=== PATIENT | female | born 1940 | race Caucasian/White ===

== ENCOUNTER 2019-08-08 20:40 | Inpatient (IN) | payer MEDICARE ==
[~2019-08-08] VITALS: Ht 170.2 cm; Wt 60.3 kg
[~2019-08-08 20:40] MED LIST: ASPI-482 PO; CALC400T5 PO; CHOL2000 PO; DOCU-109 PO; MTH/1CAP PO; POLY17PO29 PO; PRED5POW8 MC; SULF500T36 PO
[2019-08-08] MEDS ORDERED: IV NORMAL SALINE 1000ML BAG 1,000 ML IV ONE ×2 (20:45→23:00)
[2019-08-08 21:17] LABS: BASO % 0 % (0-3); EOS % 0 % (0-3); HEMATOCRIT 35.1 % (36.0-47.0); HEMOGLOBIN 11.9 g/dL (12.0-15.5); LYMPH % 8 % (24-48); MEAN CORPUSCULAR HEMOGLOBIN 31 pg (25-35); MEAN CORPUSCULAR HGB CONC 34 g/dL (31-37); MEAN CORPUSCULAR VOLUME 91 fL (79-100); MONO # 1.1 x10^3/uL (0.0-1.1); MONO % 9 % (0-9); NEUT # 9.9 x10^3/uL (1.8-7.7); NEUT % 82 % (31-73); PLATELET COUNT 283 x10^3/uL (140-400); RED BLOOD COUNT 3.85 x10^6/uL (3.50-5.40); RED CELL DISTRIBUTION WIDTH 13.6 % (11.5-14.5); WHITE BLOOD COUNT 12.1 x10^3/uL (4.0-11.0)
[2019-08-08 21:27] LABS: PROTHROMBIN TIME PATIENT 12.7 SEC (11.7-14.0)
[2019-08-08 21:36] LABS: CALCIUM 9.5 mg/dL (8.5-10.1); CREATININE 0.8 mg/dL (0.6-1.0); GFR 69.7; POTASSIUM 3.5 mmol/L (3.5-5.1)
--- NOTE | 2019-08-08 21:37 | RAD ---
CT scan of the head without contrast 08/08/2019 Clinical History: Confusion. Expressive aphasia. Technique: Unenhanced, contiguous, 5 mm axial sections were obtained through the head. One or more of the following individualized dose reduction techniques were utilized for this study: 1. Automated exposure control. 2. Adjustment of the mA and/or kV according to patient size. 3. Use of iterative reconstruction technique. Findings: Comparison study is dated 12/04/2014. There is generalized parenchymal atrophy. Areas of decreased attenuation are seen within the periventricular and subcortical white matter of both cerebral hemispheres consistent with areas of small vessel ischemic disease. No acute parenchymal abnormality is seen. No extra-axial fluid collection is noted. No skull fracture is seen. Impression: No acute intracranial abnormality is seen. This result was called to Dr. James at 2133 hours. Electronically signed by: Kwesi Sanz MD (08/08/2019 9:34 PM) [id number]
[2019-08-08 21:41] LABS: ALBUMIN 3.9 g/dL (3.4-5.0); ALBUMIN/GLOBULIN RATIO 1.1 (1.0-1.7); MAGNESIUM 2.1 mg/dL (1.8-2.4); TOTAL BILIRUBIN 0.3 mg/dL (0.2-1.0); TOTAL PROTEIN 7.3 g/dL (6.4-8.2)
--- NOTE | 2019-08-08 21:49 | RAD ---
CT scan of the cervical spine without contrast 08/08/2019 Clinical history: Neck injury. Technique: Unenhanced, contiguous, 0.625 mm axial sections were obtained through the cervical spine. 2.5 mm reconstructed axial and 2 mm coronal and sagittal reconstructed images were obtained. One or more of the following individualized dose reduction techniques were utilized for this study: 1. Automated exposure control. 2. Adjustment of the mA and/or kV according to patient size. 3. Use of iterative reconstruction technique. Findings: Sagittal and coronal reconstructed images demonstrate mild lateral curvature of the cervical spine, convex to the right. There is straightening of the normal cervical lordosis. Degenerative changes consisting of varying degrees of disc space narrowing, vertebral endplate sclerosis and mild anterior and posterior vertebral body osteophyte formation are seen throughout the cervical disc spaces. No fracture or subluxation of the cervical vertebrae is seen. Degenerative changes are seen involving the uncovertebral and facet joints throughout the cervical disc spaces. Impression: No fracture or subluxation of the cervical vertebra is identified. Electronically signed by: Kwesi Sanz MD (08/08/2019 9:46 PM) [id number]
--- NOTE | 2019-08-08 22:37 | PHYS DOC ---
Past Medical History Past Medical History: High Cholesterol, Other Additional Past Medical Histor: urinary hesitancy, rheum. arth., herpes Past Medical History Limited secondary to altered mental status Past Surgical History: Tonsillectomy, Other Additional Past Surgical Histo: uterine prolapse Past Surgical History Limited secondary to altered mental status Smoking Status: Never Smoker Alcohol Use: None Drug Use: None Social History Limited secondary to altered mental status Adult General Chief Complaint Chief Complaint: PAIN ON URINATION HPI HPI 78-year-old female presents via EMS with report of altered mental status with concern for possible urinary tract infection. Patient reportedly has had dysuria for the past week. reports patient has had similar episodes which he a ttributed to UTI and low potassium. Denies known fever. Denies trauma. Reports patient has been agitated and only wants to follow what her daughter recommends. Spouse reports he wanted to bring her earlier but patient had refused. History of present illness limited secondary to altered mental status. Review of Systems Review of Systems Constitutional: Denies fever or chills GI: Denies nausea or vomiting : Reports dysuria Neurologic: Reports altered mental status Review of systems limited secondary to altered mental status Current Medications Current Medications Current Medications Medications (Trade) Dose Ordered Sig/Marielena Start Time Stop Time Status Last Admin Dose Admin Aspirin (Aspirin Rectal Supp) 300 mg 1X ONCE 08/08/19 23:00 08/08/19 23:01 DC 08/08/19 23:00 300 MG Labetalol HCl (Normodyne Iv Push) 10 mg 1X ONCE 08/08/19 23:00 08/08/19 23:01 DC 08/08/19 23:24 10 MG Lorazepam (Ativan Inj) 0.5 mg 1X ONCE 08/09/19 00:30 08/09/19 00:31 DC 08/09/19 00:38 0.5 MG Ondansetron HCl (Zofran) 4 mg PRN Q8HRS PRN 08/09/19 00:00 08/09/19 23:59 08/09/19 00:38 4 MG Piperacillin Sod/ Tazobactam Sod 4.5 gm/Sodium Chloride 100 ml @ 200 mls/hr 1X ONCE 08/08/19 23:00 08/08/19 23:29 DC 08/08/19 23:24 200 MLS/HR Sodium Chloride 500 ml @ 500 mls/hr 1X ONCE 08/09/19 00:00 08/09/19 00:59 DC 08/08/19 23:24 500 MLS/HR Allergies Allergies Allergies Coded Allergies Type Severity Reaction Last Updated Verified atorvastatin Allergy Intermediate 12/04/14 No codeine Allergy Intermediate 12/04/14 No doxycycline Allergy Intermediate 12/04/14 No levofloxacin Allergy Intermediate 12/05/14 No meperidine Allergy Intermediate 12/04/14 No nitrofurantoin Allergy Intermediate 12/04/14 No solifenacin Allergy Intermediate 12/04/14 No tetracycline Allergy Intermediate 12/04/14 No tramadol Allergy Intermediate 12/05/14 No Physical Exam Physical Exam Constitutional: Well developed, well nourished, anxious, confused HENT: Normocephalic, atraumatic, oropharynx moist Eyes: PERRL, EOMI, conjunctiva normal, no discharge, no nystagmus Neck: Normal range of motion, no tenderness, supple Cardiovascular: Heart rate normal, regular rhythm Lungs & Thorax: Bilateral breath sounds clear to auscultation, no wheezing/rales/rhonchi Abdomen: Soft, no tenderness, no guarding/rebound tenderness/distention Skin: Warm, dry, no erythema, no rash Extremities: No tenderness, ROM intact, no edema Neurologic: Alert and oriented to name only, no focal deficit noted, patient with expressive aphasia with some dysarthria Psychologic: Affect anxious, judgment abnormal Current Patient Data Vital Signs Vital Signs Date Time Temp Pulse Resp B/P (MAP) Pulse Ox O2 Delivery O2 Flow Rate FiO2 08/09/19 02:07 84 18 94 08/08/19 23:24 164/74 08/08/19 20:54 97.6 Room Air 97.6 Lab Values Laboratory Tests Test 08/08/19 21:05 08/08/19 21:11 08/08/19 22:51 08/09/19 01:00 White Blood Count 12.1 x10^3/uL (4.0-11.0) H Red Blood Count 3.85 x10^6/uL (3.50-5.40) Hemoglobin 11.9 g/dL (12.0-15.5) L Hematocrit 35.1 % (36.0-47.0) L Mean Corpuscular Volume 91 fL (79-100) Mean Corpuscular Hemoglobin 31 pg (25-35) Mean Corpuscular Hemoglobin Concent 34 g/dL (31-37) Red Cell Distribution Width 13.6 % (11.5-14.5) Platelet Count 283 x10^3/uL (140-400) Neutrophils (%) (Auto) 82 % (31-73) H Lymphocytes (%) (Auto) 8 % (24-48) L Monocytes (%) (Auto) 9 % (0-9) Eosinophils (%) (Auto) 0 % (0-3) Basophils (%) (Auto) 0 % (0-3) Neutrophils # (Auto) 9.9 x10^3/uL (1.8-7.7) H Lymphocytes # (Auto) 1.0 x10^3/uL (1.0-4.8) Monocytes # (Auto) 1.1 x10^3/uL (0.0-1.1) Eosinophils # (Auto) 0.0 x10^3/uL (0.0-0.7) Basophils # (Auto) 0.0 x10^3/uL (0.0-0.2) Prothrombin Time 12.7 SEC (11.7-14.0) Prothrombin Time INR 1.0 (0.8-1.1) Activated Partial Thromboplast Time 26 SEC (24-38) Sodium Level 136 mmol/L (136-145) Potassium Level 3.5 mmol/L (3.5-5.1) Chloride Level 100 mmol/L (98-107) Carbon Dioxide Level 21 mmol/L (21-32) Anion Gap 15 (6-14) H Blood Urea Nitrogen 15 mg/dL (7-20) Creatinine 0.8 mg/dL (0.6-1.0) Estimated GFR (Cockcroft-Gault) 69.7 BUN/Creatinine Ratio 19 (6-20) Glucose Level 144 mg/dL (70-99) H Lactic Acid Level 3.2 mmol/L (0.4-2.0) H 2.0 mmol/L (0.4-2.0) Calcium Level 9.5 mg/dL (8.5-10.1) Magnesium Level 2.1 mg/dL (1.8-2.4) Total Bilirubin 0.3 mg/dL (0.2-1.0) Aspartate Amino Transferase (AST) 22 U/L (15-37) Alanine Aminotransferase (ALT) 23 U/L (14-59) Alkaline Phosphatase 68 U/L (46-116) Ammonia 11 mcmol/L (11-34) Creatine Kinase 104 U/L (26-192) Creatine Kinase MB (Mass) 1.3 ng/mL (0.0-3.6) Creatine Kinase MB Relative Index 1.3 % (0-4) Troponin I Quantitative < 0.017 ng/mL (0.000-0.055) Total Protein 7.3 g/dL (6.4-8.2) Albumin 3.9 g/dL (3.4-5.0) Albumin/Globulin Ratio 1.1 (1.0-1.7) Glucose (Fingerstick) 143 mg/dL (70-99) H Urine Collection Type U cath Urine Color Yellow Urine Clarity Clear Urine pH 7.5 (<5.0-8.0) Urine Specific [place] 1.010 (1.000-1.030) Urine Protein Negative mg/dL (NEG-TRACE) Urine Glucose (UA) Negative mg/dL (NEG) Urine Ketones (Stick) Negative mg/dL (NEG) Urine Blood Negative (NEG) Urine Nitrite Negative (NEG) Urine Bilirubin Negative (NEG) Urine Urobilinogen Dipstick 0.2 mg/dL (0.2 mg/dL) Urine Leukocyte Esterase Moderate (NEG) Urine RBC Occ /HPF (0-2) Urine WBC 20-40 /HPF (0-4) Urine Bacteria 0 /HPF (0-FEW) Test 08/09/19 02:38 Troponin I Quantitative 0.110 ng/mL (0.000-0.055) Laboratory Tests 08/08/19 21:05 Laboratory Tests 08/08/19 21:05 EKG EKG @2149 Sinus tachycardia at 102bpm, NO ST elevation, baseline artifact Radiology/Procedures Radiology/Procedures PROCEDURE: CT CODE STROKE HEAD WO CT scan of the head without contrast 08/08/2019 Clinical History: Confusion. Expressive aphasia. Technique: Unenhanced, contiguous, 5 mm axial sections were obtained through the head. One or more of the following individualized dose reduction techniques were utilized for this study: 1. Automated exposure control. 2. Adjustment of the mA and/or kV according to patient size. 3. Use of iterative reconstruction technique. Findings: Comparison study is dated 12/04/2014. There is generalized parenchymal atrophy. Areas of decreased attenuation are seen within the periventricular and subcortical white matter of both cerebral hemispheres consistent with areas of small vessel ischemic disease. No acute parenchymal abnormality is seen. No extra-axial fluid collection is noted. No skull fracture is seen. Impression: No acute intracranial abnormality is seen. This result was called to Dr. Mancini at 2133 hours. Electronically signed by: Kwesi Sanz MD (08/08/2019 9:34 PM) [id number] PROCEDURE: CT CERVICAL SPINE WO CONTRAST CT scan of the cervical spine without contrast 08/08/2019 Clinical history: Neck injury. Technique: Unenhanced, contiguous, 0.625 mm axial sections were obtained through the cervical spine. 2.5 mm reconstructed axial and 2 mm coronal and sagittal reconstructed images were obtained. One or more of the following individualized dose reduction techniques were utilized for this study: 1. Automated exposure control. 2. Adjustment of the mA and/or kV according to patient size. 3. Use of iterative reconstruction technique. Findings: Sagittal and coronal reconstructed images demonstrate mild lateral curvature of the cervical spine, convex to the right. There is straightening of the normal cervical lordosis. Degenerative changes consisting of varying degrees of disc space narrowing, vertebral endplate sclerosis and mild anterior and posterior vertebral body osteophyte formation are seen throughout the cervical disc spaces. No fracture or subluxation of the cervical vertebrae is seen. Degenerative changes are seen involving the uncovertebral and facet joints throughout the cervical disc spaces. Impression: No fracture or subluxation of the cervical vertebra is identified. Electronically signed by: Kwesi Sanz MD (08/08/2019 9:46 PM) [id number] CXR AP (Preliminary interpretation by ED physician): No acute process Course & Med Decision Making Course & Med Decision Making Pertinent Labs and Imaging studies reviewed. (See chart for details) Patient presents via EMS with report of altered mental status with history times one week of dysuria. Afebrile. Patient with expressive aphasia upon arrival. NIHSS 8. Code stroke initiated. Patient also complaining of neck pain. CT head/cervical spine without acute process. ASA given. Patient meets SIRS criteria with tachycardia and elevated WBC. Lactic acid within 3. UA with signs of infection. Severe sepsis criteria met. Sepsis IV bolusing provided. Empiric antibiotic initiated. Chest x-ray clear. EKG stable. Initial troponin within normal limits. Repeat troponin indeterminate. Repeat lactic acid improved. Hypertension addressed. Patient requiring admission for further evaluation and treatment. Discussed with Dr. Zimmerman (hospitalist) who is in agreement with admission. Discussed findings and plan with spouse, who acknowledges understanding and agreement. Dragon Disclaimer Dragon Disclaimer This electronic medical record was generated, in whole or in part, using a voice recognition dictation system. Departure Departure Impression: Primary Impression: Severe sepsis Additional Impressions: Altered mental status Expressive aphasia UTI (urinary tract infection) Elevated troponin Hypertension Disposition: ADMITTED INPATIENT Admitting Physician: MEDINA Barron) Condition: GUARDED Referrals: SHELDON VALENCIA MD (PCP) NIHSS Stroke Scale NIH Stroke Scale: NIH Stroke Scale Response (Comments) Value Level of Consciousness: 0 Alert/Responsive 0 LOC Questions: 1 Answers one correctly 1 LOC Commands: 0 Performs both tasks 0 Best Gaze: 0 Normal 0 Visual: 0 No visual loss 0 Facial Palsy: 0 Normal, symmetrical 0 Motor - Left Arm 0 No drift 0 Motor - Right Arm 0 No drift 0 Motor - Left Leg 2 Some effort 2 Motor: Right Leg 0 No drift 0 Limb Ataxia: 0 Absent 0 Sensory: 0 No loss 0 Best Language: 2 Severe aphasia 2 Dysathria: 2 Severe 2 Extinction and Inattention: 1 One sensory modality 1 Total 8 Date and Time of Reassessment Date: Aug 08, 2019 Time: 23:40 Fluid Challenge Is the fluid challenge complet: No IBW Target Volume Used: No BMI > 30: No Vital Signs Vital Signs: Vital Signs Date Time Temp Pulse Resp B/P (MAP) Pulse Ox O2 Delivery O2 Flow Rate FiO2 08/09/19 02:07 84 18 94 08/08/19 23:24 164/74 08/08/19 20:54 97.6 Room Air 97.6 Temperature Source: Oral Respirations Respiratory Effort: Normal, Non-Labored Respiratory Pattern: Normal Cardiovascular Pulse Rhythm: Regular Heart: Nml rate, reg. rhythm Lung Sounds Breath Sounds: Clear Capillary Refil Capillary Refill: Rt Hand < 3 seconds Peripheral Pulse Pulse Location: Radial Pulse Strength: Normal (2+) Pulse Assessment Method: Palpation Integumentary Skin: Warm, Dry, No Rashes Skin Moisture: Dry Skin Turgor: Normal Skin Color: warm, dry Fingernail Color: WNL Critical Care Time Critical care time was 30 minutes which includes time at bedside, spent in discussion of patient's care with specialists and/or family members, with interpretation of laboratory and/or radiological studies and is exclusive of procedures. Problem Qualifiers Additional Impressions: Altered mental status Altered mental status type: unspecified Qualified Codes: R41.82 - Altered mental status, unspecified UTI (urinary tract infection) Urinary tract infection type: acute cystitis Hematuria presence: without hematuria Qualified Codes: N30.00 - Acute cystitis without hematuria Hypertension Hypertension type: unspecified Qualified Codes: I10 - Essential (primary) hypertension ASHLEIGH MANCINI DO Aug 08, 2019 22:37
[2019-08-08] MEDS ORDERED: LABETALOL 20 MG/4 ML DISP.SYRIN. IVP ONE (23:00)
[2019-08-08] MEDS ORDERED: ASPIRIN RECTAL 300 MG SUPP. PR ONE (23:00)
[2019-08-08] MEDS ORDERED: PIPERACILLIN/TAZOBACTAM 4.5 GM in IV NORMAL SALINE 100ML 100 ML IV ONE (23:00)
[2019-08-08 23:01] LABS: BILIRUBIN,URINE NEGATIVE (NEG); CLARITY,URINE CLEAR; COLOR,URINE YELLOW; NITRITE,URINE NEGATIVE (NEG); PH,URINE 7.5 (<5.0-8.0); PROTEIN,URINE NEGATIVE (NEG-TRACE); UROBILINOGEN,URINE 0.2 mg/dL (0.2 mg/dL)
[2019-08-08 23:06] LABS: WBC,URINE 20-40 /HPF (0-4)
[2019-08-08 23:07] LABS: BACTERIA,URINE 0 /HPF (0-FEW); RBC,URINE OCC /HPF (0-2)
--- NOTE | 2019-08-08 23:36 | RAD ---
AP portable chest radiograph 08/08/2019 Clinical History: Weakness. An AP erect portable digital radiograph of the chest was obtained. Comparison study is dated 12/04/2014. The cardiac silhouette is normal in size. The thoracic aorta is tortuous. Atherosclerotic calcification of the thoracic aorta is seen. No acute pulmonary infiltrate is noted. No pneumothorax or pleural effusion is seen. There is diffuse osteopenia the visualized bony structures. Mild S-shaped curvature of the thoracolumbar spine is seen. Degenerative changes are seen involving the thoracic spine and both shoulders. Impression: No acute abnormality is seen. Electronically signed by: Kwesi Snaz MD (08/08/2019 11:33 PM) [id number]
[2019-08-09] MEDS ORDERED: IV NORMAL SALINE 500ML BAG 500 ML IV ONE
[2019-08-09 04:00] VITALS: BP 137/70
[2019-08-09 07:21] VITALS: BP 125/65
--- NOTE | 2019-08-09 07:44 | EKG ---
[facility] [address] [place] [address] Test Date: 2019-08-08 Test Time: 21:49:57 Pat Name: BRADEN YANG Department: Room: Gender: F [employer] In[employer]: : 1940 Requested By: ASHLEIGH MANCINI Order Number: [id number] Reading MD: Measurements Intervals Glennie Rate: 102 P: 164 OK: 198 QRS: 26 QRSD: 100 T: 74 QT: 364 QTc: 479 Interpretive Statements SINUS TACHYCARDIA T ABNORMALITY IN HIGH LATERAL LEADS ABNORMAL ECG RI6.01 No previous ECG available for comparison
[2019-08-09] MEDS ORDERED: ONDANSETRON PF 4 MG/2 ML VIAL. IV PRN ×2 (08:15)
[2019-08-09] MEDS ORDERED: POLYETHYLENE GLYCOL 3350 17 GM PACKET. PO PRN (08:15)
[2019-08-09] MEDS ORDERED: ACETAMINOPHEN 325 MG TABLET. PO PRN (08:15)
[2019-08-09] MEDS ORDERED: TOFA11TA PO (08:19)
--- NOTE | 2019-08-09 08:20 | PDOC1 ---
History and Physical Date of Admission Date of Admission DATE: 08/09/19 TIME: 08:10 History of Present Illness History of Present Illness Ms Geiger is a 78yo F w/ PMHx High Cholesterol, UTIs, Rheumatoid arthritis, Anxiety disorder, Panic attacks who presents via EMS with report of altered mental status with dysuria for the past week per . Afebrile. Patient with expressive aphasia upon arrival noted by ED physician with NIHSS 8, underwent CT head and CT head/cervical spine without acute process. ASA given. Patient tachycardic and elevated WBC 12.1. Lactic acid within 3. UA with positive leukocyte esterase. Sepsis IV bolus and empiric antibiotic initiated. Chest x- ray clear. EKG stable. Initial troponin within normal limits. Repeat troponin 0.110. Repeat lactic acid improved. Admitted for further treatment. Past Medical History Cardiovascular: Hyperlipidemia Pulmonary: No pertinent hx GI: No pertinent hx Heme/Onc: No pertinent hx Hepatobiliary: No pertinent hx Psych: Anxiety, Panic Rheumatologic: Rheumatoid arthritis Infectious disease: No pertinent hx ENT: No pertinent hx Renal/: No pertinent hx Endocrine: No pertinent hx Dermatology: No pertinent hx Family History Family History Reviewed. She cannot recall Family History: No Significant, Family History Unknown Social History Smoke: No ALCOHOL: none Drugs: None Current Problem List Problem List Problems Medical Problems: (1) Altered mental status Status: Acute (2) Altered mental status Status: Acute (3) Elevated troponin Status: Acute (4) Elevated troponin Status: Acute (5) Expressive aphasia Status: Acute (6) Expressive aphasia Status: Acute (7) Hypertension Status: Acute (8) Severe sepsis Status: Acute (9) Severe sepsis Status: Acute (10) UTI (urinary tract infection) Status: Acute (11) UTI (urinary tract infection) Status: Acute Current Medications Current Medications Current Medications Sodium Chloride 1,000 ml @ 1,000 mls/hr 1X ONCE IV Last administered on 08/08/19at 21:24; Start 08/08/19 at 20:45; Stop 08/08/19 at 21:44; Status DC Labetalol HCl (Normodyne Iv Push) 10 mg 1X ONCE IVP Last administered on 08/08/19at 23:24; Start 08/08/19 at 23:00; Stop 08/08/19 at 23:01; Status DC Piperacillin Sod/ Tazobactam Sod 4.5 gm/Sodium Chloride 100 ml @ 200 mls/hr 1X ONCE IV Last administered on 08/08/19at 23:24; Start 08/08/19 at 23:00; Stop 08/08/19 at 23:29; Status DC Sodium Chloride 1,000 ml @ 1,000 mls/hr 1X ONCE IV Last administered on 08/08/19at 23:00; Start 08/08/19 at 23:00; Stop 08/08/19 at 23:59; Status DC Sodium Chloride 500 ml @ 500 mls/hr 1X ONCE IV Last administered on 08/08/19at 23:24; Start 08/09/19 at 00:00; Stop 08/09/19 at 00:59; Status DC Aspirin (Aspirin Rectal Supp) 300 mg 1X ONCE AL Last administered on 08/08/19at 23:00; Start 08/08/19 at 23:00; Stop 08/08/19 at 23:01; Status DC Lorazepam (Ativan Inj) 0.5 mg 1X ONCE IVP Last administered on 08/09/19at 00:38; Start 08/09/19 at 00:30; Stop 08/09/19 at 00:31; Status DC Ondansetron HCl (Zofran) 4 mg PRN Q8HRS PRN IV NAUSEA/VOMITING 1ST CHOICE Last administered on 08/09/19at 00:38; Start 08/09/19 at 00:00; Stop 08/09/19 at 23:59 Active Scripts Active Reported Miralax (Polyethylene Glycol 3350) 17 Gm Powd.pack 1 Packet PO DAILY PRN Vitamin D (Cholecalciferol (Vitamin D3)) 2,000 Unit Capsule 1 Cap PO DAILY Prednisolone (Prednisolone, Micronized) 5 Gm Powder 12.5 Mg MC DAILY Colace (Docusate Sodium) 100 Mg Capsule 200 Cap PO BID Tums Ultra (Calcium Carbonate) 400 Mg Tab.chew 750 Mg PO DAILY Aspir 81 (Aspirin) 81 Mg Tablet.dr 81 Tab PO DAILY Sulfasalazine Dr (Sulfasalazine) 500 Mg Tablet.dr 1,000 Mg PO BID Uribel Capsule (Mth/Me Blue/Sod Phos/Phen/Hyos) 1 Each Capsule 1 Cap PO BID Allergies Allergies: Coded Allergies: atorvastatin (Unverified Allergy, Intermediate, 12/04/14) codeine (Unverified Allergy, Intermediate, 12/04/14) doxycycline (Unverified Allergy, Intermediate, 12/04/14) levofloxacin (Unverified Allergy, Intermediate, 12/05/14) meperidine (Unverified Allergy, Intermediate, 12/04/14) nitrofurantoin (Unverified Allergy, Intermediate, 12/04/14) solifenacin (Unverified Allergy, Intermediate, 12/04/14) tetracycline (Unverified Allergy, Intermediate, 12/04/14) tramadol (Unverified Allergy, Intermediate, 12/05/14) ROS Review of System Overall negative, however due to confusion is not reliable. General: No: Chills, Night Sweats, Fatigue, Malaise, Appetite, Other PSYCHOLOGICAL ROS: No: Anxiety, Behavioral Disorder, Concentration difficultie, Decreased libido, Depression, Disorientation, Hallucinations, Hostility, Irritablity, Memory difficulties, Mood Swings, Obsessive thoughts, Physical abuse, Sexual abuse, Sleep disturbances, Suicidal ideation, Other Eyes: No Blurry vision, No Decreased vision, No Double vision, No Dry eyes, No Excessive tearing, No Eye Pain, No Itchy Eyes, No Loss of vision, No Harshal tophobia, No Scotomata, No Uses contacts, No Uses glasses, No Other HEENT: No: Heacaches, Visual Changes, Hearing change, Nasal congestion, Nasal discharge, Oral lesions, Sinus pain, Sore Throat, Epistaxis, Sneezing, Snoring, Tinnitus, Vertigo, Vocal changes, Other ALLERGY AND IMMUNOLOGY: No: Hives, Insect Bite Sensitivity, Itchy/Watery Eyes, Nasal Congestion, Post Nasal Drip, Seasonal Allergies, Other Hematological and Lymphatic: No: Bleeding Problems, Blood Clots, Blood Transfusions, Brusing, Night Sweats, Pallor, Swollen Lymph Nodes, Other ENDOCRINE: No: Breast Changes, Galactorrhea, Hair Pattern Changes, Hot Flashes, Malaise/lethargy, Mood Swings, Palpitations, Polydipsia/polyuria, Skin Changes, Temperature Intolerance, Unexpected Weight Changes, Other Breast: No New/Changing Breast Lumps, No Nipple changes, No Nipple discharge, No Other Respiratory: No: Cough, Hemoptysis, Orthopnea, Pleuritic Pain, Shortness of breath, SOB with excertion, Sputum Changes, Stridor, Tachypnea, Wheezing, Other Cardiovascular: No Chest Pain, No Palpitations, No Orthopnea, No Paroxysmal Noc. Dyspnea, No Edema, No Lt Headedness, No Other Gastrointestinal: No Nausea, No Vomiting, No Abdominal Pain, No Diarrhea, No Constipation, No Melena, No Hematochezia, No Other Genitourinary: No Dysuria, No Frequency, No Incontinence, No Hematuria, No Retention, No Discharge, No Urgency, No Pain, No Flank Pain, No Other, No , No , No , No , No , No , No Musculoskeletal: No Gait Disturbance, No Joint Pain, No Joint Stiffness, No Joint Swelling, No Muscle Pain, No Muscular Weakness, No Pain In:, No Swelling In:, No Other Neurological: No Behavorial Changes, No Bowel/Bladder ControlChng, No Confusion, No Dizziness, No Gait Disturbance, No Headaches, No Impaired Coord/balance, No Memory Loss, No Numbness/Tingling, No Seizures, No Speech Problems, No Tremors, No Visual Changes, No Weakness, No Other Skin: No Dry Skin, No Eczema, No Hair Changes, No Lumps, No Mole Changes, No Mottling, No Nail Changes, No Pruritus, No Rash, No Skin Lesion Changes, No Other, No Acne Physical Exam General: Alert, Cooperative, No acute distress HEENT: Atraumatic, PERRLA, EOMI, Mucous membr. moist/pink Lungs: Clear to auscultation, Normal air movement Heart: S1S2, RRR, no thrills, no rubs Abdomen: Normal bowel sounds, Soft, No tenderness, No hepatosplenomegaly, No masses Rectal Exam: not examined Extremities: No clubbing, No cyanosis, No edema, Normal pulses, No tenderness/swelling Skin: No rashes, No breakdown, No significant lesion Neuro: Cranial nerves 3-12 NL, Reflexes 2+ Psych/Mental Status: Other (Confused) Vitals Vitals Vital Signs Date Time Temp Pulse Resp B/P (MAP) Pulse Ox O2 Delivery O2 Flow Rate FiO2 08/09/19 07:21 97.9 85 18 125/65 (85) 98 Room Air 97.9 Labs Labs Laboratory Tests Test 08/08/19 21:05 08/08/19 21:11 08/08/19 22:51 08/09/19 01:00 White Blood Count 12.1 x10^3/uL (4.0-11.0) Red Blood Count 3.85 x10^6/uL (3.50-5.40) Hemoglobin 11.9 g/dL (12.0-15.5) Hematocrit 35.1 % (36.0-47.0) Mean Corpuscular Volume 91 fL (79-100) Mean Corpuscular Hemoglobin 31 pg (25-35) Mean Corpuscular Hemoglobin Concent 34 g/dL (31-37) Red Cell Distribution Width 13.6 % (11.5-14.5) Platelet Count 283 x10^3/uL (140-400) Neutrophils (%) (Auto) 82 % (31-73) Lymphocytes (%) (Auto) 8 % (24-48) Monocytes (%) (Auto) 9 % (0-9) Eosinophils (%) (Auto) 0 % (0-3) Basophils (%) (Auto) 0 % (0-3) Neutrophils # (Auto) 9.9 x10^3/uL (1.8-7.7) Lymphocytes # (Auto) 1.0 x10^3/uL (1.0-4.8) Monocytes # (Auto) 1.1 x10^3/uL (0.0-1.1) Eosinophils # (Auto) 0.0 x10^3/uL (0.0-0.7) Basophils # (Auto) 0.0 x10^3/uL (0.0-0.2) Prothrombin Time 12.7 SEC (11.7-14.0) Prothromb Time International Ratio 1.0 (0.8-1.1) Activated Partial Thromboplast Time 26 SEC (24-38) Sodium Level 136 mmol/L (136-145) Potassium Level 3.5 mmol/L (3.5-5.1) Chloride Level 100 mmol/L (98-107) Carbon Dioxide Level 21 mmol/L (21-32) Anion Gap 15 (6-14) Blood Urea Nitrogen 15 mg/dL (7-20) Creatinine 0.8 mg/dL (0.6-1.0) Estimated GFR (Cockcroft-Gault) 69.7 BUN/Creatinine Ratio 19 (6-20) Glucose Level 144 mg/dL (70-99) Lactic Acid Level 3.2 mmol/L (0.4-2.0) 2.0 mmol/L (0.4-2.0) Calcium Level 9.5 mg/dL (8.5-10.1) Magnesium Level 2.1 mg/dL (1.8-2.4) Total Bilirubin 0.3 mg/dL (0.2-1.0) Aspartate Amino Transf (AST/SGOT) 22 U/L (15-37) Alanine Aminotransferase (ALT/SGPT) 23 U/L (14-59) Alkaline Phosphatase 68 U/L (46-116) Ammonia 11 mcmol/L (11-34) Creatine Kinase 104 U/L (26-192) Creatine Kinase MB (Mass) 1.3 ng/mL (0.0-3.6) Creatine Kinase MB Relative Index 1.3 % (0-4) Troponin I Quantitative < 0.017 ng/mL (0.000-0.055) Total Protein 7.3 g/dL (6.4-8.2) Albumin 3.9 g/dL (3.4-5.0) Albumin/Globulin Ratio 1.1 (1.0-1.7) Glucose (Fingerstick) 143 mg/dL (70-99) Urine Collection Type U cath Urine Color Yellow Urine Clarity Clear Urine pH 7.5 (<5.0-8.0) Urine Specific [place] 1.010 (1.000-1.030) Urine Protein Negative mg/dL (NEG-TRACE) Urine Glucose (UA) Negative mg/dL (NEG) Urine Ketones (Stick) Negative mg/dL (NEG) Urine Blood Negative (NEG) Urine Nitrite Negative (NEG) Urine Bilirubin Negative (NEG) Urine Urobilinogen Dipstick 0.2 mg/dL (0.2 mg/dL) Urine Leukocyte Esterase Moderate (NEG) Urine RBC Occ /HPF (0-2) Urine WBC 20-40 /HPF (0-4) Urine Bacteria 0 /HPF (0-FEW) Test 08/09/19 02:38 Troponin I Quantitative 0.110 ng/mL (0.000-0.055) Laboratory Tests Test 08/08/19 21:05 08/08/19 21:11 08/08/19 22:51 08/09/19 01:00 White Blood Count 12.1 x10^3/uL (4.0-11.0) Red Blood Count 3.85 x10^6/uL (3.50-5.40) Hemoglobin 11.9 g/dL (12.0-15.5) Hematocrit 35.1 % (36.0-47.0) Mean Corpuscular Volume 91 fL (79-100) Mean Corpuscular Hemoglobin 31 pg (25-35) Mean Corpuscular Hemoglobin Concent 34 g/dL (31-37) Red Cell Distribution Width 13.6 % (11.5-14.5) Platelet Count 283 x10^3/uL (140-400) Neutrophils (%) (Auto) 82 % (31-73) Lymphocytes (%) (Auto) 8 % (24-48) Monocytes (%) (Auto) 9 % (0-9) Eosinophils (%) (Auto) 0 % (0-3) Basophils (%) (Auto) 0 % (0-3) Neutrophils # (Auto) 9.9 x10^3/uL (1.8-7.7) Lymphocytes # (Auto) 1.0 x10^3/uL (1.0-4.8) Monocytes # (Auto) 1.1 x10^3/uL (0.0-1.1) Eosinophils # (Auto) 0.0 x10^3/uL (0.0-0.7) Basophils # (Auto) 0.0 x10^3/uL (0.0-0.2) Prothrombin Time 12.7 SEC (11.7-14.0) Prothromb Time International Ratio 1.0 (0.8-1.1) Activated Partial Thromboplast Time 26 SEC (24-38) Sodium Level 136 mmol/L (136-145) Potassium Level 3.5 mmol/L (3.5-5.1) Chloride Level 100 mmol/L (98-107) Carbon Dioxide Level 21 mmol/L (21-32) Anion Gap 15 (6-14) Blood Urea Nitrogen 15 mg/dL (7-20) Creatinine 0.8 mg/dL (0.6-1.0) Estimated GFR (Cockcroft-Gault) 69.7 BUN/Creatinine Ratio 19 (6-20) Glucose Level 144 mg/dL (70-99) Lactic Acid Level 3.2 mmol/L (0.4-2.0) 2.0 mmol/L (0.4-2.0) Calcium Level 9.5 mg/dL (8.5-10.1) Magnesium Level 2.1 mg/dL (1.8-2.4) Total Bilirubin 0.3 mg/dL (0.2-1.0) Aspartate Amino Transf (AST/SGOT) 22 U/L (15-37) Alanine Aminotransferase (ALT/SGPT) 23 U/L (14-59) Alkaline Phosphatase 68 U/L (46-116) Ammonia 11 mcmol/L (11-34) Creatine Kinase 104 U/L (26-192) Creatine Kinase MB (Mass) 1.3 ng/mL (0.0-3.6) Creatine Kinase MB Relative Index 1.3 % (0-4) Troponin I Quantitative < 0.017 ng/mL (0.000-0.055) Total Protein 7.3 g/dL (6.4-8.2) Albumin 3.9 g/dL (3.4-5.0) Albumin/Globulin Ratio 1.1 (1.0-1.7) Glucose (Fingerstick) 143 mg/dL (70-99) Urine Collection Type U cath Urine Color Yellow Urine Clarity Clear Urine pH 7.5 (<5.0-8.0) Urine Specific [place] 1.010 (1.000-1.030) Urine Protein Negative mg/dL (NEG-TRACE) Urine Glucose (UA) Negative mg/dL (NEG) Urine Ketones (Stick) Negative mg/dL (NEG) Urine Blood Negative (NEG) Urine Nitrite Negative (NEG) Urine Bilirubin Negative (NEG) Urine Urobilinogen Dipstick 0.2 mg/dL (0.2 mg/dL) Urine Leukocyte Esterase Moderate (NEG) Urine RBC Occ /HPF (0-2) Urine WBC 20-40 /HPF (0-4) Urine Bacteria 0 /HPF (0-FEW) Test 08/09/19 02:38 Troponin I Quantitative 0.110 ng/mL (0.000-0.055) Images Images CT Head: There is generalized parenchymal atrophy. Areas of decreased attenuation are seen within the periventricular and subcortical white matter of both cerebral hemispheres consistent with areas of small vessel ischemic disease. No acute parenchymal abnormality is seen. No extra-axial fluid collection is noted. No skull fracture is seen. Impression: No acute intracranial abnormality is seen. CT scan of the cervical spine w/o contrast: Sagittal and coronal reconstructed images demonstrate mild lateral curvature of the cervical spine, convex to the right. There is straightening of the normal cervical lordosis. Degenerative changes consisting of varying degrees of disc space narrowing, vertebral endplate sclerosis and mild anterior and posterior vertebral body osteophyte formation are seen throughout the cervical disc spaces. No fracture or subluxation of the cervical vertebrae is seen. Degenerative changes are seen involving the uncovertebral and facet joints throughout the cervical disc spaces. Impression: No fracture or subluxation of the cervical vertebra is identified. VTE Prophylaxis Ordered VTE Prophylaxis Devices: Yes VTE Pharmacological Prophylaxi: Yes Assessment/Plan Assessment/Plan A/P: Acute encephalopathy - likely toxic from UTI, will cont to treat Sepsis - meets SIRS criteria with abnormal UA, end-organ dysfunction with confusion Expressive aphasia - no CVA noted on CT Urinary tract infection Elevated troponin - will trend Hypertension High Cholesterol Frequent UTIs - Rheumatoid arthritis - on xeljanz Anxiety disorder with Panic attacks - not on meds currently FEN - ADAT PPX - Lovenox FULL CODE Dispo - inpatient TERA GIVENS MD Aug 09, 2019 08:20
[2019-08-09] MEDS ORDERED: DOCUSATE SODIUM 100 MG CAPSULE. PO SCH (09:00)
[2019-08-09] MEDS: CHOLECALCIFEROL (VITAMIN D3) 1,000 UNIT TABLET PO SCH (09:00)
[2019-08-09] MEDS: ENOXAPARIN 40 MG/0.4 ML SYRINGE. SQ SCH (09:03)
[2019-08-09] MEDS: cefTRIAXone IV Push 1 GM VIAL. IVP SCH (09:04)
[2019-08-09 11:02] LABS: BASO % 0 % (0-3); EOS % 0 % (0-3); HEMATOCRIT 33.2 % (36.0-47.0); HEMOGLOBIN 11.3 g/dL (12.0-15.5); LYMPH # 0.9 x10^3/uL (1.0-4.8); LYMPH % 10 % (24-48); MEAN CORPUSCULAR HEMOGLOBIN 31 pg (25-35); MEAN CORPUSCULAR HGB CONC 34 g/dL (31-37); MEAN CORPUSCULAR VOLUME 92 fL (79-100); MONO # 1.1 x10^3/uL (0.0-1.1); MONO % 12 % (0-9); NEUT # 7.3 x10^3/uL (1.8-7.7); NEUT % 78 % (31-73); PLATELET COUNT 256 x10^3/uL (140-400); RED BLOOD COUNT 3.61 x10^6/uL (3.50-5.40); RED CELL DISTRIBUTION WIDTH 13.5 % (11.5-14.5); WHITE BLOOD COUNT 9.3 x10^3/uL (4.0-11.0)
[2019-08-09 11:04] VITALS: BP 133/59
[2019-08-09 11:23] LABS: CREATININE 0.7 mg/dL (0.6-1.0); GFR 81.4
--- NOTE | 2019-08-09 11:24 | PDOC2 ---
ANNELIESE IMNAYA MASTIC MAN 08/09/19 1124: CARDIAC CONSULT DATE OF CONSULT Date of Consult DATE: 08/09/19 TIME: 11:18 REASON FOR CONSULT Reason for Consult: Elevated troponin REFERRING PHYSICIAN Referring Physician: Dr. James. SOURCE Source: Chart review, Patient HISTORY OF PRESENT ILLNESS HISTORY OF PRESENT ILLNESS This is a 78 yo female who presented secondary to altered mental status and expressive aphasia. Troponin was noted to be mildly elevated, which prompted this consult. She denies any chest pain, palpitations, dizziness, diaphoresis, SOA, or nausea/vomiting. Reports having a heart cath at [facility] about 3 years ago without intervention. PAST MEDICAL HISTORY Cardiovascular: Hyperlipidemia Psych: Anxiety Musculoskeletal: Osteoarthritis PAST SURGICAL HISTORY Past Surgical History: No pertinent history FAMILY HISTORY Family History: Hypertension SOCIAL HISTORY Smoke: No ALCOHOL: none Drugs: None Lives: with Family CURRENT MEDICATIONS CURRENT MEDICATIONS Current Medications Medications (Trade) Dose Ordered Sig/Marielena Route PRN Reason Start Time Stop Time Status Last Admin Dose Admin Sodium Chloride 1,000 ml @ 1,000 mls/hr 1X ONCE IV 08/08/19 20:45 08/08/19 21:44 DC 08/08/19 21:24 Labetalol HCl (Normodyne Iv Push) 10 mg 1X ONCE IVP 08/08/19 23:00 08/08/19 23:01 DC 08/08/19 23:24 Piperacillin Sod/ Tazobactam Sod 4.5 gm/Sodium Chloride 100 ml @ 200 mls/hr 1X ONCE IV 08/08/19 23:00 08/08/19 23:29 DC 08/08/19 23:24 Sodium Chloride 1,000 ml @ 1,000 mls/hr 1X ONCE IV 08/08/19 23:00 08/08/19 23:59 DC 08/08/19 23:00 Sodium Chloride 500 ml @ 500 mls/hr 1X ONCE IV 08/09/19 00:00 08/09/19 00:59 DC 08/08/19 23:24 Aspirin (Aspirin Rectal Supp) 300 mg 1X ONCE FL 08/08/19 23:00 08/08/19 23:01 DC 08/08/19 23:00 Lorazepam (Ativan Inj) 0.5 mg 1X ONCE IVP 08/09/19 00:30 08/09/19 00:31 DC 08/09/19 00:38 Ondansetron HCl (Zofran) 4 mg PRN Q8HRS PRN IV NAUSEA/VOMITING 1ST CHOICE 08/09/19 00:00 08/09/19 08:18 DC 08/09/19 00:38 Enoxaparin Sodium (Lovenox 40mg Syringe) 40 mg Q24H SQ 08/09/19 09:00 08/09/19 09:03 Ceftriaxone Sodium (Rocephin) 1 gm Q24H IVP 08/09/19 09:00 08/09/19 09:04 ALLERGIES ALLERGIES: Coded Allergies: atorvastatin (Unverified Allergy, Intermediate, 12/04/14) codeine (Unverified Allergy, Intermediate, 12/04/14) doxycycline (Unverified Allergy, Intermediate, 12/04/14) levofloxacin (Unverified Allergy, Intermediate, 12/05/14) meperidine (Unverified Allergy, Intermediate, 12/04/14) nitrofurantoin (Unverified Allergy, Intermediate, 12/04/14) solifenacin (Unverified Allergy, Intermediate, 12/04/14) tetracycline (Unverified Allergy, Intermediate, 12/04/14) tramadol (Unverified Allergy, Intermediate, 12/05/14) ROS Review of System 14 point ROS conducted with pertinent positives noted above in HPI PHYSICAL EXAM General: Alert, Cooperative, Other (expressive aphasia ) HEENT: Atraumatic, Mucous membr. moist/pink Lungs: Clear to auscultation Heart: Regular rate, Normal S1, Normal S2 Abdomen: Soft Extremities: No edema, Normal pulses Skin: No significant lesion Neuro: Normal speech, Sensation intact Psych/Mental Status: Mental status NL MUSCULOSKELETAL: Osteoarthritic changes both hands VITALS/I&O VITALS/I&O: Vital Signs Date Time Temp Pulse Resp B/P (MAP) Pulse Ox O2 Delivery O2 Flow Rate FiO2 08/09/19 11:04 98.3 77 18 133/59 (83) 95 Room Air 98.3 I & O 08/08/19 08/08/19 08/09/19 15:00 23:00 07:00 Intake Total 1000 ml 2600 ml Balance 1000 ml 2600 ml LABS Lab: Laboratory Tests Test 08/08/19 21:05 08/08/19 21:11 08/08/19 22:51 08/09/19 01:00 White Blood Count 12.1 x10^3/uL (4.0-11.0) H Red Blood Count 3.85 x10^6/uL (3.50-5.40) Hemoglobin 11.9 g/dL (12.0-15.5) L Hematocrit 35.1 % (36.0-47.0) L Mean Corpuscular Volume 91 fL (79-100) Mean Corpuscular Hemoglobin 31 pg (25-35) Mean Corpuscular Hemoglobin Concent 34 g/dL (31-37) Red Cell Distribution Width 13.6 % (11.5-14.5) Platelet Count 283 x10^3/uL (140-400) Neutrophils (%) (Auto) 82 % (31-73) H Lymphocytes (%) (Auto) 8 % (24-48) L Monocytes (%) (Auto) 9 % (0-9) Eosinophils (%) (Auto) 0 % (0-3) Basophils (%) (Auto) 0 % (0-3) Neutrophils # (Auto) 9.9 x10^3/uL (1.8-7.7) H Lymphocytes # (Auto) 1.0 x10^3/uL (1.0-4.8) Monocytes # (Auto) 1.1 x10^3/uL (0.0-1.1) Eosinophils # (Auto) 0.0 x10^3/uL (0.0-0.7) Basophils # (Auto) 0.0 x10^3/uL (0.0-0.2) Prothrombin Time 12.7 SEC (11.7-14.0) Prothrombin Time INR 1.0 (0.8-1.1) Activated Partial Thromboplast Time 26 SEC (24-38) Sodium Level 136 mmol/L (136-145) Potassium Level 3.5 mmol/L (3.5-5.1) Chloride Level 100 mmol/L (98-107) Carbon Dioxide Level 21 mmol/L (21-32) Anion Gap 15 (6-14) H Blood Urea Nitrogen 15 mg/dL (7-20) Creatinine 0.8 mg/dL (0.6-1.0) Estimated GFR (Cockcroft-Gault) 69.7 BUN/Creatinine Ratio 19 (6-20) Glucose Level 144 mg/dL (70-99) H Lactic Acid Level 3.2 mmol/L (0.4-2.0) H 2.0 mmol/L (0.4-2.0) Calcium Level 9.5 mg/dL (8.5-10.1) Magnesium Level 2.1 mg/dL (1.8-2.4) Total Bilirubin 0.3 mg/dL (0.2-1.0) Aspartate Amino Transferase (AST) 22 U/L (15-37) Alanine Aminotransferase (ALT) 23 U/L (14-59) Alkaline Phosphatase 68 U/L (46-116) Ammonia 11 mcmol/L (11-34) Creatine Kinase 104 U/L (26-192) Creatine Kinase MB (Mass) 1.3 ng/mL (0.0-3.6) Creatine Kinase MB Relative Index 1.3 % (0-4) Troponin I Quantitative < 0.017 ng/mL (0.000-0.055) Total Protein 7.3 g/dL (6.4-8.2) Albumin 3.9 g/dL (3.4-5.0) Albumin/Globulin Ratio 1.1 (1.0-1.7) Glucose (Fingerstick) 143 mg/dL (70-99) H Urine Collection Type U cath Urine Color Yellow Urine Clarity Clear Urine pH 7.5 (<5.0-8.0) Urine Specific [place] 1.010 (1.000-1.030) Urine Protein Negative mg/dL (NEG-TRACE) Urine Glucose (UA) Negative mg/dL (NEG) Urine Ketones (Stick) Negative mg/dL (NEG) Urine Blood Negative (NEG) Urine Nitrite Negative (NEG) Urine Bilirubin Negative (NEG) Urine Urobilinogen Dipstick 0.2 mg/dL (0.2 mg/dL) Urine Leukocyte Esterase Moderate (NEG) Urine RBC Occ /HPF (0-2) Urine WBC 20-40 /HPF (0-4) Urine Bacteria 0 /HPF (0-FEW) Test 08/09/19 02:38 08/09/19 10:30 Troponin I Quantitative 0.110 ng/mL (0.000-0.055) 0.729 ng/mL (0.000-0.055) White Blood Count 9.3 x10^3/uL (4.0-11.0) Red Blood Count 3.61 x10^6/uL (3.50-5.40) Hemoglobin 11.3 g/dL (12.0-15.5) L Hematocrit 33.2 % (36.0-47.0) L Mean Corpuscular Volume 92 fL (79-100) Mean Corpuscular Hemoglobin 31 pg (25-35) Mean Corpuscular Hemoglobin Concent 34 g/dL (31-37) Red Cell Distribution Width 13.5 % (11.5-14.5) Platelet Count 256 x10^3/uL (140-400) Neutrophils (%) (Auto) 78 % (31-73) H Lymphocytes (%) (Auto) 10 % (24-48) L Monocytes (%) (Auto) 12 % (0-9) H Eosinophils (%) (Auto) 0 % (0-3) Basophils (%) (Auto) 0 % (0-3) Neutrophils # (Auto) 7.3 x10^3/uL (1.8-7.7) Lymphocytes # (Auto) 0.9 x10^3/uL (1.0-4.8) L Monocytes # (Auto) 1.1 x10^3/uL (0.0-1.1) Eosinophils # (Auto) 0.0 x10^3/uL (0.0-0.7) Basophils # (Auto) 0.0 x10^3/uL (0.0-0.2) Laboratory Tests 08/08/19 21:05 08/09/19 10:30 Laboratory Tests 08/08/19 21:05 ASSESSMENT/PLAN ASSESSMENT/PLAN 1. Encephalopathy, expressive aphasia; CT head without acute findings 2. UTI 3. Leukocytosis, lactic acidosis 4. Mild troponin elevation; peak 0.11. Reported cath 3 years ago without intervention at [facility]. CP free. 5. Hyperlipidemia; allergy to statin 6. Hypertension; controlled 7. Hypokalemia, hypomagnesemia Recommendations Baseline echo to assess LV systolic function Lipids ASA therapy Allergy to statin Obtain cardiac records from [facility] Antibiotic therapy for UTI Could consider outpatient ischemic evaluation ABIGAIL DUDLEY MD 08/10/19 1023: CARDIAC CONSULT ASSESSMENT/PLAN ASSESSMENT/PLAN Patient seen and examined 08/09/19. Agree with CAB STARTER's assessment and plan. Slight troponin elevation probably demand ischemia. 2-D echo showed normal LV function without any wall motion abnormalities. We will consider ischemic evaluation outpatient. Continue management for encephalopathy/UTI per primary team. Thank you for your consultation. ANNELIESE MINAYA APRN Aug 09, 2019 11:24 ABIGAIL DUDLEY MD Aug 10, 2019 10:23
[2019-08-09 11:26] LABS: POTASSIUM 2.6 mmol/L (3.5-5.1)
[2019-08-09 11:56] LABS: CHOLESTEROL/HDL RATIO 2.7
[2019-08-09] MEDS: DOCUSATE SODIUM 100 MG CAPSULE. PO SCH ×2 (12:01→21:01)
[2019-08-09] MEDS: CALCIUM CARBONATE 500 MG TAB.CHEW PO SCH (12:02)
[2019-08-09] MEDS: ASPIRIN ENTERIC COATED 81 MG TABLET.DR. PO SCH (12:02)
[2019-08-09] MEDS: TOFACITINIB CITRATE 11 MG PO SCH (12:29)
[2019-08-09] MEDS ORDERED: POTASSIUM CHLORIDE 20 MEQ TABLET.ER. PO ONE (13:15)
[2019-08-09] MEDS: POTASSIUM CHLORIDE 10MEQ 100 ML IV SCH ×4 (13:58→17:45)
[2019-08-09 15:09] VITALS: BP 136/68
--- NOTE | 2019-08-09 15:12 | NUR ---
SS following for discharge planning. SS reviewed pt chart and discussed with pt RN. Pt is from home with spouse and is currently on room air. PT/OT ordered. SS will continue to follow for discharge planning.
--- NOTE | 2019-08-09 15:27 | CARD ---
MR#: [id number] Date of Study: 08/09/2019 Ordering Physician: ANNELIESE MINAYA, Referring Physician: ANNELIESE MINAYA, Tech: Quin Aaron RYNE APPROVED REPORT EXAM: Two-dimensional and M-mode echocardiogram with Doppler and color Doppler. Other Information Quality : Fair INDICATION Elevated Troponin RISK FACTORS Hyperlipidemia 2D DIMENSIONS Left Atrium(2D)3.0 (1.6-4.0cm)IVSd0.7 (0.7-1.1cm) Aortic Root(2D)2.7 (2.0-3.7cm)LVDd4.4 (3.9-5.9cm) LVOT Diameter2.1 (1.8-2.4cm)PWd0.7 (0.7-1.1cm) LVDs3.3 (2.5-4.0cm)FS (%) 26.7 % SV46.8 mlLVEF(%)55.0 (>50%) Aortic Valve AoV Peak Dima.128.2cm/sAoV VTI26.4cm AO Peak GR.6.6mmHgLVOT Peak Dima.114.7cm/s AO Mean GR.4mmHgAVA (VMAX)2.96cm2 RD (VTI)2.80cm2 Mitral Valve MV E Cwaqxxqo02.0cm/sMV DECEL [id number] MV A Byiyfqsy68.0cm/sE/A Ratio0.9 Tricuspid Valve TR P. Kkpboduy200uq/sRAP DHONXUCS2whPn TR Peak Gr.59vpEbJGMQ59ujHv Pulmonary Vein S1 Hufzhcft64.5cm/sD2 Larmrywg28.0cm/s LEFT VENTRICLE The left ventricle is normal size. There is normal left ventricular wall thickness. The left ventricu lar systolic function is normal. The Ejection Fraction is 55-60%. There is normal LV segmental wall m otion. Transmitral Doppler flow pattern is Grade I-abnormal relaxation pattern. RIGHT VENTRICLE The right ventricle is normal size. The right ventricular systolic function is normal. ATRIA The left atrium size is normal. The right atrium size is normal. The interatrial septum is intact wit h no evidence for an atrial septal defect or patent foramen ovale as noted on 2-D or Doppler imaging. AORTIC VALVE The aortic valve is calcified but opens well. Doppler and Color Flow revealed trace aortic regurgitat ion. There is no significant aortic valvular stenosis. MITRAL VALVE The mitral valve is calcified but opens well. There is no evidence of mitral valve prolapse. There is no mitral valve stenosis. Doppler and Color Flow revealed no mitral valve regurgitation noted. TRICUSPID VALVE The tricuspid valve is normal in structure and function. Doppler and Color Flow revealed trace tricus pid regurgitation. The PA pressure was estimated at 27 mmHg. There is no tricuspid valve stenosis. PULMONIC VALVE The pulmonic valve is not well visualized. Doppler and Color Flow revealed no pulmonic valvular regur gitation. There is no pulmonic valvular stenosis. GREAT VESSELS The aortic root is normal in size. The ascending aorta is not well seen. The IVC is normal in size an d collapses >50% with inspiration. PERICARDIAL EFFUSION There is no evidence of significant pericardial effusion. Critical Notification Critical Value: No <Conclusion> The left ventricular systolic function is normal. The Ejection Fraction is 55-60%. There is normal LV segmental wall motion. Transmitral Doppler flow pattern is Grade I-abnormal relaxation pattern. Doppler and Color Flow revealed trace tricuspid regurgitation. The PA pressure was estimated at 27 mmHg. There is no evidence of significant pericardial effusion. Signed by : Binh Collado, Electronically Approved : 08/09/2019 15:26:39
--- NOTE | 2019-08-09 17:10 | PDOC2 ---
NEUROLOGY CONSULT Date of Admission Date of Admission DATE: 08/09/19 TIME: 16:58 Reason for Consult Reason for Consult: IMPRESSION: Aphasia. TIA likely. UTI. Hypokalemia, K+ 2.6. Sepsis? Elevated Troponin. HTN. HLD. RECOMMENDATIONS/PLAN: ASA daily. She was allergic to Statin. Treat UTI. Treat medical diseases. Carotid A US + Doppler. Echo. Please consult Cardiology. History of Present Illness This is a 78-year-old female patient with PMHx of High Cholesterol, UTIs, Rheumatoid arthritis, Anxiety disorder, Panic attacks who presents via EMS with report of altered mental status with dysuria for the past week per her . Patient with expressive aphasia upon arrival noted by ED physician with NIHSS 8, underwent CT head and CT head/cervical spine without acute process. ASA was administrated. Sepsis IV bolus and empiric antibiotic initiated. Neurology consultation requested for aphasia, but no symptoms of aphasia at the time of neuro exam. Past Medical History Cardiovascular: Hyperlipidemia Pulmonary: No pertinent hx GI: No pertinent hx Heme/Onc: No pertinent hx Hepatobiliary: No pertinent hx Psych: Anxiety, Panic Rheumatologic: Rheumatoid arthritis Infectious disease: No pertinent hx ENT: No pertinent hx Renal/: No pertinent hx Endocrine: No pertinent hx Dermatology: No pertinent hx Family History Reviewed. She cannot recall Social History Smoke: No ALCOHOL: none Drugs: None Allergies Coded Allergies: atorvastatin (Unverified Allergy, Intermediate, 12/04/14) codeine (Unverified Allergy, Intermediate, 12/04/14) doxycycline (Unverified Allergy, Intermediate, 12/04/14) levofloxacin (Unverified Allergy, Intermediate, 12/05/14) meperidine (Unverified Allergy, Intermediate, 12/04/14) nitrofurantoin (Unverified Allergy, Intermediate, 12/04/14) solifenacin (Unverified Allergy, Intermediate, 12/04/14) tetracycline (Unverified Allergy, Intermediate, 12/04/14) tramadol (Unverified Allergy, Intermediate, 12/05/14) MEDICATIONS: Refer to MAR REVIEW OF SYSTEMS: Constitutional: No malnutrition, weight loss, cachexia. Head: No traumatic brain or head injury. Skin: No edema, or rash. Ear: No infection. Eyes: No vision loss or color blindness. Nose: No bleeding or purulent discharges. Hearing: No hearing decrease. Neck: No injury. Breast: No history of cancer, masses,or discharges. Cardiac: HTN, HLD. Pulmonary: No COPD. GI: No GI ulcer, GI bleeding. Urinary/genital: UTI. Endocrinologic: No cousin face, craniofacial dysmorphism, polydactyly. Skeletomuscular: No muscular atrophy, deformity. Neurological: see HP. Psychiatric: Denies drug use/abuse. Otherwise, not [id number] review of systems. PHYSICAL EXAMINATION: General appearance is in subacute distress. HEENT: Normocephalic and nontraumatic. Eyes, nose, ears, and throat are unremarkable. Neck is supple. No lymphadenopathy. No crepitus. Cardiovascular: S1, S2, regular rate and rhythm. Pulmonary: Clear to auscultation bilaterally. Abdomen: Bowel sounds are positive. Extremities: No rash, lesions, or edema. No restriction of range of motion NEUROLOGICAL EXAMINATION: Alert Partially oriented to time, place and person. PERRL. EOMI. CN: no focal findings. Muscle tone: within normal. Muscle strength: 5 DTR: 2 Plantar reflex: Flexor response bilaterally Gait: not examined in bed. Sensory exam: no abnormal findings. No cerebellar signs elicited. F-T-N test fine. Current Medications Current Medications Current Medications Sodium Chloride 1,000 ml @ 1,000 mls/hr 1X ONCE IV Last administered on 08/08/19at 21:24; Start 08/08/19 at 20:45; Stop 08/08/19 at 21:44; Status DC Labetalol HCl (Normodyne Iv Push) 10 mg 1X ONCE IVP Last administered on 08/08/19at 23:24; Start 08/08/19 at 23:00; Stop 08/08/19 at 23:01; Status DC Piperacillin Sod/ Tazobactam Sod 4.5 gm/Sodium Chloride 100 ml @ 200 mls/hr 1X ONCE IV Last administered on 08/08/19at 23:24; Start 08/08/19 at 23:00; Stop 08/08/19 at 23:29; Status DC Sodium Chloride 1,000 ml @ 1,000 mls/hr 1X ONCE IV Last administered on 08/08/19at 23:00; Start 08/08/19 at 23:00; Stop 08/08/19 at 23:59; Status DC Sodium Chloride 500 ml @ 500 mls/hr 1X ONCE IV Last administered on 08/08/19 23:24; Start 08/09/19 at 00:00; Stop 08/09/19 at 00:59; Status DC Aspirin (Aspirin Rectal Supp) 300 mg 1X ONCE DC Last administered on 08/08/19at 23:00; Start 08/08/19 at 23:00; Stop 08/08/19 at 23:01; Status DC Lorazepam (Ativan Inj) 0.5 mg 1X ONCE IVP Last administered on 08/09/19at 00:38; Start 08/09/19 at 00:30; Stop 08/09/19 at 00:31; Status DC Ondansetron HCl (Zofran) 4 mg PRN Q8HRS PRN IV NAUSEA/VOMITING 1ST CHOICE Last administered on 08/09/19at 00:38; Start 08/09/19 at 00:00; Stop 08/09/19 at 08:18; Status DC Ondansetron HCl (Zofran) 4 mg PRN Q4HRS PRN IV NAUSEA/VOMITING 1ST CHOICE; Start 08/09/19 at 08:15 Enoxaparin Sodium (Lovenox 40mg Syringe) 40 mg Q24H SQ Last administered on 08/09/19at 09:03; Start 08/09/19 at 09:00 Ceftriaxone Sodium (Rocephin) 1 gm Q24H IVP Last administered on 08/09/19at 09:04; Start 08/09/19 at 09:00 Acetaminophen (Tylenol) 650 mg PRN Q6HRS PRN PO pain/fever; Start 08/09/19 at 08:15 Aspirin (Ecotrin) 81 mg DAILY PO Last administered on 08/09/19at 12:02; Start 08/09/19 at 09:00 Docusate Sodium (Colace) 20,000 mg BID PO ; Start 08/09/19 at 09:00; Stop 07/12 at 08:19; Status DC Polyethylene Glycol (miraLAX PACKET) 17 gm DAILY PRN PO CONSTIPATION; Start 08/09/19 at 08:15 Calcium Carbonate/ Glycine (Tums) 750 mg DAILY PO Last administered on 08/09/19at 12:02; Start 08/09/19 at 09:00 Vitamin D (Vitamin D3) 2,000 unit DAILY PO Last administered on 08/09/19at 09:00; Start 08/09/19 at 09:00 Non-Formulary Medication (Tofacitinib Citrate (Xeljanz Xr)) 11 mg DAILY PO Last administered on 08/09/19at 12:29; Start 08/09/19 at 13:00 Docusate Sodium (Colace) 200 mg BID PO Last administered on 08/09/19at 12:01; Start 08/09/19 at 09:00 Potassium Chloride/Water 100 ml @ 100 mls/hr Q1H IV Last administered on 08/09/19 16:42; Start 08/09/19 at 14:00; Stop 08/09/19 at 17:59 Potassium Chloride (Klor-Con) 40 meq 1X ONCE PO Last administered on 08/09/19at 13:57; Start 08/09/19 at 13:15; Stop 08/09/19 at 13:19; Status DC Active Scripts Active Reported Xeljanz Xr (Tofacitinib Citrate) 11 Mg Tab.er.24h 11 Mg PO DAILY 30 Days Miralax (Polyethylene Glycol 3350) 17 Gm Powd.pack 1 Packet PO DAILY PRN Vitamin D (Cholecalciferol (Vitamin D3)) 2,000 Unit Capsule 1 Cap PO DAILY Prednisolone (Prednisolone, Micronized) 5 Gm Powder 12.5 Mg MC DAILY Colace (Docusate Sodium) 100 Mg Capsule 200 Cap PO BID Tums Ultra (Calcium Carbonate) 400 Mg Tab.chew 750 Mg PO DAILY Aspir 81 (Aspirin) 81 Mg Tablet.dr 81 Tab PO DAILY Sulfasalazine Dr (Sulfasalazine) 500 Mg Tablet. 1,000 Mg PO BID Uribel Capsule (Mth/Me Blue/Sod Phos/Phen/Hyos) 1 Each Capsule 1 Cap PO BID Allergies Allergies: Allergies Coded Allergies Type Severity Reaction Last Updated Verified atorvastatin Allergy Intermediate 12/04/14 No codeine Allergy Intermediate 12/04/14 No doxycycline Allergy Intermediate 12/04/14 No levofloxacin Allergy Intermediate 12/05/14 No meperidine Allergy Intermediate 12/04/14 No nitrofurantoin Allergy Intermediate 12/04/14 No solifenacin Allergy Intermediate 12/04/14 No tetracycline Allergy Intermediate 12/04/14 No tramadol Allergy Intermediate 12/05/14 No ROS Review of System The patient denies any associated fevers, chills, headache, ear pain, rhinorrhea, sore throat, stiff neck, productive cough, chest pain, shortness of breath, back or flank pain, abdominal pain, nausea, vomiting, diarrhea, constipation, dysuria, rash, numbness, weakness, tingling, incontinence, difficulty ambulating, or diaphoresis. Physical Exam Physical Exam General: Well developed, well nourished, no acute distress, well appearing HEENT: Pupils equally round and reactive to light, EOMI, no discharge, normal conjunctiva Neck: Supple, no nuchal rigidity, no JVD, trachea midline, no tenderness Cardiac: RRR, no murmurs, no gallops, no rubs Chest/Lungs: CTAB, no wheeze, no rhonchi, no crackles Abdomen: soft, non-distended, no guarding, no peritoneal signs, non-tender Back: No tenderness Extremities: no edema, pulses intact, non-tender,capillary refill <3 sec bilateral upper and lower extremities, Neuro: Alert and oriented x 4, no focal deficits, normal speech Vitals Vitals: Vital Signs Date Time Temp Pulse Resp B/P (MAP) Pulse Ox O2 Delivery O2 Flow Rate FiO2 08/09/19 15:09 97.6 80 18 136/68 (90) 96 Room Air 97.6 Labs Labs Laboratory Tests Test 08/08/19 21:05 08/08/19 21:11 08/08/19 22:51 08/09/19 01:00 White Blood Count 12.1 x10^3/uL (4.0-11.0) Red Blood Count 3.85 x10^6/uL (3.50-5.40) Hemoglobin 11.9 g/dL (12.0-15.5) Hematocrit 35.1 % (36.0-47.0) Mean Corpuscular Volume 91 fL (79-100) Mean Corpuscular Hemoglobin 31 pg (25-35) Mean Corpuscular Hemoglobin Concent 34 g/dL (31-37) Red Cell Distribution Width 13.6 % (11.5-14.5) Platelet Count 283 x10^3/uL (140-400) Neutrophils (%) (Auto) 82 % (31-73) Lymphocytes (%) (Auto) 8 % (24-48) Monocytes (%) (Auto) 9 % (0-9) Eosinophils (%) (Auto) 0 % (0-3) Basophils (%) (Auto) 0 % (0-3) Neutrophils # (Auto) 9.9 x10^3/uL (1.8-7.7) Lymphocytes # (Auto) 1.0 x10^3/uL (1.0-4.8) Monocytes # (Auto) 1.1 x10^3/uL (0.0-1.1) Eosinophils # (Auto) 0.0 x10^3/uL (0.0-0.7) Basophils # (Auto) 0.0 x10^3/uL (0.0-0.2) Prothrombin Time 12.7 SEC (11.7-14.0) Prothromb Time International Ratio 1.0 (0.8-1.1) Activated Partial Thromboplast Time 26 SEC (24-38) Sodium Level 136 mmol/L (136-145) Potassium Level 3.5 mmol/L (3.5-5.1) Chloride Level 100 mmol/L (98-107) Carbon Dioxide Level 21 mmol/L (21-32) Anion Gap 15 (6-14) Blood Urea Nitrogen 15 mg/dL (7-20) Creatinine 0.8 mg/dL (0.6-1.0) Estimated GFR (Cockcroft-Gault) 69.7 BUN/Creatinine Ratio 19 (6-20) Glucose Level 144 mg/dL (70-99) Lactic Acid Level 3.2 mmol/L (0.4-2.0) 2.0 mmol/L (0.4-2.0) Calcium Level 9.5 mg/dL (8.5-10.1) Magnesium Level 2.1 mg/dL (1.8-2.4) Total Bilirubin 0.3 mg/dL (0.2-1.0) Aspartate Amino Transf (AST/SGOT) 22 U/L (15-37) Alanine Aminotransferase (ALT/SGPT) 23 U/L (14-59) Alkaline Phosphatase 68 U/L (46-116) Ammonia 11 mcmol/L (11-34) Creatine Kinase 104 U/L (26-192) Creatine Kinase MB (Mass) 1.3 ng/mL (0.0-3.6) Creatine Kinase MB Relative Index 1.3 % (0-4) Troponin I Quantitative < 0.017 ng/mL (0.000-0.055) Total Protein 7.3 g/dL (6.4-8.2) Albumin 3.9 g/dL (3.4-5.0) Albumin/Globulin Ratio 1.1 (1.0-1.7) Glucose (Fingerstick) 143 mg/dL (70-99) Urine Collection Type U cath Urine Color Yellow Urine Clarity Clear Urine pH 7.5 (<5.0-8.0) Urine Specific [place] 1.010 (1.000-1.030) Urine Protein Negative mg/dL (NEG-TRACE) Urine Glucose (UA) Negative mg/dL (NEG) Urine Ketones (Stick) Negative mg/dL (NEG) Urine Blood Negative (NEG) Urine Nitrite Negative (NEG) Urine Bilirubin Negative (NEG) Urine Urobilinogen Dipstick 0.2 mg/dL (0.2 mg/dL) Urine Leukocyte Esterase Moderate (NEG) Urine RBC Occ /HPF (0-2) Urine WBC 20-40 /HPF (0-4) Urine Bacteria 0 /HPF (0-FEW) Test 08/09/19 02:38 08/09/19 10:30 08/09/19 15:38 Troponin I Quantitative 0.110 ng/mL (0.000-0.055) 0.729 ng/mL (0.000-0.055) 0.658 ng/mL (0.000-0.055) White Blood Count 9.3 x10^3/uL (4.0-11.0) Red Blood Count 3.61 x10^6/uL (3.50-5.40) Hemoglobin 11.3 g/dL (12.0-15.5) Hematocrit 33.2 % (36.0-47.0) Mean Corpuscular Volume 92 fL (79-100) Mean Corpuscular Hemoglobin 31 pg (25-35) Mean Corpuscular Hemoglobin Concent 34 g/dL (31-37) Red Cell Distribution Width 13.5 % (11.5-14.5) Platelet Count 256 x10^3/uL (140-400) Neutrophils (%) (Auto) 78 % (31-73) Lymphocytes (%) (Auto) 10 % (24-48) Monocytes (%) (Auto) 12 % (0-9) Eosinophils (%) (Auto) 0 % (0-3) Basophils (%) (Auto) 0 % (0-3) Neutrophils # (Auto) 7.3 x10^3/uL (1.8-7.7) Lymphocytes # (Auto) 0.9 x10^3/uL (1.0-4.8) Monocytes # (Auto) 1.1 x10^3/uL (0.0-1.1) Eosinophils # (Auto) 0.0 x10^3/uL (0.0-0.7) Basophils # (Auto) 0.0 x10^3/uL (0.0-0.2) Sodium Level 137 mmol/L (136-145) Potassium Level 2.6 mmol/L (3.5-5.1) Chloride Level 103 mmol/L (98-107) Carbon Dioxide Level 25 mmol/L (21-32) Anion Gap 9 (6-14) Blood Urea Nitrogen 12 mg/dL (7-20) Creatinine 0.7 mg/dL (0.6-1.0) Estimated GFR (Cockcroft-Gault) 81.4 Glucose Level 109 mg/dL (70-99) Calcium Level 8.0 mg/dL (8.5-10.1) Triglycerides Level 23 mg/dL (0-150) Cholesterol Level 189 mg/dL (0-200) LDL Cholesterol, Calculated 113 mg/dL (0-100) VLDL Cholesterol, Calculated 5 mg/dL (0-40) Non-HDL Cholesterol Calculated 118 mg/dL (0-129) HDL Cholesterol 71 mg/dL (40-60) Cholesterol/HDL Ratio 2.7 Thyroid Stimulating Hormone (TSH) 1.924 uIU/mL (0.358-3.74) Laboratory Tests Test 08/08/19 21:05 08/08/19 21:11 08/08/19 22:51 08/09/19 01:00 White Blood Count 12.1 x10^3/uL (4.0-11.0) Red Blood Count 3.85 x10^6/uL (3.50-5.40) Hemoglobin 11.9 g/dL (12.0-15.5) Hematocrit 35.1 % (36.0-47.0) Mean Corpuscular Volume 91 fL (79-100) Mean Corpuscular Hemoglobin 31 pg (25-35) Mean Corpuscular Hemoglobin Concent 34 g/dL (31-37) Red Cell Distribution Width 13.6 % (11.5-14.5) Platelet Count 283 x10^3/uL (140-400) Neutrophils (%) (Auto) 82 % (31-73) Lymphocytes (%) (Auto) 8 % (24-48) Monocytes (%) (Auto) 9 % (0-9) Eosinophils (%) (Auto) 0 % (0-3) Basophils (%) (Auto) 0 % (0-3) Neutrophils # (Auto) 9.9 x10^3/uL (1.8-7.7) Lymphocytes # (Auto) 1.0 x10^3/uL (1.0-4.8) Monocytes # (Auto) 1.1 x10^3/uL (0.0-1.1) Eosinophils # (Auto) 0.0 x10^3/uL (0.0-0.7) Basophils # (Auto) 0.0 x10^3/uL (0.0-0.2) Prothrombin Time 12.7 SEC (11.7-14.0) Prothromb Time International Ratio 1.0 (0.8-1.1) Activated Partial Thromboplast Time 26 SEC (24-38) Sodium Level 136 mmol/L (136-145) Potassium Level 3.5 mmol/L (3.5-5.1) Chloride Level 100 mmol/L (98-107) Carbon Dioxide Level 21 mmol/L (21-32) Anion Gap 15 (6-14) Blood Urea Nitrogen 15 mg/dL (7-20) Creatinine 0.8 mg/dL (0.6-1.0) Estimated GFR (Cockcroft-Gault) 69.7 BUN/Creatinine Ratio 19 (6-20) Glucose Level 144 mg/dL (70-99) Lactic Acid Level 3.2 mmol/L (0.4-2.0) 2.0 mmol/L (0.4-2.0) Calcium Level 9.5 mg/dL (8.5-10.1) Magnesium Level 2.1 mg/dL (1.8-2.4) Total Bilirubin 0.3 mg/dL (0.2-1.0) Aspartate Amino Transf (AST/SGOT) 22 U/L (15-37) Alanine Aminotransferase (ALT/SGPT) 23 U/L (14-59) Alkaline Phosphatase 68 U/L (46-116) Ammonia 11 mcmol/L (11-34) Creatine Kinase 104 U/L (26-192) Creatine Kinase MB (Mass) 1.3 ng/mL (0.0-3.6) Creatine Kinase MB Relative Index 1.3 % (0-4) Troponin I Quantitative < 0.017 ng/mL (0.000-0.055) Total Protein 7.3 g/dL (6.4-8.2) Albumin 3.9 g/dL (3.4-5.0) Albumin/Globulin Ratio 1.1 (1.0-1.7) Glucose (Fingerstick) 143 mg/dL (70-99) Urine Collection Type U cath Urine Color Yellow Urine Clarity Clear Urine pH 7.5 (<5.0-8.0) Urine Specific [place] 1.010 (1.000-1.030) Urine Protein Negative mg/dL (NEG-TRACE) Urine Glucose (UA) Negative mg/dL (NEG) Urine Ketones (Stick) Negative mg/dL (NEG) Urine Blood Negative (NEG) Urine Nitrite Negative (NEG) Urine Bilirubin Negative (NEG) Urine Urobilinogen Dipstick 0.2 mg/dL (0.2 mg/dL) Urine Leukocyte Esterase Moderate (NEG) Urine RBC Occ /HPF (0-2) Urine WBC 20-40 /HPF (0-4) Urine Bacteria 0 /HPF (0-FEW) Test 08/09/19 02:38 08/09/19 10:30 08/09/19 15:38 Troponin I Quantitative 0.110 ng/mL (0.000-0.055) 0.729 ng/mL (0.000-0.055) 0.658 ng/mL (0.000-0.055) White Blood Count 9.3 x10^3/uL (4.0-11.0) Red Blood Count 3.61 x10^6/uL (3.50-5.40) Hemoglobin 11.3 g/dL (12.0-15.5) Hematocrit 33.2 % (36.0-47.0) Mean Corpuscular Volume 92 fL (79-100) Mean Corpuscular Hemoglobin 31 pg (25-35) Mean Corpuscular Hemoglobin Concent 34 g/dL (31-37) Red Cell Distribution Width 13.5 % (11.5-14.5) Platelet Count 256 x10^3/uL (140-400) Neutrophils (%) (Auto) 78 % (31-73) Lymphocytes (%) (Auto) 10 % (24-48) Monocytes (%) (Auto) 12 % (0-9) Eosinophils (%) (Auto) 0 % (0-3) Basophils (%) (Auto) 0 % (0-3) Neutrophils # (Auto) 7.3 x10^3/uL (1.8-7.7) Lymphocytes # (Auto) 0.9 x10^3/uL (1.0-4.8) Monocytes # (Auto) 1.1 x10^3/uL (0.0-1.1) Eosinophils # (Auto) 0.0 x10^3/uL (0.0-0.7) Basophils # (Auto) 0.0 x10^3/uL (0.0-0.2) Sodium Level 137 mmol/L (136-145) Potassium Level 2.6 mmol/L (3.5-5.1) Chloride Level 103 mmol/L (98-107) Carbon Dioxide Level 25 mmol/L (21-32) Anion Gap 9 (6-14) Blood Urea Nitrogen 12 mg/dL (7-20) Creatinine 0.7 mg/dL (0.6-1.0) Estimated GFR (Cockcroft-Gault) 81.4 Glucose Level 109 mg/dL (70-99) Calcium Level 8.0 mg/dL (8.5-10.1) Triglycerides Level 23 mg/dL (0-150) Cholesterol Level 189 mg/dL (0-200) LDL Cholesterol, Calculated 113 mg/dL (0-100) VLDL Cholesterol, Calculated 5 mg/dL (0-40) Non-HDL Cholesterol Calculated 118 mg/dL (0-129) HDL Cholesterol 71 mg/dL (40-60) Cholesterol/HDL Ratio 2.7 Thyroid Stimulating Hormone (TSH) 1.924 uIU/mL (0.358-3.74) STEFAN NUÑEZ MD Aug 09, 2019 17:10
[2019-08-09 19:51] VITALS: BP 133/50
--- NOTE | 2019-08-09 20:30 | RAD ---
Carotid Doppler dated 08/09/2019. Comparison none. Clinical Indication: Dizziness and lightheadedness. Weakness and numbness.. Findings: Grayscale, color flow and spectral waveform analysis was performed. Minimal luminal irregularity suggesting mild plaquing. No focal stenosis. The waveforms are within normal limits. Flow within the bilateral vertebral arteries is antegrade. Velocity measurements are as follows (centimeters per second ) Peak systolic velocity right left ICA 109 85 CCA 112 93 ECA 167 102 ICA/CCA ratio 1.0 0.9 Impression: No evidence of hemodynamically significant carotid stenosis. Stenosis calculations for carotid ultrasound studies are derived from validated velocity criteria which are known to correlate with the NASCET methodology. Electronically signed by: Shiv Tucker MD (08/09/2019 8:27 PM) [id number]
[2019-08-09 23:59] VITALS: BP_SYST 118
[2019-08-10] VITALS (7 sets, daily range): BP systolic 119–170; BP diastolic 54–79
[2019-08-10 05:59] LABS: CALCIUM 8.1 mg/dL (8.5-10.1); CREATININE 0.7 mg/dL (0.6-1.0); GFR 81.4; MAGNESIUM 1.8 mg/dL (1.8-2.4); POTASSIUM 3.9 mmol/L (3.5-5.1)
[2019-08-10] MEDS: TOFACITINIB CITRATE 11 MG PO SCH (08:28)
[2019-08-10] MEDS: CHOLECALCIFEROL (VITAMIN D3) 1,000 UNIT TABLET PO SCH (08:28)
[2019-08-10] MEDS: ASPIRIN ENTERIC COATED 81 MG TABLET.DR. PO SCH (08:28)
[2019-08-10] MEDS: DOCUSATE SODIUM 100 MG CAPSULE. PO SCH ×2 (08:29→20:09)
[2019-08-10] MEDS: ENOXAPARIN 40 MG/0.4 ML SYRINGE. SQ SCH (08:29)
[2019-08-10] MEDS: CALCIUM CARBONATE 500 MG TAB.CHEW PO SCH (08:29)
[2019-08-10] MEDS: cefTRIAXone IV Push 1 GM VIAL. IVP SCH (08:29)
--- NOTE | 2019-08-10 08:34 | PDOC ---
PROGRESS NOTES Chief Complaint Chief Complaint A/P: Acute encephalopathy - likely toxic from UTI, will cont to treat Sepsis - meets SIRS criteria with abnormal UA, end-organ dysfunction with confusion Expressive aphasia - no CVA noted on CT. Resolved Hypokalemia - replaced Hypomagnesemia - replaced Urinary tract infection Elevated troponin - trended negative Hypertension High Cholesterol Frequent UTIs - may need outpatient suppressive treatment Rheumatoid arthritis - on xeljanz Anxiety disorder with Panic attacks - not on meds currently FEN - ADAT PPX - Lovenox FULL CODE Dispo - inpatient History of Present Illness History of Present Illness Ms Geiger is a 78yo F w/ PMHx High Cholesterol, UTIs, Rheumatoid arthritis, Anxiety disorder, Panic attacks who presents via EMS with report of altered mental status with dysuria for the past week per . Afebrile. Patient with expressive aphasia upon arrival noted by ED physician with NIHSS 8, underwent CT head and CT head/cervical spine without acute process. ASA given. Patient tachycardic and elevated WBC 12.1. Lactic acid within 3. UA with positive leukocyte esterase. Sepsis IV bolus and empiric antibiotic initiated. Chest x- ray clear. EKG stable. Initial troponin within normal limits. Repeat troponin 0.110. Repeat lactic acid improved. Admitted for further treatment. 08/08: Seen by cardiology and neurology in consultation. Echo revealed normal LV systolic function and RVSP 27mmHg Feeling improved. Troponin peaked overnight. Seen by CURRENCY EXAMINER, ok for diet. BP elevated. No CP or SOB. Getting around ok with PT. She wishes to have her Uribel supplement. Vitals Vitals Vital Signs Date Time Temp Pulse Resp B/P (MAP) Pulse Ox O2 Delivery O2 Flow Rate FiO2 08/10/19 07:23 98.9 75 18 139/79 (99) 96 Room Air 98.9 Physical Exam General: Alert, Cooperative, Other (expressive aphasia ) Heart: Regular rate, Normal S1, Normal S2 Abdomen: Soft Extremities: No edema, Normal pulses Skin: No significant lesion Labs LABS Laboratory Tests Test 08/09/19 10:30 08/09/19 15:38 08/10/19 04:28 White Blood Count 9.3 x10^3/uL (4.0-11.0) Red Blood Count 3.61 x10^6/uL (3.50-5.40) Hemoglobin 11.3 g/dL (12.0-15.5) Hematocrit 33.2 % (36.0-47.0) Mean Corpuscular Volume 92 fL (79-100) Mean Corpuscular Hemoglobin 31 pg (25-35) Mean Corpuscular Hemoglobin Concent 34 g/dL (31-37) Red Cell Distribution Width 13.5 % (11.5-14.5) Platelet Count 256 x10^3/uL (140-400) Neutrophils (%) (Auto) 78 % (31-73) Lymphocytes (%) (Auto) 10 % (24-48) Monocytes (%) (Auto) 12 % (0-9) Eosinophils (%) (Auto) 0 % (0-3) Basophils (%) (Auto) 0 % (0-3) Neutrophils # (Auto) 7.3 x10^3/uL (1.8-7.7) Lymphocytes # (Auto) 0.9 x10^3/uL (1.0-4.8) Monocytes # (Auto) 1.1 x10^3/uL (0.0-1.1) Eosinophils # (Auto) 0.0 x10^3/uL (0.0-0.7) Basophils # (Auto) 0.0 x10^3/uL (0.0-0.2) Sodium Level 137 mmol/L (136-145) 142 mmol/L (136-145) Potassium Level 2.6 mmol/L (3.5-5.1) 3.9 mmol/L (3.5-5.1) Chloride Level 103 mmol/L (98-107) 108 mmol/L (98-107) Carbon Dioxide Level 25 mmol/L (21-32) 24 mmol/L (21-32) Anion Gap 9 (6-14) 10 (6-14) Blood Urea Nitrogen 12 mg/dL (7-20) 15 mg/dL (7-20) Creatinine 0.7 mg/dL (0.6-1.0) 0.7 mg/dL (0.6-1.0) Estimated GFR (Cockcroft-Gault) 81.4 81.4 Glucose Level 109 mg/dL (70-99) 94 mg/dL (70-99) Calcium Level 8.0 mg/dL (8.5-10.1) 8.1 mg/dL (8.5-10.1) Troponin I Quantitative 0.729 ng/mL (0.000-0.055) 0.658 ng/mL (0.000-0.055) Triglycerides Level 23 mg/dL (0-150) Cholesterol Level 189 mg/dL (0-200) LDL Cholesterol, Calculated 113 mg/dL (0-100) VLDL Cholesterol, Calculated 5 mg/dL (0-40) Non-HDL Cholesterol Calculated 118 mg/dL (0-129) HDL Cholesterol 71 mg/dL (40-60) Cholesterol/HDL Ratio 2.7 Thyroid Stimulating Hormone (TSH) 1.924 uIU/mL (0.358-3.74) Magnesium Level 1.7 mg/dL (1.8-2.4) 1.8 mg/dL (1.8-2.4) Assessment and Plan Assessmemt and Plan Problems Medical Problems: (1) Altered mental status Status: Acute (2) Altered mental status Status: Acute (3) Elevated troponin Status: Acute (4) Elevated troponin Status: Acute (5) Expressive aphasia Status: Acute (6) Expressive aphasia Status: Acute (7) Hypertension Status: Acute (8) Severe sepsis Status: Acute (9) Severe sepsis Status: Acute (10) UTI (urinary tract infection) Status: Acute (11) UTI (urinary tract infection) Status: Acute Comment Review of Relevant I have reviewed the following items ebony (where applicable) has been applied. Labs Laboratory Tests Test 08/08/19 21:05 08/08/19 21:11 08/08/19 22:51 08/09/19 01:00 White Blood Count 12.1 x10^3/uL (4.0-11.0) Red Blood Count 3.85 x10^6/uL (3.50-5.40) Hemoglobin 11.9 g/dL (12.0-15.5) Hematocrit 35.1 % (36.0-47.0) Mean Corpuscular Volume 91 fL (79-100) Mean Corpuscular Hemoglobin 31 pg (25-35) Mean Corpuscular Hemoglobin Concent 34 g/dL (31-37) Red Cell Distribution Width 13.6 % (11.5-14.5) Platelet Count 283 x10^3/uL (140-400) Neutrophils (%) (Auto) 82 % (31-73) Lymphocytes (%) (Auto) 8 % (24-48) Monocytes (%) (Auto) 9 % (0-9) Eosinophils (%) (Auto) 0 % (0-3) Basophils (%) (Auto) 0 % (0-3) Neutrophils # (Auto) 9.9 x10^3/uL (1.8-7.7) Lymphocytes # (Auto) 1.0 x10^3/uL (1.0-4.8) Monocytes # (Auto) 1.1 x10^3/uL (0.0-1.1) Eosinophils # (Auto) 0.0 x10^3/uL (0.0-0.7) Basophils # (Auto) 0.0 x10^3/uL (0.0-0.2) Prothrombin Time 12.7 SEC (11.7-14.0) Prothromb Time International Ratio 1.0 (0.8-1.1) Activated Partial Thromboplast Time 26 SEC (24-38) Sodium Level 136 mmol/L (136-145) Potassium Level 3.5 mmol/L (3.5-5.1) Chloride Level 100 mmol/L (98-107) Carbon Dioxide Level 21 mmol/L (21-32) Anion Gap 15 (6-14) Blood Urea Nitrogen 15 mg/dL (7-20) Creatinine 0.8 mg/dL (0.6-1.0) Estimated GFR (Cockcroft-Gault) 69.7 BUN/Creatinine Ratio 19 (6-20) Glucose Level 144 mg/dL (70-99) Lactic Acid Level 3.2 mmol/L (0.4-2.0) 2.0 mmol/L (0.4-2.0) Calcium Level 9.5 mg/dL (8.5-10.1) Magnesium Level 2.1 mg/dL (1.8-2.4) Total Bilirubin 0.3 mg/dL (0.2-1.0) Aspartate Amino Transf (AST/SGOT) 22 U/L (15-37) Alanine Aminotransferase (ALT/SGPT) 23 U/L (14-59) Alkaline Phosphatase 68 U/L (46-116) Ammonia 11 mcmol/L (11-34) Creatine Kinase 104 U/L (26-192) Creatine Kinase MB (Mass) 1.3 ng/mL (0.0-3.6) Creatine Kinase MB Relative Index 1.3 % (0-4) Troponin I Quantitative < 0.017 ng/mL (0.000-0.055) Total Protein 7.3 g/dL (6.4-8.2) Albumin 3.9 g/dL (3.4-5.0) Albumin/Globulin Ratio 1.1 (1.0-1.7) Glucose (Fingerstick) 143 mg/dL (70-99) Urine Collection Type U cath Urine Color Yellow Urine Clarity Clear Urine pH 7.5 (<5.0-8.0) Urine Specific [place] 1.010 (1.000-1.030) Urine Protein Negative mg/dL (NEG-TRACE) Urine Glucose (UA) Negative mg/dL (NEG) Urine Ketones (Stick) Negative mg/dL (NEG) Urine Blood Negative (NEG) Urine Nitrite Negative (NEG) Urine Bilirubin Negative (NEG) Urine Urobilinogen Dipstick 0.2 mg/dL (0.2 mg/dL) Urine Leukocyte Esterase Moderate (NEG) Urine RBC Occ /HPF (0-2) Urine WBC 20-40 /HPF (0-4) Urine Bacteria 0 /HPF (0-FEW) Test 08/09/19 02:38 08/09/19 10:30 08/09/19 15:38 08/10/19 04:28 Troponin I Quantitative 0.110 ng/mL (0.000-0.055) 0.729 ng/mL (0.000-0.055) 0.658 ng/mL (0.000-0.055) White Blood Count 9.3 x10^3/uL (4.0-11.0) Red Blood Count 3.61 x10^6/uL (3.50-5.40) Hemoglobin 11.3 g/dL (12.0-15.5) Hematocrit 33.2 % (36.0-47.0) Mean Corpuscular Volume 92 fL (79-100) Mean Corpuscular Hemoglobin 31 pg (25-35) Mean Corpuscular Hemoglobin Concent 34 g/dL (31-37) Red Cell Distribution Width 13.5 % (11.5-14.5) Platelet Count 256 x10^3/uL (140-400) Neutrophils (%) (Auto) 78 % (31-73) Lymphocytes (%) (Auto) 10 % (24-48) Monocytes (%) (Auto) 12 % (0-9) Eosinophils (%) (Auto) 0 % (0-3) Basophils (%) (Auto) 0 % (0-3) Neutrophils # (Auto) 7.3 x10^3/uL (1.8-7.7) Lymphocytes # (Auto) 0.9 x10^3/uL (1.0-4.8) Monocytes # (Auto) 1.1 x10^3/uL (0.0-1.1) Eosinophils # (Auto) 0.0 x10^3/uL (0.0-0.7) Basophils # (Auto) 0.0 x10^3/uL (0.0-0.2) Sodium Level 137 mmol/L (136-145) 142 mmol/L (136-145) Potassium Level 2.6 mmol/L (3.5-5.1) 3.9 mmol/L (3.5-5.1) Chloride Level 103 mmol/L (98-107) 108 mmol/L (98-107) Carbon Dioxide Level 25 mmol/L (21-32) 24 mmol/L (21-32) Anion Gap 9 (6-14) 10 (6-14) Blood Urea Nitrogen 12 mg/dL (7-20) 15 mg/dL (7-20) Creatinine 0.7 mg/dL (0.6-1.0) 0.7 mg/dL (0.6-1.0) Estimated GFR (Cockcroft-Gault) 81.4 81.4 Glucose Level 109 mg/dL (70-99) 94 mg/dL (70-99) Calcium Level 8.0 mg/dL (8.5-10.1) 8.1 mg/dL (8.5-10.1) Triglycerides Level 23 mg/dL (0-150) Cholesterol Level 189 mg/dL (0-200) LDL Cholesterol, Calculated 113 mg/dL (0-100) VLDL Cholesterol, Calculated 5 mg/dL (0-40) Non-HDL Cholesterol Calculated 118 mg/dL (0-129) HDL Cholesterol 71 mg/dL (40-60) Cholesterol/HDL Ratio 2.7 Thyroid Stimulating Hormone (TSH) 1.924 uIU/mL (0.358-3.74) Magnesium Level 1.7 mg/dL (1.8-2.4) 1.8 mg/dL (1.8-2.4) Laboratory Tests Test 08/09/19 10:30 08/09/19 15:38 08/10/19 04:28 White Blood Count 9.3 x10^3/uL (4.0-11.0) Red Blood Count 3.61 x10^6/uL (3.50-5.40) Hemoglobin 11.3 g/dL (12.0-15.5) Hematocrit 33.2 % (36.0-47.0) Mean Corpuscular Volume 92 fL (79-100) Mean Corpuscular Hemoglobin 31 pg (25-35) Mean Corpuscular Hemoglobin Concent 34 g/dL (31-37) Red Cell Distribution Width 13.5 % (11.5-14.5) Platelet Count 256 x10^3/uL (140-400) Neutrophils (%) (Auto) 78 % (31-73) Lymphocytes (%) (Auto) 10 % (24-48) Monocytes (%) (Auto) 12 % (0-9) Eosinophils (%) (Auto) 0 % (0-3) Basophils (%) (Auto) 0 % (0-3) Neutrophils # (Auto) 7.3 x10^3/uL (1.8-7.7) Lymphocytes # (Auto) 0.9 x10^3/uL (1.0-4.8) Monocytes # (Auto) 1.1 x10^3/uL (0.0-1.1) Eosinophils # (Auto) 0.0 x10^3/uL (0.0-0.7) Basophils # (Auto) 0.0 x10^3/uL (0.0-0.2) Sodium Level 137 mmol/L (136-145) 142 mmol/L (136-145) Potassium Level 2.6 mmol/L (3.5-5.1) 3.9 mmol/L (3.5-5.1) Chloride Level 103 mmol/L (98-107) 108 mmol/L (98-107) Carbon Dioxide Level 25 mmol/L (21-32) 24 mmol/L (21-32) Anion Gap 9 (6-14) 10 (6-14) Blood Urea Nitrogen 12 mg/dL (7-20) 15 mg/dL (7-20) Creatinine 0.7 mg/dL (0.6-1.0) 0.7 mg/dL (0.6-1.0) Estimated GFR (Cockcroft-Gault) 81.4 81.4 Glucose Level 109 mg/dL (70-99) 94 mg/dL (70-99) Calcium Level 8.0 mg/dL (8.5-10.1) 8.1 mg/dL (8.5-10.1) Troponin I Quantitative 0.729 ng/mL (0.000-0.055) 0.658 ng/mL (0.000-0.055) Triglycerides Level 23 mg/dL (0-150) Cholesterol Level 189 mg/dL (0-200) LDL Cholesterol, Calculated 113 mg/dL (0-100) VLDL Cholesterol, Calculated 5 mg/dL (0-40) Non-HDL Cholesterol Calculated 118 mg/dL (0-129) HDL Cholesterol 71 mg/dL (40-60) Cholesterol/HDL Ratio 2.7 Thyroid Stimulating Hormone (TSH) 1.924 uIU/mL (0.358-3.74) Magnesium Level 1.7 mg/dL (1.8-2.4) 1.8 mg/dL (1.8-2.4) Microbiology 08/09/19 Blood Culture - Preliminary, Resulted NO GROWTH AFTER 1 DAY Medications Current Medications Sodium Chloride 1,000 ml @ 1,000 mls/hr 1X ONCE IV Last administered on 08/08/19at 21:24; Start 08/08/19 at 20:45; Stop 08/08/19 at 21:44; Status DC Labetalol HCl (Normodyne Iv Push) 10 mg 1X ONCE IVP Last administered on 08/08/19at 23:24; Start 08/08/19 at 23:00; Stop 08/08/19 at 23:01; Status DC Piperacillin Sod/ Tazobactam Sod 4.5 gm/Sodium Chloride 100 ml @ 200 mls/hr 1X ONCE IV Last administered on 08/08/19at 23:24; Start 08/08/19 at 23:00; Stop 08/08/19 at 23:29; Status DC Sodium Chloride 1,000 ml @ 1,000 mls/hr 1X ONCE IV Last administered on 08/08/19at 23:00; Start 08/08/19 at 23:00; Stop 08/08/19 at 23:59; Status DC Sodium Chloride 500 ml @ 500 mls/hr 1X ONCE IV Last administered on 08/08/19at 23:24; Start 08/09/19 at 00:00; Stop 08/09/19 at 00:59; Status DC Aspirin (Aspirin Rectal Supp) 300 mg 1X ONCE ND Last administered on 08/08/19at 23:00; Start 08/08/19 at 23:00; Stop 08/08/19 at 23:01; Status DC Lorazepam (Ativan Inj) 0.5 mg 1X ONCE IVP Last administered on 08/09/19at 00:38; Start 08/09/19 at 00:30; Stop 08/09/19 at 00:31; Status DC Ondansetron HCl (Zofran) 4 mg PRN Q8HRS PRN IV NAUSEA/VOMITING 1ST CHOICE Last administered on 08/09/19at 00:38; Start 08/09/19 at 00:00; Stop 08/09/19 at 08:18; Status DC Ondansetron HCl (Zofran) 4 mg PRN Q4HRS PRN IV NAUSEA/VOMITING 1ST CHOICE; Start 08/09/19 at 08:15 Enoxaparin Sodium (Lovenox 40mg Syringe) 40 mg Q24H SQ Last administered on 08/10/19at 08:29; Start 08/09/19 at 09:00 Ceftriaxone Sodium (Rocephin) 1 gm Q24H IVP Last administered on 08/10/19at 0 8:29; Start 08/09/19 at 09:00 Acetaminophen (Tylenol) 650 mg PRN Q6HRS PRN PO pain/fever; Start 08/09/19 at 08:15 Aspirin (Ecotrin) 81 mg DAILY PO Last administered on 08/10/19at 08:28; Start 08/09/19 at 09:00 Docusate Sodium (Colace) 20,000 mg BID PO ; Start 08/09/19 at 09:00; Stop 08/09/19 at 08:19; Status DC Polyethylene Glycol (miraLAX PACKET) 17 gm DAILY PRN PO CONSTIPATION; Start 08/09/19 at 08:15 Calcium Carbonate/ Glycine (Tums) 750 mg DAILY PO Last administered on 08/09/19at 12:02; Start 08/09/19 at 09:00 Vitamin D (Vitamin D3) 2,000 unit DAILY PO Last administered on 08/10/19at 08:28; Start 08/09/19 at 09:00 Non-Formulary Medication (Tofacitinib Citrate (Xeljanz Xr)) 11 mg DAILY PO Last administered on 08/10/19at 08:28; Start 08/09/19 at 13:00 Docusate Sodium (Colace) 200 mg BID PO Last administered on 08/10/19at 08:29; Start 08/09/19 at 09:00 Potassium Chloride/Water 100 ml @ 100 mls/hr Q1H IV Last administered on 08/09/19at 17:45; Start 08/09/19 at 14:00; Stop 08/09/19 at 17:59; Status DC Potassium Chloride (Klor-Con) 40 meq 1X ONCE PO Last administered on 08/09/19at 13:57; Start 08/09/19 at 13:15; Stop 08/09/19 at 13:19; Status DC Active Scripts Active Reported Xeljanz Xr (Tofacitinib Citrate) 11 Mg Tab.er.24h 11 Mg PO DAILY 30 Days Miralax (Polyethylene Glycol 3350) 17 Gm Powd.pack 1 Packet PO DAILY PRN Vitamin D (Cholecalciferol (Vitamin D3)) 2,000 Unit Capsule 1 Cap PO DAILY Prednisolone (Prednisolone, Micronized) 5 Gm Powder 12.5 Mg MC DAILY Colace (Docusate Sodium) 100 Mg Capsule 200 Cap PO BID Tums Ultra (Calcium Carbonate) 400 Mg Tab.chew 750 Mg PO DAILY Aspir 81 (Aspirin) 81 Mg Tablet.dr 81 Tab PO DAILY Sulfasalazine Dr (Sulfasalazine) 500 Mg Tablet. 1,000 Mg PO BID Uribel Capsule (Mth/Me Blue/Sod Phos/Phen/Hyos) 1 Each Capsule 1 Cap PO BID Vitals/I & O Vital Sign - Last 24 Hours 08/09/19 08/09/19 08/09/19 08/09/19 11:04 15:09 19:51 21:01 Temp 98.3 97.6 98.4 98.3 97.6 98.4 Pulse 77 80 78 Resp 18 18 20 B/P (MAP) 133/59 (83) 136/68 (90) 133/50 (77) Pulse Ox 95 96 98 O2 Delivery Room Air Room Air Room Air Room Air 08/09/19 08/10/19 08/10/19 23:59 03:19 07:23 Temp 99.1 97.9 98.9 99.1 97.9 98.9 Pulse 77 75 75 Resp 18 16 18 B/P (MAP) 118/ 119/54 (75) 139/79 (99) Pulse Ox 96 93 96 O2 Delivery Room Air Room Air Room Air Intake and Output 08/09/19 08/09/19 08/10/19 15:00 23:00 07:00 Intake Total 120 ml 120 ml 120 ml Balance 120 ml 120 ml 120 ml Images Echo: The left ventricular systolic function is normal. The Ejection Fraction is 55-60%. There is normal LV segmental wall motion. Transmitral Doppler flow pattern is Grade I-abnormal relaxation pattern. Doppler and Color Flow revealed trace tricuspid regurgitation. The PA pressure was estimated at 27 mmHg. There is no evidence of significant pericardial effusion. Nutrition Consultation Dietary Evaluation: Recommendations by RD: Dietary education by RD Comments: offer ensure enlive supplements from unit prn Expected Outcomes/Goals: to meet >75% est nutr needs Malnutrition Findings: Food and Nutrition Intake (Sev: <50% est energy req 5days Weight Status: Underweight TERA GIVENS MD Aug 10, 2019 08:34
[2019-08-10] MEDS ORDERED: MAGNESIUM SULFATE 2GM 50 ML IV ONE (09:00)
--- NOTE | 2019-08-10 13:27 | NUR ---
SW following. Discussed with RN, pt from home with spouse. RN advised no SW needs at this time. PT/OT recommending home independent. Dr. Cruz wanting to take urine cultures. SW will continue to follow.
--- NOTE | 2019-08-10 14:11 | PDOC ---
PROGRESS NOTES Assessment Assessment Aphasia, not evident. TIA likely. UTI. Hypokalemia, K+ 2.6. Sepsis? Elevated Troponin. HTN. HLD. RECOMMENDATIONS/PLAN: Continue ASA 162 mg daily. She was allergic to Statin. Treat UTI. Treat medical diseases. Treat HLD per floor team and PCP. Please consult Cardiology. Carotid A US + Doppler: No hemodynamically stenosis. Echo: Unremarkable. History of Present Illness This is a 78-year-old female patient with PMHx of High Cholesterol, UTIs, Rheumatoid arthritis, Anxiety disorder, Panic attacks who presents via EMS with report of altered mental status with dysuria for the past week per her . Patient with expressive aphasia upon arrival noted by ED physician with NIHSS 8, underwent CT head and CT head/cervical spine without acute process. ASA was administrated. Sepsis IV bolus and empiric antibiotic initiated. Neurology consultation requested for aphasia, but no symptoms of aphasia at the time of neurological exam. 08/10/19: Stating doing fine. No aphasia. Past Medical History Cardiovascular: Hyperlipidemia Pulmonary: No pertinent hx GI: No pertinent hx Heme/Onc: No pertinent hx Hepatobiliary: No pertinent hx Psych: Anxiety, Panic Rheumatologic: Rheumatoid arthritis Infectious disease: No pertinent hx ENT: No pertinent hx Renal/: No pertinent hx Endocrine: No pertinent hx Dermatology: No pertinent hx Family History Reviewed. She cannot recall Social History Smoke: No ALCOHOL: none Drugs: None Allergies Coded Allergies: atorvastatin (Unverified Allergy, Intermediate, 12/04/14) codeine (Unverified Allergy, Intermediate, 12/04/14) doxycycline (Unverified Allergy, Intermediate, 12/04/14) levofloxacin (Unverified Allergy, Intermediate, 12/05/14) meperidine (Unverified Allergy, Intermediate, 12/04/14) nitrofurantoin (Unverified Allergy, Intermediate, 12/04/14) solifenacin (Unverified Allergy, Intermediate, 12/04/14) tetracycline (Unverified Allergy, Intermediate, 12/04/14) tramadol (Unverified Allergy, Intermediate, 12/05/14) MEDICATIONS: Refer to MAR REVIEW OF SYSTEMS: Constitutional: No malnutrition, weight loss, cachexia. Head: No traumatic brain or head injury. Skin: No edema, or rash. Ear: No infection. Eyes: No vision loss or color blindness. Nose: No bleeding or purulent discharges. Hearing: No hearing decrease. Neck: No injury. Breast: No history of cancer, masses,or discharges. Cardiac: HTN, HLD. Pulmonary: No COPD. GI: No GI ulcer, GI bleeding. Urinary/genital: UTI. Endocrinologic: No cousin face, craniofacial dysmorphism, polydactyly. Skeletomuscular: No muscular atrophy, deformity. Neurological: see HP. Psychiatric: Denies drug use/abuse. Otherwise, not [id number] review of systems. PHYSICAL EXAMINATION: General appearance is in subacute distress. HEENT: Normocephalic and nontraumatic. Eyes, nose, ears, and throat are un remarkable. Neck is supple. No lymphadenopathy. No crepitus. Cardiovascular: S1, S2, regular rate and rhythm. Pulmonary: Clear to auscultation bilaterally. Abdomen: Bowel sounds are positive. Extremities: No rash, lesions, or edema. No restriction of range of motion NEUROLOGICAL EXAMINATION: Alert Partially oriented to time, but knew place and person. PERRL. EOMI. No aphasia. Speech normal. CN: no focal findings. Muscle tone: within normal. Muscle strength: 5 DTR: 2 Plantar reflex: Flexor response bilaterally Gait: not examined in bed. Sensory exam: no abnormal findings. No cerebellar signs elicited. F-T-N test fine. Objective Objective Vital Signs Date Time Temp Pulse Resp B/P (MAP) Pulse Ox O2 Delivery O2 Flow Rate FiO2 08/10/19 11:05 98.2 82 18 139/66 (90) 97 Room Air 98.2 Intake and Output 08/10/19 06:59 Intake Total 360 ml Balance 360 ml Intake Oral 360 ml # Voids 1 Vitals Signs Vitals VS - Last 72 Hours, by Label Date Time Temp Pulse Resp B/P (MAP) Pulse Ox O2 Delivery O2 Flow Rate FiO2 08/10/19 11:05 98.2 82 18 139/66 (90) 97 Room Air 98.2 08/10/19 08:10 Room Air 08/10/19 07:23 98.9 75 18 139/79 (99) 96 Room Air 98.9 08/10/19 03:19 97.9 75 16 119/54 (75) 93 Room Air 97.9 08/09/19 23:59 99.1 77 18 118/ 96 Room Air 99.1 08/09/19 21:01 Room Air 08/09/19 19:51 98.4 78 20 133/50 (77) 98 Room Air 98.4 08/09/19 15:09 97.6 80 18 136/68 (90) 96 Room Air 97.6 08/09/19 11:04 98.3 77 18 133/59 (83) 95 Room Air 98.3 08/09/19 08:30 Room Air 08/09/19 07:21 97.9 85 18 125/65 (85) 98 Room Air 97.9 Laboratory Laboratory Laboratory Tests Test 08/09/19 15:38 08/10/19 04:28 Magnesium Level 1.7 mg/dL (1.8-2.4) 1.8 mg/dL (1.8-2.4) Troponin I Quantitative 0.658 ng/mL (0.000-0.055) Sodium Level 142 mmol/L (136-145) Potassium Level 3.9 mmol/L (3.5-5.1) Chloride Level 108 mmol/L (98-107) Carbon Dioxide Level 24 mmol/L (21-32) Anion Gap 10 (6-14) Blood Urea Nitrogen 15 mg/dL (7-20) Creatinine 0.7 mg/dL (0.6-1.0) Estimated GFR (Cockcroft-Gault) 81.4 Glucose Level 94 mg/dL (70-99) Calcium Level 8.1 mg/dL (8.5-10.1) Microbiology 08/09/19 Blood Culture - Preliminary, Resulted NO GROWTH AFTER 1 DAY Medication Medications Current Medications Magnesium Sulfate 50 ml @ 25 mls/hr 1X ONCE IV Last administered on 08/10/19at 08:46; Start 08/10/19 at 09:00; Stop 08/10/19 at 10:59; Status DC Comment Review of Relevant I have reviewed the following items ebony (where applicable) has been applied. STEFAN NUÑEZ MD Aug 10, 2019 14:10
[2019-08-10] MEDS: PHEN PO SCH (20:51)
[2019-08-10] MEDS: SOD PHOS PO SCH (20:51)
[2019-08-10] MEDS: BLUE PO SCH (20:51)
[2019-08-10] MEDS: MTH PO SCH (20:51)
[2019-08-10] MEDS: HYOS PO SCH (20:51)
[2019-08-11 07:00] VITALS: BP 162/69
--- NOTE | 2019-08-11 08:30 | PDOC ---
PROGRESS NOTES Chief Complaint Chief Complaint A/P: Acute encephalopathy - possibly metabolic from hypokalemia vs CVA, will order MRI given her persisent aphasia Sepsis - meets SIRS criteria with abnormal UA, end-organ dysfunction with confusion Expressive aphasia - no CVA noted on CT. MRI ordered today Hypokalemia - replaced Hypomagnesemia - replaced Urinary tract infection Elevated troponin - trended negative. Seen by cardiology. Echo WNL, likely Hypertension High Cholesterol Frequent UTIs - may need outpatient suppressive treatment Rheumatoid arthritis - on xeljanz Anxiety disorder with Panic attacks - not on meds currently FEN - ADAT PPX - Lovenox FULL CODE Dispo - inpatient History of Present Illness History of Present Illness Ms Geiger is a 78yo F w/ PMHx High Cholesterol, UTIs, Rheumatoid arthritis, Anxiety disorder, Panic attacks who presents via EMS with report of altered mental status with dysuria for the past week per . Afebrile. Patient with expressive aphasia upon arrival noted by ED physician with NIHSS 8, underwent CT head and CT head/cervical spine without acute process. ASA given. Patient tachycardic and elevated WBC 12.1. Lactic acid within 3. UA with positive leukocyte esterase. Sepsis IV bolus and empiric antibiotic initiated. Chest x- ray clear. EKG stable. Initial troponin within normal limits. Repeat troponin 0.110. Repeat lactic acid improved. Admitted for further treatment. 08/08: Seen by cardiology and neurology in consultation. Echo revealed normal LV systolic function and RVSP 27mmHg 08/09: Feeling improved. Troponin peaked overnight. Seen by CLINICAL APPEALS AUDITOR, ok for diet. BP elevated. No CP or SOB. Getting around ok with PT. She wishes to have her Uribel supplement. Carotid dopplers with no evidence of hemodynamically significant carotid stenosis Overnight still with aphasia, right lip downturned droop. No focal deficits. D/w and patient her word finding difficulty is only within the past week w ith her associated confusion. Urine negative for infection. No CP or SOB. Working with CLINICAL APPEALS AUDITOR, recommended outpatient speech therapy Vitals Vitals Vital Signs Date Time Temp Pulse Resp B/P (MAP) Pulse Ox O2 Delivery O2 Flow Rate FiO2 08/11/19 07:00 98.2 79 17 162/69 (100) 95 Room Air 98.2 Physical Exam General: Alert, Cooperative, Other (expressive aphasia ) Heart: Regular rate, Normal S1, Normal S2 Abdomen: Soft Extremities: No edema, Normal pulses Skin: No significant lesion Assessment and Plan Assessmemt and Plan Problems Medical Problems: (1) Altered mental status Status: Acute (2) Altered mental status Status: Acute (3) Elevated troponin Status: Acute (4) Elevated troponin Status: Acute (5) Expressive aphasia Status: Acute (6) Expressive aphasia Status: Acute (7) Hypertension Status: Acute (8) Severe sepsis Status: Acute (9) Severe sepsis Status: Acute (10) UTI (urinary tract infection) Status: Acute (11) UTI (urinary tract infection) Status: Acute Comment Review of Relevant I have reviewed the following items ebony (where applicable) has been applied. Labs Laboratory Tests Test 08/09/19 10:30 08/09/19 15:38 08/10/19 04:28 White Blood Count 9.3 x10^3/uL (4.0-11.0) Red Blood Count 3.61 x10^6/uL (3.50-5.40) Hemoglobin 11.3 g/dL (12.0-15.5) Hematocrit 33.2 % (36.0-47.0) Mean Corpuscular Volume 92 fL (79-100) Mean Corpuscular Hemoglobin 31 pg (25-35) Mean Corpuscular Hemoglobin Concent 34 g/dL (31-37) Red Cell Distribution Width 13.5 % (11.5-14.5) Platelet Count 256 x10^3/uL (140-400) Neutrophils (%) (Auto) 78 % (31-73) Lymphocytes (%) (Auto) 10 % (24-48) Monocytes (%) (Auto) 12 % (0-9) Eosinophils (%) (Auto) 0 % (0-3) Basophils (%) (Auto) 0 % (0-3) Neutrophils # (Auto) 7.3 x10^3/uL (1.8-7.7) Lymphocytes # (Auto) 0.9 x10^3/uL (1.0-4.8) Monocytes # (Auto) 1.1 x10^3/uL (0.0-1.1) Eosinophils # (Auto) 0.0 x10^3/uL (0.0-0.7) Basophils # (Auto) 0.0 x10^3/uL (0.0-0.2) Sodium Level 137 mmol/L (136-145) 142 mmol/L (136-145) Potassium Level 2.6 mmol/L (3.5-5.1) 3.9 mmol/L (3.5-5.1) Chloride Level 103 mmol/L (98-107) 108 mmol/L (98-107) Carbon Dioxide Level 25 mmol/L (21-32) 24 mmol/L (21-32) Anion Gap 9 (6-14) 10 (6-14) Blood Urea Nitrogen 12 mg/dL (7-20) 15 mg/dL (7-20) Creatinine 0.7 mg/dL (0.6-1.0) 0.7 mg/dL (0.6-1.0) Estimated GFR (Cockcroft-Gault) 81.4 81.4 Glucose Level 109 mg/dL (70-99) 94 mg/dL (70-99) Calcium Level 8.0 mg/dL (8.5-10.1) 8.1 mg/dL (8.5-10.1) Troponin I Quantitative 0.729 ng/mL (0.000-0.055) 0.658 ng/mL (0.000-0.055) Triglycerides Level 23 mg/dL (0-150) Cholesterol Level 189 mg/dL (0-200) LDL Cholesterol, Calculated 113 mg/dL (0-100) VLDL Cholesterol, Calculated 5 mg/dL (0-40) Non-HDL Cholesterol Calculated 118 mg/dL (0-129) HDL Cholesterol 71 mg/dL (40-60) Cholesterol/HDL Ratio 2.7 Thyroid Stimulating Hormone (TSH) 1.924 uIU/mL (0.358-3.74) Magnesium Level 1.7 mg/dL (1.8-2.4) 1.8 mg/dL (1.8-2.4) Microbiology 08/09/19 Blood Culture - Preliminary, Resulted NO GROWTH AFTER 2 DAYS 08/08/19 Urine Culture - Final, Complete 08/08/19 Urine Culture Result 1 (TREVIN) - Final, Complete Medications Current Medications Sodium Chloride 1,000 ml @ 1,000 mls/hr 1X ONCE IV Last administered on 08/08/19at 21:24; Start 08/08/19 at 20:45; Stop 08/08/19 at 21:44; Status DC Labetalol HCl (Normodyne Iv Push) 10 mg 1X ONCE IVP Last administered on 08/08/19at 23:24; Start 08/08/19 at 23:00; Stop 08/08/19 at 23:01; Status DC Piperacillin Sod/ Tazobactam Sod 4.5 gm/Sodium Chloride 100 ml @ 200 mls/hr 1X ONCE IV Last administered on 08/08/19at 23:24; Start 08/08/19 at 23:00; Stop 08/08/19 at 23:29; Status DC Sodium Chloride 1,000 ml @ 1,000 mls/hr 1X ONCE IV Last administered on at 23:00; Start 08/08/19 at 23:00; Stop 08/08/19 at 23:59; Status DC Sodium Chloride 500 ml @ 500 mls/hr 1X ONCE IV Last administered on 08/08/19at 23:24; Start 08/09/19 at 00:00; Stop 08/09/19 at 00:59; Status DC Aspirin (Aspirin Rectal Supp) 300 mg 1X ONCE WA Last administered on 08/08/19at 23:00; Start 08/08/19 at 23:00; Stop 08/08/19 at 23:01; Status DC Lorazepam (Ativan Inj) 0.5 mg 1X ONCE IVP Last administered on 08/09/19at 00:38; Start 08/09/19 at 00:30; Stop 08/09/19 at 00:31; Status DC Ondansetron HCl (Zofran) 4 mg PRN Q8HRS PRN IV NAUSEA/VOMITING 1ST CHOICE Last administered on 08/09/19at 00:38; Start 08/09/19 at 00:00; Stop 08/09/19 at 08:18; Status DC Ondansetron HCl (Zofran) 4 mg PRN Q4HRS PRN IV NAUSEA/VOMITING 1ST CHOICE; Start 08/09/19 at 08:15 Enoxaparin Sodium (Lovenox 40mg Syringe) 40 mg Q24H SQ Last administered on 08/10/19at 08:29; Start 08/09/19 at 09:00 Ceftriaxone Sodium (Rocephin) 1 gm Q24H IVP Last administered on 08/10/19at 08:29; Start 08/09/19 at 09:00 Acetaminophen (Tylenol) 650 mg PRN Q6HRS PRN PO pain/fever; Start 08/09/19 at 08:15 Aspirin (Ecotrin) 81 mg DAILY PO Last administered on 08/10/19at 08:28; Start 08/09/19 at 09:00; Stop 08/10/19 at 14:11; Status DC Docusate Sodium (Colace) 20,000 mg BID PO ; Start 08/09/19 at 09:00; Stop 08/09/19 at 08:19; Status DC Polyethylene Glycol (miraLAX PACKET) 17 gm DAILY PRN PO CONSTIPATION; Start 08/09/19 at 08:15 Calcium Carbonate/ Glycine (Tums) 750 mg DAILY PO Last administered on 08/09/19at 12:02; Start 08/09/19 at 09:00 Vitamin D (Vitamin D3) 2,000 unit DAILY PO Last administered on 08/10/19at 08:28; Start 08/09/19 at 09:00 Non-Formulary Medication (Tofacitinib Citrate (Xeljanz Xr)) 11 mg DAILY PO Last administered on 08/10/19at 08:28; Start 08/09/19 at 13:00 Docusate Sodium (Colace) 200 mg BID PO Last administered on 08/10/19at 20:09; Start 08/09/19 at 09:00 Potassium Chloride/Water 100 ml @ 100 mls/hr Q1H IV Last administered on 08/09/19at 17:45; Start 08/09/19 at 14:00; Stop 08/09/19 at 17:59; Status DC Potassium Chloride (Klor-Con) 40 meq 1X ONCE PO Last administered on 08/09/19at 13:57; Start 08/09/19 at 13:15; Stop 08/09/19 at 13:19; Status DC Magnesium Sulfate 50 ml @ 25 mls/hr 1X ONCE IV Last administered on 08/10/19at 08:46; Start 08/10/19 at 09:00; Stop 08/10/19 at 10:59; Status DC Aspirin (Ecotrin) 162 mg DAILY PO ; Start 08/11/19 at 09:00 Non-Formulary Medication (Mth/Me Blue/Sod Phos/Phen/Hyos (Uribel Capsule)) 1 cap BID PO ; Start 08/10/19 at 21:00; Status UNV Active Scripts Active Reported Xeljanz Xr (Tofacitinib Citrate) 11 Mg Tab.er.24h 11 Mg PO DAILY 30 Days Miralax (Polyethylene Glycol 3350) 17 Gm Powd.pack 1 Packet PO DAILY PRN Vitamin D (Cholecalciferol (Vitamin D3)) 2,000 Unit Capsule 1 Cap PO DAILY Prednisolone (Prednisolone, Micronized) 5 Gm Powder 12.5 Mg MC DAILY Colace (Docusate Sodium) 100 Mg Capsule 200 Cap PO BID Tums Ultra (Calcium Carbonate) 400 Mg Tab.chew 750 Mg PO DAILY Aspir 81 (Aspirin) 81 Mg Tablet.dr 81 Tab PO DAILY Sulfasalazine Dr (Sulfasalazine) 500 Mg Tablet. 1,000 Mg PO BID Uribel Capsule (Mth/Me Blue/Sod Phos/Phen/Hyos) 1 Each Capsule 1 Cap PO BID Vitals/I & O Vital Sign - Last 24 Hours 08/10/19 08/10/19 08/10/19 08/10/19 11:05 15:38 19:15 20:00 Temp 98.2 97.6 98.3 98.2 97.6 98.3 Pulse 82 80 80 Resp 18 18 18 B/P (MAP) 139/66 (90) 148/67 (94) 170/75 (106) Pulse Ox 97 98 97 O2 Delivery Room Air Room Air Room Air Room Air 08/10/19 08/11/19 23:30 07:00 Temp 97.9 98.2 97.9 98.2 Pulse 76 79 Resp 18 17 B/P (MAP) 136/59 (84) 162/69 (100) Pulse Ox 96 95 O2 Delivery Room Air Room Air Intake and Output 08/10/19 08/10/19 08/11/19 15:00 23:00 07:00 Intake Total 400 ml 200 ml 250 ml Balance 400 ml 200 ml 250 ml Nutrition Consultation Dietary Evaluation: Recommendations by RD: Dietary education by RD Comments: offer ensure enlive supplements from unit prn Expected Outcomes/Goals: to meet >75% est nutr needs Malnutrition Findings: Food and Nutrition Intake (Sev: <50% est energy req 5days Weight Status: Underweight TEAR GIVENS MD Aug 11, 2019 08:30
[2019-08-11] MEDS: MTH PO SCH (09:00)
[2019-08-11] MEDS: PHEN PO SCH (09:00)
[2019-08-11] MEDS: SOD PHOS PO SCH (09:00)
[2019-08-11] MEDS ORDERED: ASPIRIN ENTERIC COATED 81 MG TABLET.DR. PO SCH (09:00)
[2019-08-11] MEDS: BLUE PO SCH (09:00)
[2019-08-11] MEDS: HYOS PO SCH (09:00)
[2019-08-11] MEDS: ENOXAPARIN 40 MG/0.4 ML SYRINGE. SQ SCH (09:16)
[2019-08-11] MEDS: DOCUSATE SODIUM 100 MG CAPSULE. PO SCH (09:17)
[2019-08-11] MEDS: CALCIUM CARBONATE 500 MG TAB.CHEW PO SCH (09:17)
[2019-08-11] MEDS: TOFACITINIB CITRATE 11 MG PO SCH (09:18)
[2019-08-11] MEDS: cefTRIAXone IV Push 1 GM VIAL. IVP SCH (09:18)
[2019-08-11] MEDS: CHOLECALCIFEROL (VITAMIN D3) 1,000 UNIT TABLET PO SCH (09:23)
[2019-08-11 10:49] VITALS: BP 166/70
--- NOTE | 2019-08-11 12:39 | NUR ---
[facility] following for discharge planning. Reviewed pt's chart and spoke with Dr. Cruz who will check with pt and family about the possibility of HH. Pt currently on IV antibiotics, urine cultures negative.
[2019-08-11] MEDS ORDERED: amLODIPine BESYLATE 5 MG TABLET PO SCH (13:00)
[2019-08-11] MEDS ORDERED: ASPI-612 PO (14:34)
[2019-08-11] MEDS ORDERED: AMLO5TAB10 PO (14:34)
--- NOTE | 2019-08-11 14:34 | PDOC ---
PROGRESS NOTES Assessment Assessment Aphasia, not evident but recurred on 08/11/19. TIA likely. UTI. Hypokalemia, K+ 2.6. Sepsis? Elevated Troponin. HTN. HLD. Constipation. RECOMMENDATIONS/PLAN: Continue ASA 162 mg daily. Increase to 325 mg daily if has stroke. She was allergic to Statin. Brain MRI w/o contrast. Treat UTI. Treat medical diseases. Treat HLD per floor team and PCP. Please consult Cardiology. Carotid A US + Doppler: No hemodynamically stenosis. Echo: Unremarkable. History of Present Illness This is a 78-year-old female patient with PMHx of High Cholesterol, UTIs, Rheumatoid arthritis, Anxiety disorder, Panic attacks who presents via EMS with report of altered mental status with dysuria for the past week per her . Patient with expressive aphasia upon arrival noted by ED physician with NIHSS 8, underwent CT head and CT head/cervical spine without acute process. ASA was administrated. Sepsis IV bolus and empiric antibiotic initiated. Neurology consultation requested for aphasia, but no symptoms of aphasia at the time of neurological exam. 08/11/19: Stating doing fine. Aphasia recurred per floor team. No motor or sensory complaints. Past Medical History Cardiovascular: Hyperlipidemia Pulmonary: No pertinent hx GI: No pertinent hx Heme/Onc: No pertinent hx Hepatobiliary: No pertinent hx Psych: Anxiety, Panic Rheumatologic: Rheumatoid arthritis Infectious disease: No pertinent hx ENT: No pertinent hx Renal/: No pertinent hx Endocrine: No pertinent hx Dermatology: No pertinent hx Family History Reviewed. She cannot recall Social History Smoke: No ALCOHOL: none Drugs: None Allergies Coded Allergies: atorvastatin (Unverified Allergy, Intermediate, 12/04/14) codeine (Unverified Allergy, Intermediate, 12/04/14) doxycycline (Unverified Allergy, Intermediate, 12/04/14) levofloxacin (Unverified Allergy, Intermediate, 12/05/14) meperidine (Unverified Allergy, Intermediate, 12/04/14) nitrofurantoin (Unverified Allergy, Intermediate, 12/04/14) solifenacin (Unverified Allergy, Intermediate, 12/04/14) tetracycline (Unverified Allergy, Intermediate, 12/04/14) tramadol (Unverified Allergy, Intermediate, 12/05/14) MEDICATIONS: Refer to MAR REVIEW OF SYSTEMS: Constitutional: No malnutrition, weight loss, cachexia. Head: No traumatic brain or head injury. Skin: No edema, or rash. Ear: No infection. Eyes: No vision loss or color blindness. Nose: No bleeding or purulent discharges. Hearing: No hearing decrease. Neck: No injury. Breast: No history of cancer, masses,or discharges. Cardiac: HTN, HLD. Pulmonary: No COPD. GI: No GI ulcer, GI bleeding. Urinary/genital: UTI. Endocrinologic: No cousin face, craniofacial dysmorphism, polydactyly. Skeletomuscular: No muscular atrophy, deformity. Neurological: see HP. Psychiatric: Denies drug use/abuse. Otherwise, not [id number] review of systems. PHYSICAL EXAMINATION: General appearance is in subacute distress. HEENT: Normocephalic and nontraumatic. Eyes, nose, ears, and throat are unremarkable. Neck is supple. No lymphadenopathy. No crepitus. Cardiovascular: S1, S2, regular rate and rhythm. Pulmonary: Clear to auscultation bilaterally. Abdomen: Bowel sounds are positive. Extremities: No rash, lesions, or edema. No restriction of range of motion NEUROLOGICAL EXAMINATION: Alert Partially oriented to time, but knew place and person. PERRL. EOMI. No aphasia. Speech normal. CN: no focal findings. Muscle tone: within normal. Muscle strength: 5 DTR: 2 Plantar reflex: Flexor response bilaterally Gait: Able to walk. Sensory exam: no abnormal findings. No cerebellar signs elicited. F-T-N test fine. Objective Objective Vital Signs Date Time Temp Pulse Resp B/P (MAP) Pulse Ox O2 Delivery O2 Flow Rate FiO2 08/11/19 10:49 98.0 80 17 166/70 (102) 95 Room Air 98.0 Intake and Output 08/11/19 07:00 Intake Total 850 ml Balance 850 ml Intake Oral 850 ml # Voids 6 Vitals Signs Vitals VS - Last 72 Hours, by Label Date Time Temp Pulse Resp B/P (MAP) Pulse Ox O2 Delivery O2 Flow Rate FiO2 08/11/19 10:49 98.0 80 17 166/70 (102) 95 Room Air 98.0 08/11/19 08:00 Room Air 08/11/19 07:00 98.2 79 17 162/69 (100) 95 Room Air 98.2 08/10/19 23:30 97.9 76 18 136/59 (84) 96 Room Air 97.9 08/10/19 20:00 Room Air 08/10/19 19:15 98.3 80 18 170/75 (106) 97 Room Air 98.3 08/10/19 15:38 97.6 80 18 148/67 (94) 98 Room Air 97.6 08/10/19 11:05 98.2 82 18 139/66 (90) 97 Room Air 98.2 08/10/19 08:10 Room Air 08/10/19 07:23 98.9 75 18 139/79 (99) 96 Room Air 98.9 Laboratory Laboratory Microbiology 08/09/19 Blood Culture - Preliminary, Resulted NO GROWTH AFTER 2 DAYS 08/08/19 Urine Culture - Final, Complete 08/08/19 Urine Culture Result 1 (TREVIN) - Final, Complete Medication Medications Current Medications Amlodipine Besylate (Norvasc) 2.5 mg DAILY PO ; Start 08/11/19 at 13:00 Aspirin (Ecotrin) 162 mg DAILY PO Last administered on 08/11/19at 09:17; Start 08/11/19 at 09:00 Non-Formulary Medication (Mth/Me Blue/Sod Phos/Phen/Hyos (Uribel Capsule)) 1 cap BID PO ; Start 08/10/19 at 21:00; Status UNV Comment Review of Relevant I have reviewed the following items ebony (where applicable) has been applied. STEFAN NUÑEZ MD Aug 11, 2019 14:34
--- NOTE | 2019-08-11 14:36 | SNU/HH DC ---
DISCHARGE WITH HOME HEALTH DISCHARGE INFORMATION: Discharge Date: Aug 11, 2019 Final Diagnosis: Problems Medical Problems: (1) Altered mental status Status: Acute (2) Altered mental status Status: Acute (3) Elevated troponin Status: Acute (4) Elevated troponin Status: Acute (5) Expressive aphasia Status: Acute (6) Expressive aphasia Status: Acute (7) Hypertension Status: Acute (8) Severe sepsis Status: Acute (9) Severe sepsis Status: Acute (10) UTI (urinary tract infection) Status: Acute (11) UTI (urinary tract infection) Status: Acute Condition on Discharge: Stable CODE STATUS: Code Status: Full HOME HEALTH: Face to Face: I certify this patient is under my care and that I, or a nurse practitioner or physician's health assistant working with me, had a face to face encounter that meets the physician face to face encounter requirements with this patient on 08/11/2019. Medical Complications: DJD, Other (Dyphasia) Penitentiary For: Assess Cardiopulm Status, Medication Management, Pain Management RN For Eval/Treatment: Yes Physical Therapy For: Evalulation/Treatment Occupational Therapy For: Evaluation/Treatment Pt Meets Homebound Status: Limited distance walking, Poor cognition POST DISCHARGE ORDERS: Activity Instructions for Disc: Resume previous activity Weight Bearing Status after Di: Full weight bearing DIET AFTER DISCHARGE: Regular CHECKS AFTER DISCHARGE: Checks after discharge: Check blood press - daily, Check your Temp as needed, Weigh Yourself Daily CERTIFICATION STATEMENT: Certification Statement: Certification Statement: Based on the above finding, I certify that this patient is confined to the home and needs intermittent usp care, physical therapy and/or speech therapy, or continues to need occupational therapy.~ This patient is under my care, and I have initiated the establishment of the plan of care.~ This patient will be followed by myself or a community physician who will periodically review the plan of care. Home Meds Active Scripts Amlodipine Besylate (AMLODIPINE BESYLATE) 5 Mg Tablet, 2.5 MG PO DAILY for HTN for 90 Days, #45 TAB 3 Refills Prov:TERA GIVENS MD 08/11/19 Aspirin (ASPIRIN EC) 81 Mg Tablet.dr, 162 MG PO DAILY for CVA for 90 Days, #180 TAB.SR 3 Refills Prov:TERA GIVESN MD 08/11/19 Reported Medications Tofacitinib Citrate (Xeljanz Xr) 11 Mg Tab.er.24h, 11 MG PO DAILY for rheumatoid arthritis for 30 Days, #30 08/09/19 Polyethylene Glycol 3350 (MIRALAX) 17 Gm Powd.pack, 1 PACKET PO DAILY PRN for CONSTIPATION, #30 PACKET 3 Refills 12/04/14 Cholecalciferol (Vitamin D3) (VITAMIN D) 2,000 Unit Capsule, 1 CAP PO DAILY, #30 CAP 3 Refills 12/04/14 Prednisolone, Micronized (PREDNISOLONE) 5 Gm Powder, 12.5 MG MC DAILY 12/04/14 Docusate Sodium (COLACE) 100 Mg Capsule, 200 CAP PO BID, #30 CAP 12/04/14 Calcium Carbonate (TUMS ULTRA) 400 Mg Tab.chew, 750 MG PO DAILY, TAB.CHEW 12/04/14 Aspirin (ASPIR 81) 81 Mg Tablet.dr, 81 TAB PO DAILY, #30 TAB 5 Refills 12/04/14 Sulfasalazine (SULFASALAZINE DR) 500 Mg Tablet.dr, 1000 MG PO BID 12/04/14 Mth/Me Blue/Sod Phos/Phen/Hyos (URIBEL CAPSULE) 1 Each Capsule, 1 CAP PO BID, #20 CAP 1 Refill 12/04/14 TERA GIVENS MD Aug 11, 2019 14:36
[2019-08-11 15:00] VITALS: BP 160/74
--- NOTE | 2019-08-11 15:40 | RAD ---
BRAIN W/O CONTRAST Date: 08/11/2019 12:46 PM Indication: Word finding difficulty, aphasia Comparison: CT head 08/08/2019. Technique: Multiplanar multisequence MRI of the brain was performed without intravenous contrast using the standard protocol. Findings: Several foci of restricted diffusion in the left MCA distribution. No acute hemorrhage. Punctate focus of gradient susceptibility in the central malika consistent with chronic microhemorrhage. The ventricles are normal in size and configuration without hydrocephalus. Extensive FLAIR hyperintense signal in the subcortical and periventricular deep white matter, a nonspecific finding, most commonly seen with chronic small vessel ischemic disease. Mild generalized cerebral volume loss. The scalp and calvarium are normal. The pituitary and sella are normal. No Chiari malformation. Incompletely characterized degenerative spondylosis of the visualized upper cervical spine. The visualized orbits and globes are normal. The visualized paranasal sinuses are clear. The mastoid air cells are clear. Normal flow voids within the vertebral, basilar, and internal carotid arteries indicating patency. IMPRESSION: 1. Several foci of acute infarct in the left MCA territory. No acute hemorrhage. 2. Extensive chronic small vessel ischemic disease and mild generalized cerebral volume loss.. Findings were called to the patient's nurse, Leslie, at 3:31 PM on 08/11/2019. FOR INTERNAL CODING PURPOSES RESULT CODE: (C) Electronically signed by: Martin Guzman MD (08/11/2019 3:36 PM) [id number]
--- NOTE | 2019-08-11 15:56 | PDOC3 ---
Discharge Summary Visit Information Date of Admission: Aug 09, 2019 Date of Discharge: Aug 11, 2019 Admitting Diagnosis: Acute CVA Final Diagnosis Problems Medical Problems: (1) Altered mental status Status: Acute (2) Altered mental status Status: Acute (3) Elevated troponin Status: Acute (4) Elevated troponin Status: Acute (5) Expressive aphasia Status: Acute (6) Expressive aphasia Status: Acute (7) Hypertension Status: Acute (8) Severe sepsis Status: Acute (9) Severe sepsis Status: Acute (10) UTI (urinary tract infection) Status: Acute (11) UTI (urinary tract infection) Status: Acute Brief Hospital Course Allergies Allergies Coded Allergies Type Severity Reaction Last Updated Verified atorvastatin Allergy Intermediate 12/04/14 No codeine Allergy Intermediate 12/04/14 No doxycycline Allergy Intermediate 12/04/14 No levofloxacin Allergy Intermediate 12/05/14 No meperidine Allergy Intermediate 12/04/14 No nitrofurantoin Allergy Intermediate 12/04/14 No solifenacin Allergy Intermediate 12/04/14 No tetracycline Allergy Intermediate 12/04/14 No tramadol Allergy Intermediate 12/05/14 No Vital Signs Vital Signs Date Time Temp Pulse Resp B/P (MAP) Pulse Ox O2 Delivery O2 Flow Rate FiO2 08/11/19 10:49 98.0 80 17 166/70 (102) 95 Room Air 98.0 Lab Results Laboratory Tests Test 08/10/19 04:28 Sodium Level 142 mmol/L (136-145) Potassium Level 3.9 mmol/L (3.5-5.1) Chloride Level 108 mmol/L (98-107) Carbon Dioxide Level 24 mmol/L (21-32) Anion Gap 10 (6-14) Blood Urea Nitrogen 15 mg/dL (7-20) Creatinine 0.7 mg/dL (0.6-1.0) Estimated GFR (Cockcroft-Gault) 81.4 Glucose Level 94 mg/dL (70-99) Calcium Level 8.1 mg/dL (8.5-10.1) Magnesium Level 1.8 mg/dL (1.8-2.4) Brief Hospital Course Ms Geiger is a 78yo F w/ PMHx High Cholesterol, UTIs, Rheumatoid arthritis, Anxiety disorder, Panic attacks who presents via EMS with report of altered mental status with dysuria for the past week per . Afebrile. Patient with expressive aphasia upon arrival noted by ED physician with NIHSS 8, underwent CT head and CT head/cervical spine without acute process. ASA given. Patient tachycardic and elevated WBC 12.1. Lactic acid within 3. UA with positive leukocyte esterase. Sepsis IV bolus and empiric antibiotic initiated. Chest x- ray clear. EKG stable. Initial troponin within normal limits. Repeat troponin 0.110. Repeat lactic acid improved. Admitted for further treatment. 08/08: Seen by cardiology and neurology in consultation. Echo revealed normal LV systolic function and RVSP 27mmHg 08/09: Feeling improved. Troponin peaked overnight. Seen by [facility], ok for diet. BP elevated. No CP or SOB. Getting around ok with PT. She wishes to have her Uribel supplement. Carotid dopplers with no evidence of hemodynamically significant carotid stenosis Overnight still with aphasia, right lip downturned droop. No focal deficits. D/w and patient her word finding difficulty is only within the past week with her associated confusion. Urine negative for infection. No CP or SOB. Working with [facility], recommended outpatient speech therapy Found to have acute left MCA infarct, given stroke rehab information Problem list: Acute encephalopathy - possibly metabolic from hypokalemia vs her acute CVA, will order MRI given her persisent aphasia Sepsis - meets SIRS criteria with abnormal UA, end-organ dysfunction with confusion Expressive aphasia - no CVA noted on CT. MRI confirmed with acute left MCA infarct. Hypokalemia - replaced Hypomagnesemia - replaced Urinary tract infection Elevated troponin - trended negative. Seen by cardiology. Echo WNL, likely related to CVA, hypertensive urgency Hypertension - with urgency on admit. Will d/c on 2.5mg amlodipine daily. High Cholesterol Frequent UTIs - may need outpatient suppressive treatment Rheumatoid arthritis - on xeljanz Anxiety disorder with Panic attacks - not on meds currently BRAIN MRI: Several foci of restricted diffusion in the left MCA distribution. No acute hemorrhage. Punctate focus of gradient susceptibility in the central malika consistent with chronic microhemorrhage. The ventricles are normal in size and configuration without hydrocephalus. Extensive FLAIR hyperintense signal in the subcortical and periventricular deep white matter, a nonspecific finding, most commonly seen with chronic small vessel ischemic disease. Mild generalized cerebral volume loss. The scalp and calvarium are normal. The pituitary and sella are normal. No Chiari malformation. Incompletely characterized degenerative spondylosis of the visualized upper cervical spine. The visualized orbits and globes are normal. The visualized paranasal sinuses are clear. The mastoid air cells are clear. Normal flow voids within the vertebral, basilar, and internal carotid arteries indicating patency. IMPRESSION: 1. Several foci of acute infarct in the left MCA territory. No acute hemorrhage. 2. Extensive chronic small vessel ischemic disease and mild generalized cerebral volume loss. Greater than 30 minutes spent on d/c Discharge Information Condition at Discharge: Improved Follow Up: Weeks Disposition/Orders: D/C to Home w/ HH Scheduled Amlodipine Besylate (Amlodipine Besylate) 5 Mg Tablet, 2.5 MG PO DAILY for HTN for 90 Days, #45 Ref 3 Prescribed by: TERA GIVENS MD on 08/11/19 1434 Aspirin (Aspir 81) 81 Mg Tablet.dr, 81 TAB PO DAILY, #30 Ref 5 (Reported) Entered as Reported by: MASSIEL THOMPSON on 12/04/142336 Last Action: Continued on 08/09/19817 by TERA GIVENS MD Aspirin (Aspirin Ec) 81 Mg Tablet.dr, 162 MG PO DAILY for CVA for 90 Days, #180 Ref 3 Prescribed by: TERA GIVENS MD on 08/11/19 1434 Calcium Carbonate (Tums Ultra) 400 Mg Tab.chew, 750 MG PO DAILY, (Reported) Entered as Reported by: MASSIEL THOMPSON on 12/04/142336 Last Action: Converted on 08/09/19817 by TERA GIVENS MD Cholecalciferol (Vitamin D3) (Vitamin D) 2,000 Unit Capsule, 1 CAP PO DAILY, #30 Ref 3 (Reported) Entered as Reported by: MASSIEL THOMPSON on 12/04/142336 Last Action: Converted on 08/09/19817 by TERA GIVENS MD Docusate Sodium (Colace) 100 Mg Capsule, 200 CAP PO BID, #30 (Reported) Entered as Reported by: MASSIEL THOMPSON on 12/04/142336 Last Action: Continued on 08/09/19817 by TERA GIVENS MD Mth/Id Blue/Sod Phos/Phen/Hyos (Uribel Capsule) 1 Each Capsule, 1 CAP PO BID, #20 Ref 1 (Reported) Entered as Reported by: MASSIEL THOMPSON on 12/04/142336 Last Action: Converted on 08/10/191414 by TERA GIVENS MD Prednisolone, Micronized (Prednisolone) 5 Gm Powder, 12.5 MG MC DAILY, (Reported) Entered as Reported by: MASSIEL THOMPSON on 12/04/142336 Sulfasalazine (Sulfasalazine Dr) 500 Mg Tablet.dr, 1,000 MG PO BID, (Reported) Entered as Reported by: MASSIEL TOHMPSON on 12/04/142336 Tofacitinib Citrate (Xeljanz Xr) 11 Mg Tab.er.24h, 11 MG PO DAILY for rheumatoid arthritis for 30 Days, #30 (Reported) Entered as Reported by: TERA GIVENS MD on 08/09/19818 Last Action: Converted on 08/09/19819 by TERA GIVENS MD Scheduled PRN Polyethylene Glycol 3350 (Miralax) 17 Gm Powd.pack, 1 PACKET PO DAILY PRN for CONSTIPATION, #30 Ref 3 (Reported) Entered as Reported by: MASSIEL THOMPSON on 12/04/142336 Last Action: Continued on 08/09/19817 by MD CHON WU CHRISTOPHER S MD Aug 11, 2019 15:56
--- NOTE | 2019-08-11 16:44 | NUR ---
Pt escorted down to main entrance to family. Belongings and education in place. IV and telemonitor off patient. This Rn escorted out via wheelchair.
== END 2019-08-11 16:40 | disposition home health service (06) | DRG 871 ==
LOC: ER 20:40 → 6 SOUTH 08-09 03:56
PROVIDERS: ADMIT Internal Medicine; ATTEND Internal Medicine
DX: A41.9 Sepsis, unspecified organism (principal); I63.512 Cerebral infarction due to unspecified occlusion or stenosis of left middle cerebral artery; G93.41 Metabolic encephalopathy; E87.2 Acidosis; N39.0 Urinary tract infection, site not specified; R47.01 Aphasia; E78.00 Pure hypercholesterolemia, unspecified; E78.5 Hyperlipidemia, unspecified; E83.42 Hypomagnesemia; E87.6 Hypokalemia; F41.0 Panic disorder [episodic paroxysmal anxiety]; I10 Essential (primary) hypertension; I16.0 Hypertensive urgency; K59.00 Constipation, unspecified; M06.9 Rheumatoid arthritis, unspecified; M47.9 Spondylosis, unspecified; R65.20 Severe sepsis without septic shock; Z79.82 Long term (current) use of aspirin; Z82.49 Family history of ischemic heart disease and other diseases of the circulatory system; Z87.440 Personal history of urinary (tract) infections; Z88.8 Allergy status to other drugs, medicaments and biological substances; M19.90 Unspecified osteoarthritis, unspecified site; Z88.1 Allergy status to other antibiotic agents; Z88.5 Allergy status to narcotic agent
CPT/HCPCS: 36415; 70450; 70551; 71045; 72125; 80048; 80053; 80061; 81001; 82140; 82553; 82962; 83605; 83735; 84443; 84484; 85025; 85610; 85730; 87040; 87086; 93005; 93306; 93880; 96361; 96365; 96375; J0696; J1650; J2060; J2405; J2543; J3475; J3480; J3490; J7030; J7040; 92610; 99291-25; G0378

== ENCOUNTER 2019-09-14 20:34 | Emergency (ER) | payer MEDICARE ==
[~2019-09-14] VITALS: Ht 172.7 cm; Wt 68.2 kg
[~2019-09-14 20:34] MED LIST changes: +AMLO5TAB10 PO; +ASPI-612 PO; +TOFA11TA PO
[2019-09-14 20:59] LABS: BASO # 0.1 x10^3/uL (0.0-0.2); BASO % 1 % (0-3); EOS # 0.1 x10^3/uL (0.0-0.7); EOS % 2 % (0-3); HEMATOCRIT 35.6 % (36.0-47.0); HEMOGLOBIN 12.2 g/dL (12.0-15.5); LYMPH # 1.4 x10^3/uL (1.0-4.8); LYMPH % 26 % (24-48); MEAN CORPUSCULAR HEMOGLOBIN 32 pg (25-35); MEAN CORPUSCULAR HGB CONC 34 g/dL (31-37); MEAN CORPUSCULAR VOLUME 92 fL (79-100); MONO # 0.5 x10^3/uL (0.0-1.1); MONO % 10 % (0-9); NEUT # 3.3 x10^3/uL (1.8-7.7); NEUT % 61 % (31-73); PLATELET COUNT 264 x10^3/uL (140-400); RED BLOOD COUNT 3.88 x10^6/uL (3.50-5.40); RED CELL DISTRIBUTION WIDTH 13.6 % (11.5-14.5); WHITE BLOOD COUNT 5.4 x10^3/uL (4.0-11.0)
[2019-09-14] MEDS ORDERED: IV NORMAL SALINE 1000ML BAG 1,000 ML IV ONE (21:00)
[2019-09-14 21:12] LABS: CREATININE 0.8 mg/dL (0.6-1.0); GFR 69.6; POTASSIUM 3.7 mmol/L (3.5-5.1)
--- NOTE | 2019-09-14 21:17 | RAD ---
CT scan of the head without contrast 09/14/2019 Clinical History: Headache. Technique: Unenhanced, contiguous, 5 mm axial sections were obtained through the head. One or more of the following individualized dose reduction techniques were utilized for this study: 1. Automated exposure control. 2. Adjustment of the mA and/or kV according to patient size. 3. Use of iterative reconstruction technique. Findings: Comparison study is dated 08/08/2019. There is generalized parenchymal atrophy. Areas of decreased attenuation are seen within the periventricular and subcortical white matter of both cerebral hemispheres consistent with areas of small vessel ischemic disease. No acute parenchymal abnormality is seen. No extra-axial fluid collection is noted. No skull fracture is seen. Impression: No acute intracranial abnormality is seen. Electronically signed by: Kwesi Sanz MD (09/14/2019 9:15 PM) [id number]
[2019-09-14 21:18] LABS: ALBUMIN/GLOBULIN RATIO 1.2 (1.0-1.7); MAGNESIUM 2.1 mg/dL (1.8-2.4); TOTAL BILIRUBIN 0.3 mg/dL (0.2-1.0); TOTAL PROTEIN 7.4 g/dL (6.4-8.2)
[2019-09-14] MEDS ORDERED: cloNIDine HCL 0.1 MG TABLET PO ONE (21:30)
[2019-09-14] MEDS ORDERED: LABETALOL 20 MG/4 ML DISP.SYRIN. IVP ONE (21:30)
[2019-09-14] MEDS ORDERED: CLON0.1T PO (21:31)
--- NOTE | 2019-09-14 21:32 | PHYS DOC ---
Past Medical History Past Medical History: High Cholesterol, Other Additional Past Medical Histor: urinary hesitancy, rheum. arth., herpes Past Surgical History: Tonsillectomy, Other Additional Past Surgical Histo: uterine prolapse Smoking Status: Never Smoker Alcohol Use: None Drug Use: None General Adult EDM: Chief Complaint: HEADACHE HPI: HPI: Patient is a 79 year old [f__sex] who presents with [] Review of Systems: Review of Systems: Constitutional: Denies fever or chills. [] Eyes: Denies change in visual acuity. [] HENT: Denies nasal congestion or sore throat. [] Respiratory: Denies cough or shortness of breath. [] Cardiovascular: Denies chest pain or edema. [] GI: Denies abdominal pain, nausea, vomiting, bloody stools or diarrhea. [] : Denies dysuria. [] Musculoskeletal: Denies back pain or joint pain. [] Integument: Denies rash. [] Neurologic: Denies headache, focal weakness or sensory changes. [] Endocrine: Denies polyuria or polydipsia. [] Lymphatic: Denies swollen glands. [] Psychiatric: Denies depression or anxiety. [] Heart Score: Risk Factors: Risk Factors: DM, Current or recent (<one month) smoker, HTN, HLP, family history of CAD, obesity. Risk Scores: Score 0 - 3: 2.5% MACE over next 6 weeks - Discharge Home Score 4 - 6: 20.3% MACE over next 6 weeks - Admit for Clinical Observation Score 7 - 10: 72.7% MACE over next 6 weeks - Early Invasive Strategies Current Medications: Current Medications Medications (Trade) Dose Ordered Sig/Marielena Start Time Stop Time Status Last Admin Dose Admin Clonidine HCl (Catapres) 0.1 mg 1X ONCE 09/14/19 21:30 09/14/19 21:31 Labetalol HCl (Normodyne Iv Push) 10 mg 1X ONCE 09/14/19 21:30 09/14/19 21:31 Sodium Chloride 1,000 ml @ 1,000 mls/hr 1X ONCE 09/14/19 21:00 09/14/19 21:59 09/14/19 21:10 1,000 MLS/HR Allergies: Allergies: Allergies Coded Allergies Type Severity Reaction Last Updated Verified atorvastatin Allergy Intermediate 12/04/14 No codeine Allergy Intermediate 12/04/14 No doxycycline Allergy Intermediate 12/04/14 No levofloxacin Allergy Intermediate 12/05/14 No meperidine Allergy Intermediate 12/04/14 No nitrofurantoin Allergy Intermediate 12/04/14 No solifenacin Allergy Intermediate 12/04/14 No tetracycline Allergy Intermediate 12/04/14 No tramadol Allergy Intermediate 12/05/14 No Physical Exam: PE: Constitutional: Well developed, well nourished, no acute distress, non-toxic appearance. [] HENT: Normocephalic, atraumatic, bilateral external ears normal, oropharynx moist, no oral exudates, nose normal. [] Eyes: PERRLA, EOMI, conjunctiva normal, no discharge. [] Neck: Normal range of motion, no tenderness, supple, no stridor. [] Cardiovascular:Heart rate regular rhythm, no murmur [] Lungs & Thorax: Bilateral breath sounds clear to auscultation [] Abdomen: Bowel sounds normal, soft, no tenderness, no masses, no pulsatile masses. [] Skin: Warm, dry, no erythema, no rash. [] Back: No tenderness, no CVA tenderness. [] Extremities: No tenderness, no cyanosis, no clubbing, ROM intact, no edema. [] Neurologic: Alert and oriented X 3, normal motor function, normal sensory function, no focal deficits noted. [] Psychologic: Affect normal, judgement normal, mood normal. [] Current Patient Data: Labs: Laboratory Tests Test 09/14/19 20:45 White Blood Count 5.4 x10^3/uL (4.0-11.0) Red Blood Count 3.88 x10^6/uL (3.50-5.40) Hemoglobin 12.2 g/dL (12.0-15.5) Hematocrit 35.6 % (36.0-47.0) L Mean Corpuscular Volume 92 fL (79-100) Mean Corpuscular Hemoglobin 32 pg (25-35) Mean Corpuscular Hemoglobin Concent 34 g/dL (31-37) Red Cell Distribution Width 13.6 % (11.5-14.5) Platelet Count 264 x10^3/uL (140-400) Neutrophils (%) (Auto) 61 % (31-73) Lymphocytes (%) (Auto) 26 % (24-48) Monocytes (%) (Auto) 10 % (0-9) H Eosinophils (%) (Auto) 2 % (0-3) Basophils (%) (Auto) 1 % (0-3) Neutrophils # (Auto) 3.3 x10^3/uL (1.8-7.7) Lymphocytes # (Auto) 1.4 x10^3/uL (1.0-4.8) Monocytes # (Auto) 0.5 x10^3/uL (0.0-1.1) Eosinophils # (Auto) 0.1 x10^3/uL (0.0-0.7) Basophils # (Auto) 0.1 x10^3/uL (0.0-0.2) Sodium Level 141 mmol/L (136-145) Potassium Level 3.7 mmol/L (3.5-5.1) Chloride Level 102 mmol/L (98-107) Carbon Dioxide Level 27 mmol/L (21-32) Anion Gap 12 (6-14) Blood Urea Nitrogen 20 mg/dL (7-20) Creatinine 0.8 mg/dL (0.6-1.0) Estimated GFR (Cockcroft-Gault) 69.6 BUN/Creatinine Ratio 25 (6-20) H Glucose Level 118 mg/dL (70-99) H Calcium Level 9.0 mg/dL (8.5-10.1) Magnesium Level 2.1 mg/dL (1.8-2.4) Total Bilirubin 0.3 mg/dL (0.2-1.0) Aspartate Amino Transferase (AST) 21 U/L (15-37) Alanine Aminotransferase (ALT) 24 U/L (14-59) Alkaline Phosphatase 78 U/L (46-116) Troponin I Quantitative < 0.017 ng/mL (0.000-0.055) Total Protein 7.4 g/dL (6.4-8.2) Albumin 4.0 g/dL (3.4-5.0) Albumin/Globulin Ratio 1.2 (1.0-1.7) Lipase 92 U/L (73-393) Laboratory Tests 09/14/19 20:45 Laboratory Tests 09/14/19 20:45 EKG: EKG: @2051 NSR at 83bpm, NO ST elevation, QRS 94ms, QT/QTc 386/454ms Radiology/Procedures: Radiology/Procedures: PROCEDURE: CT HEAD WO CONTRAST CT scan of the head without contrast 09/14/2019 Clinical History: Headache. Technique: Unenhanced, contiguous, 5 mm axial sections were obtained through the head. One or more of the following individualized dose reduction techniques were utilized for this study: 1. Automated exposure control. 2. Adjustment of the mA and/or kV according to patient size. 3. Use of iterative reconstruction technique. Findings: Comparison study is dated 08/08/2019. There is generalized parenchymal atrophy. Areas of decreased attenuation are seen within the periventricular and subcortical white matter of both cerebral hemispheres consistent with areas of small vessel ischemic disease. No acute parenchymal abnormality is seen. No extra-axial fluid collection is noted. No skull fracture is seen. Impression: No acute intracranial abnormality is seen. Electronically signed by: Kwesi Sanz MD (09/14/2019 9:15 PM) [id number] Course & Med Decision Making: Course & Med Decision Making Pertinent Labs and Imaging studies reviewed. (See chart for details) [] Dragon Disclaimer: Dragon Disclaimer: This electronic medical record was generated, in whole or in part, using a voice recognition dictation system. Departure Departure Impression: Primary Impression: Hypertension Qualified Codes: I10 - Essential (primary) hypertension Additional Impression: Headache Qualified Codes: R51 - Headache Disposition: 01 HOME, SELF-CARE Condition: STABLE Referrals: SHELDON VALENCIA MD (PCP) Patient Instructions: Headache, FAQs, Hypertension Additional Instructions: Please take your hypertension medications as prescribed. Can and make an appointment to follow with your doctor as you may benefit from some adjustment of your medications. Scripts Clonidine Hcl (CLONIDINE HCL) 0.1 Mg Tablet 0.1 MG PO BID PRN for ELEVATED BP, SEE COMMENTS, #14 TAB Take as needed for Systolic blood pressure (upper number) greater than 170 and/or Diastolic blood pressure (lower number) greather than 105 Prov: ASHLEIGH MANCINI DO 09/14/19 ASHLEIGH MANCINI DO September 14, 2019 21:32
[2019-09-14 22:08] VITALS: BP 174/77
--- NOTE | 2019-09-15 06:32 | EKG ---
[facility] [address] [place] [address] Test Date: 2019-09-14 Test Time: 20:51:17 Pat Name: BRADEN YANG Department: Room: Gender: F [employer] Grinder: : 1940 Requested By: ASHLEIGH MANCINI Order Number: [id number] Reading MD: Osvaldo Adhikari MD Measurements Intervals [place] Rate: 83 P: 11 DE: 208 QRS: -4 QRSD: 94 T: 42 QT: 386 QTc: 454 Interpretive Statements SINUS RHYTHM NON-SPECIFIC ST/T CHANGES Electronically Signed On 09-16-2019 11:43:00 CDT by Osvaldo Adhikari MD
== END 2019-09-14 22:23 | disposition home or self-care (01) ==
LOC: ER 20:34
DX: I10 Essential (primary) hypertension (principal); R51 Headache; E78.00 Pure hypercholesterolemia, unspecified; Z90.89 Acquired absence of other organs; Z98.890 Other specified postprocedural states
CPT/HCPCS: 36415; 70450; 80053; 83690; 83735; 84484; 85025; 93005; 96374; 99285; J3490; J7030

== ENCOUNTER 2020-01-19 09:42 | Inpatient (IN) | payer MEDICARE ==
[~2020-01-19] VITALS: Ht 172.7 cm; Wt 64.7 kg
[~2020-01-19 09:42] MED LIST changes: -ASPI-612 PO; +ASPI-886 PO; +CLON0.1T PO
--- NOTE | 2020-01-19 10:08 | PHYS DOC ---
Past Medical History Past Medical History: High Cholesterol, Hypertension, Other Additional Past Medical Histor: urinary hesitancy, rheum. arth., herpes Past Surgical History: Tonsillectomy, Other Additional Past Surgical Histo: uterine prolapse Smoking Status: Never Smoker Alcohol Use: None Drug Use: None General Adult EDM: Chief Complaint: WEAKNESS/GENERALIZED HPI: HPI: Patient is a 79 year old female who has leg cramps several times overnight this morning when she was having a bowel movement felt very weak and clammy and broke a sweat and felt like she may pass out. Patient says she felt cold at that time. Patient feels back to normal now. Patient never had chest pain or shortness of breath patient denies any pain in her legs currently. Patient denies any recent illnesses such as fever cough vomiting or blood in her stools. Patient feels at her baseline currently Review of Systems: Review of Systems: Constitutional: Denies fever Eyes: Denies change in visual acuity. [] HENT: Denies nasal congestion or sore throat. [] Respiratory: Denies cough or shortness of breath. [] Cardiovascular: Denies chest pain or edema. [] GI: Denies abdominal pain, nausea, vomiting, bloody stools or diarrhea. [] : Denies dysuria. [] Musculoskeletal: Denies back pain or joint pain. [] Integument: Denies rash. [] Neurologic: Denies headache, but had generalized weakness Endocrine: Denies polyuria or polydipsia. [] Lymphatic: Denies swollen glands. [] Psychiatric: Denies depression or anxiety. [] Heart Score: Risk Factors: Risk Factors: DM, Current or recent (<one month) smoker, HTN, HLP, family history of CAD, obesity. Risk Scores: Score 0 - 3: 2.5% MACE over next 6 weeks - Discharge Home Score 4 - 6: 20.3% MACE over next 6 weeks - Admit for Clinical Observation Score 7 - 10: 72.7% MACE over next 6 weeks - Early Invasive Strategies Allergies: Allergies: Allergies Coded Allergies Type Severity Reaction Last Updated Verified atorvastatin Allergy Intermediate 12/04/14 No codeine Allergy Intermediate 12/04/14 No doxycycline Allergy Intermediate 12/04/14 No levofloxacin Allergy Intermediate 12/05/14 No meperidine Allergy Intermediate 12/04/14 No nitrofurantoin Allergy Intermediate 12/04/14 No solifenacin Allergy Intermediate 12/04/14 No tetracycline Allergy Intermediate 12/04/14 No tramadol Allergy Intermediate 12/05/14 No Physical Exam: PE: Constitutional: Well developed, well nourished, no acute distress, non-toxic appearance. [] HENT: Normocephalic, atraumatic, bilateral external ears normal, no trismus nose normal. [] Eyes: PERRLA, EOMI, conjunctiva normal, no discharge. [] Neck: Normal range of motion, no tenderness, supple, no stridor. [] Cardiovascular:Heart rate regular rhythm, peripheral pulses intact, cap refill brisk Lungs & Thorax: Bilateral breath sounds clear no respiratory distress Abdomen: Bowel sounds normal, soft, no tenderness, no masses, no pulsatile masses. [] Skin: Warm, dry, no erythema, no rash. [] Back: No tenderness, no CVA tenderness. [] Extremities: No tenderness, no cyanosis, no clubbing, ROM intact, no edema. [] Neurologic: Alert and oriented X 3, normal motor function, normal sensory function, no focal deficits noted. [] Psychologic: Affect normal, judgement normal, mood normal. [] Current Patient Data: Labs: Laboratory Tests Test 01/19/20 10:00 01/19/20 11:05 01/19/20 11:30 White Blood Count 5.5 x10^3/uL Red Blood Count 3.74 x10^6/uL Hemoglobin 11.9 g/dL Hematocrit 34.3 % Mean Corpuscular Volume 92 fL Mean Corpuscular Hemoglobin 32 pg Mean Corpuscular Hemoglobin Concent 35 g/dL Red Cell Distribution Width 13.4 % Platelet Count 255 x10^3/uL Neutrophils (%) (Auto) 77 % Lymphocytes (%) (Auto) 12 % Monocytes (%) (Auto) 8 % Eosinophils (%) (Auto) 2 % Basophils (%) (Auto) 1 % Neutrophils # (Auto) 4.2 x10^3/uL Lymphocytes # (Auto) 0.7 x10^3/uL Monocytes # (Auto) 0.5 x10^3/uL Eosinophils # (Auto) 0.1 x10^3/uL Basophils # (Auto) 0.1 x10^3/uL Prothrombin Time 13.5 SEC Prothromb Time International Ratio 1.1 Sodium Level 142 mmol/L Potassium Level 3.6 mmol/L Chloride Level 104 mmol/L Carbon Dioxide Level 28 mmol/L Anion Gap 10 Blood Urea Nitrogen 13 mg/dL Creatinine 0.6 mg/dL Estimated GFR (Cockcroft-Gault) 96.9 BUN/Creatinine Ratio 22 Glucose Level 102 mg/dL Calcium Level 9.2 mg/dL Total Bilirubin 0.3 mg/dL Aspartate Amino Transf (AST/SGOT) 27 U/L Alanine Aminotransferase (ALT/SGPT) 31 U/L Alkaline Phosphatase 74 U/L Troponin I Quantitative < 0.017 ng/mL BZ-Fac-E-Type Natriuretic Peptide 120 pg/mL Total Protein 7.8 g/dL Albumin 4.2 g/dL Albumin/Globulin Ratio 1.2 Lipase 72 U/L Urine Collection Type Unknown Urine Color Yellow Urine Clarity Clear Urine pH 8.0 Urine Specific [place] <=1.005 Urine Protein Negative mg/dL Urine Glucose (UA) Negative mg/dL Urine Ketones (Stick) Negative mg/dL Urine Blood Negative Urine Nitrite Negative Urine Bilirubin Negative Urine Urobilinogen Dipstick 0.2 mg/dL Urine Leukocyte Esterase Negative Urine RBC 0 /HPF Urine WBC 0 /HPF Urine Bacteria 0 /HPF Current Medications Medications (Trade) Dose Ordered Sig/Marielena Route PRN Reason Start Time Stop Time Status Last Admin Dose Admin Aspirin (Roberto Aspirin) 325 mg 1X ONCE PO 01/19/20 12:45 01/19/20 12:46 DC 01/19/20 13:23 Ondansetron HCl (Zofran) 4 mg PRN Q8HRS PRN IV NAUSEA/VOMITING 01/19/20 13:15 01/20/20 13:14 Vital Signs: Vital Signs Date Time Temp Pulse Resp B/P (MAP) Pulse Ox O2 Delivery O2 Flow Rate FiO2 01/19/20 12:00 74 18 100 01/19/20 11:30 80 20 100 01/19/20 11:00 80 20 99 01/19/20 10:30 70 17 99 01/19/20 10:00 76 32 99 01/19/20 09:50 97.8 76 20 169/76 (107) 99 97.8 EKG: EKG: [] EKG interpreted by me normal sinus rhythm with rate of 76 left axis deviation first-degree AV block, nonspecific ST changes Repeat EKG interpreted by me normal sinus rhythm with a rate of 78 left axis deviation inferior Q waves nonspecific ST changes Radiology/Procedures: Radiology/Procedures: [][facility] [address] [place] [address] IMAGING REPORT Signed PATIENT: BRADEN YANG ACCOUNT: [id number] : 1940 LOCATION: ER AGE: 79 SEX: F EXAM STATUS: PRE ER ORD. PHYSICIAN: UBALDO KAYE MD REASON: NEAR SYNCOPE PROCEDURE: PORTABLE CHEST 1V PORTABLE CHEST 1V Clinical indications: Near syncope. Comparison: August 08, 2019. Findings: Chronic interstitial lung disease or chronic bronchitis is seen. No acute lung infiltrate or pleural effusion or pulmonary edema or lung mass or pneumothorax is seen. The heart size, pulmonary vasculature, mediastinum and both emma are unremarkable. Impression: No acute radiographic abnormality is seen. Electronically signed by: Mauro Marina MD (01/19/2020 10:53 AM) [id number] DICTATED and SIGNED BY: MAURO MARINA MD DATE: 01/19/20 1053 Course & Med Decision Making: Course & Med Decision Making Pertinent Labs and Imaging studies reviewed. (See chart for details) [] On reassessment at 12:45 PM patient had some left arm pain. Due to the patient's near syncope and now left arm pain patient was placed in observation for cardiac evaluation. Discussed the case with Dr. Boykin who will admit. Jennifer Disclaimer: Jennifer Disclaimer: This electronic medical record was generated, in whole or in part, using a voice recognition dictation system. Departure Departure Impression: Primary Impression: Near syncope Additional Impression: Left arm pain Disposition: 01 HOME, SELF-CARE Admitting Physician: MEDINA (ANTWAN) Condition: STABLE Referrals: SHELDON VALENCIA MD (PCP) Justicifation of Admission Dx: Justifications for Admission: Justification of Admission Dx: Yes Comments: LEFT ARM PAIN, NEAR SYNCOPE UBALDO KAYE MD Jan 19, 2020 10:08
[2020-01-19 10:45] LABS: BASO # 0.1 x10^3/uL (0.0-0.2); BASO % 1 % (0-3); EOS # 0.1 x10^3/uL (0.0-0.7); EOS % 2 % (0-3); HEMATOCRIT 34.3 % (36.0-47.0); HEMOGLOBIN 11.9 g/dL (12.0-15.5); LYMPH # 0.7 x10^3/uL (1.0-4.8); LYMPH % 12 % (24-48); MEAN CORPUSCULAR HEMOGLOBIN 32 pg (25-35); MEAN CORPUSCULAR HGB CONC 35 g/dL (31-37); MEAN CORPUSCULAR VOLUME 92 fL (79-100); MONO # 0.5 x10^3/uL (0.0-1.1); MONO % 8 % (0-9); NEUT # 4.2 x10^3/uL (1.8-7.7); NEUT % 77 % (31-73); PLATELET COUNT 255 x10^3/uL (140-400); RED BLOOD COUNT 3.74 x10^6/uL (3.50-5.40); RED CELL DISTRIBUTION WIDTH 13.4 % (11.5-14.5); WHITE BLOOD COUNT 5.5 x10^3/uL (4.0-11.0)
--- NOTE | 2020-01-19 10:56 | RAD ---
PORTABLE CHEST 1V Clinical indications: Near syncope. Comparison: August 08, 2019. Findings: Chronic interstitial lung disease or chronic bronchitis is seen. No acute lung infiltrate or pleural effusion or pulmonary edema or lung mass or pneumothorax is seen. The heart size, pulmonary vasculature, mediastinum and both emma are unremarkable. Impression: No acute radiographic abnormality is seen. Electronically signed by: Marco Marina MD (01/19/2020 10:53 AM) [id number]
[2020-01-19 11:11] LABS: PROTHROMBIN TIME PATIENT 13.5 SEC (11.7-14.0)
[2020-01-19 11:43] LABS: CALCIUM 9.2 mg/dL (8.5-10.1); CREATININE 0.6 mg/dL (0.6-1.0); GFR 96.9; POTASSIUM 3.6 mmol/L (3.5-5.1)
[2020-01-19 11:51] LABS: ALBUMIN 4.2 g/dL (3.4-5.0); ALBUMIN/GLOBULIN RATIO 1.2 (1.0-1.7); TOTAL BILIRUBIN 0.3 mg/dL (0.2-1.0); TOTAL PROTEIN 7.8 g/dL (6.4-8.2)
[2020-01-19 12:06] LABS: BILIRUBIN,URINE NEGATIVE (NEG); CLARITY,URINE CLEAR; COLOR,URINE YELLOW; NITRITE,URINE NEGATIVE (NEG); PROTEIN,URINE NEGATIVE (NEG-TRACE); UROBILINOGEN,URINE 0.2 mg/dL (0.2 mg/dL)
[2020-01-19 12:17] LABS: BACTERIA,URINE 0 /HPF (0-FEW); RBC,URINE 0 /HPF (0-2); WBC,URINE 0 /HPF (0-4)
[2020-01-19] MEDS ORDERED: ASPIRIN 325 MG TABLET PO ONE (12:45)
--- NOTE | 2020-01-19 12:52 | PDOC1 ---
History and Physical Date of Admission Date of Admission DATE: 01/19/20 TIME: 12:52 Identification/Chief Complaint Chief Complaint SEEN IN ER WITH PRESYNCOPE, Atypical chest and left arm pain79 year old female who has leg cramps several times overnight this morning when she was having a bowel movement felt very weak and clammy and broke a sweat and felt like she may pass out. Patient says she felt cold at that time. Patient feels back to normal now. NOTES ATYPICAL chest pain or shortness of breath patient denies any pain in her legs currently. Patient denies any recent illnesses such as fever cough vomiting or blood in her stools. Patient feels at her baseline currently Ms Geiger is a 79yo F w/ PMHx High Cholesterol, UTIs, Rheumatoid arthritis, Anxiety disorder, Panic attacks , TROPONIN I NEG X 1 IN ER had out pt monitor by cardiology recently WAS " OK " BUT HAD CVA 08/2019 Past Medical History Past Medical History Past Medical History Past Medical History Past Medical History: High Cholesterol, Hypertension, Other Additional Past Medical Histor: urinary hesitancy, rheum. arth., herpes Past Surgical History: Tonsillectomy, Other Additional Past Surgical Histo: uterine prolapse Smoking Status: Never Smoker Alcohol Use: None Drug Use: None FHX HTN Cardiovascular: Hyperlipidemia Pulmonary: No pertinent hx GI: No pertinent hx Heme/Onc: No pertinent hx Hepatobiliary: No pertinent hx Psych: Anxiety, Panic Musculoskeletal: Osteoarthritis Rheumatologic: Rheumatoid arthritis Infectious disease: No pertinent hx Renal/: No pertinent hx Endocrine: No pertinent hx Past Surgical History Past Surgical History: No pertinent history Family History Family History: Hypertension Social History Smoke: No ALCOHOL: none Drugs: None Current Medications Current Medications Current Medications Aspirin (Roberto Aspirin) 325 mg 1X ONCE PO ; Start 01/19/20 at 12:45; Stop 01/19/20 at 12:46; Status DC Active Scripts Active Clonidine Hcl 0.1 Mg Tablet 0.1 Mg PO BID PRN Take as needed for Systolic blood pressure (upper number) greater than 170 and/or Diastolic blood pressure (lower number) greather than 105 Amlodipine Besylate 5 Mg Tablet 2.5 Mg PO DAILY 90 Days Aspirin Ec (Aspirin) 81 Mg Tablet.dr 162 Mg PO DAILY 90 Days Reported Xeljanz Xr (Tofacitinib Citrate) 11 Mg Tab.er.24h 11 Mg PO DAILY 30 Days Miralax (Polyethylene Glycol 3350) 17 Gm Powd.pack 1 Packet PO DAILY PRN Vitamin D (Cholecalciferol (Vitamin D3)) 2,000 Unit Capsule 1 Cap PO DAILY Prednisolone (Prednisolone, Micronized) 5 Gm Powder 12.5 Mg MC DAILY Colace (Docusate Sodium) 100 Mg Capsule 200 Cap PO BID Tums Ultra (Calcium Carbonate) 400 Mg Tab.chew 750 Mg PO DAILY Aspir 81 (Aspirin) 81 Mg Tablet.dr 81 Tab PO DAILY Sulfasalazine Dr (Sulfasalazine) 500 Mg Tablet.dr 1,000 Mg PO BID Uribel Capsule (Mth/Me Blue/Sod Phos/Phen/Hyos) 1 Each Capsule 1 Cap PO BID Allergies Allergies: Coded Allergies: atorvastatin (Unverified Allergy, Intermediate, 12/04/14) codeine (Unverified Allergy, Intermediate, 12/04/14) doxycycline (Unverified Allergy, Intermediate, 12/04/14) levofloxacin (Unverified Allergy, Intermediate, 12/05/14) meperidine (Unverified Allergy, Intermediate, 12/04/14) nitrofurantoin (Unverified Allergy, Intermediate, 12/04/14) solifenacin (Unverified Allergy, Intermediate, 12/04/14) tetracycline (Unverified Allergy, Intermediate, 12/04/14) tramadol (Unverified Allergy, Intermediate, 12/05/14) ROS Review of System Constitutional: Denies fever Eyes: Denies change in visual acuity. [] HENT: Denies nasal congestion or sore throat. [] Respiratory: Denies cough or shortness of breath. [] Cardiovascular: ATYPICAL chest pain , LEFT ARM discomfort . [] GI: Denies abdominal pain, nausea, vomiting, bloody stools or diarrhea. [] : Denies dysuria. [] Musculoskeletal: Denies back pain or joint pain. [] Integument: Denies rash. [] Neurologic: Denies headache, but had generalized weakness, "felt like she might pass out this AM " Endocrine: Denies polyuria or polydipsia. [] Lymphatic: Denies swollen glands. [] Psychiatric: anxiety. [] 14 pt ros otherwise neg Gastrointestinal: Yes Nausea Neurological: Yes Dizziness Skin: No Dry Skin, No Eczema, No Hair Changes, No Lumps, No Mole Changes, No Mottling, No Nail Changes, No Pruritus, No Rash, No Skin Lesion Changes, No Other, No Acne Physical Exam Physical Exam Constitutional: Well developed, well nourished, no acute distress, non-toxic appearance. [] HENT: Normocephalic, atraumatic, bilateral external ears normal, no trismus nose normal. [] Eyes: PERRLA, EOMI, conjunctiva normal, no discharge. [] Neck: Normal range of motion, no tenderness, supple, no stridor. [] Cardiovascular:Heart rate regular rhythm, peripheral pulses intact, cap refill brisk Lungs & Thorax: Bilateral breath sounds clear no respiratory distress Abdomen: Bowel sounds normal, soft, no tenderness, no masses, no pulsatile masses. [] Skin: Warm, dry, no erythema, no rash. [] Back: No tenderness, no CVA tenderness. [] Extremities: No tenderness, no cyanosis, no clubbing, ROM intact, no edema. [] Neurologic: Alert and oriented X 3, normal motor function, normal sensory func tion, no focal deficits noted. [] Psychologic: Affect normal, judgment normal, mood normal. [] General: Alert, Oriented X3, Cooperative, No acute distress HEENT: Atraumatic, PERRLA, EOMI, Mucous membr. moist/pink Lungs: Clear to auscultation, Normal air movement Heart: RRR, no thrills Breasts: Not examined Abdomen: Normal bowel sounds, Soft, No tenderness Rectal Exam: not examined PELVIC: Examination not indicated Extremities: No cyanosis Neuro: Normal speech, Cranial nerves 3-12 NL Vitals Vitals Vital Signs Date Time Temp Pulse Resp B/P (MAP) Pulse Ox O2 Delivery O2 Flow Rate FiO2 01/19/20 12:00 74 18 100 01/19/20 09:50 97.8 169/76 (107) 97.8 Labs Labs Laboratory Tests Test 01/19/20 10:00 01/19/20 11:05 01/19/20 11:30 White Blood Count 5.5 x10^3/uL (4.0-11.0) Red Blood Count 3.74 x10^6/uL (3.50-5.40) Hemoglobin 11.9 g/dL (12.0-15.5) Hematocrit 34.3 % (36.0-47.0) Mean Corpuscular Volume 92 fL (79-100) Mean Corpuscular Hemoglobin 32 pg (25-35) Mean Corpuscular Hemoglobin Concent 35 g/dL (31-37) Red Cell Distribution Width 13.4 % (11.5-14.5) Platelet Count 255 x10^3/uL (140-400) Neutrophils (%) (Auto) 77 % (31-73) Lymphocytes (%) (Auto) 12 % (24-48) Monocytes (%) (Auto) 8 % (0-9) Eosinophils (%) (Auto) 2 % (0-3) Basophils (%) (Auto) 1 % (0-3) Neutrophils # (Auto) 4.2 x10^3/uL (1.8-7.7) Lymphocytes # (Auto) 0.7 x10^3/uL (1.0-4.8) Monocytes # (Auto) 0.5 x10^3/uL (0.0-1.1) Eosinophils # (Auto) 0.1 x10^3/uL (0.0-0.7) Basophils # (Auto) 0.1 x10^3/uL (0.0-0.2) Prothrombin Time 13.5 SEC (11.7-14.0) Prothromb Time International Ratio 1.1 (0.8-1.1) Sodium Level 142 mmol/L (136-145) Potassium Level 3.6 mmol/L (3.5-5.1) Chloride Level 104 mmol/L (98-107) Carbon Dioxide Level 28 mmol/L (21-32) Anion Gap 10 (6-14) Blood Urea Nitrogen 13 mg/dL (7-20) Creatinine 0.6 mg/dL (0.6-1.0) Estimated GFR (Cockcroft-Gault) 96.9 BUN/Creatinine Ratio 22 (6-20) Glucose Level 102 mg/dL (70-99) Calcium Level 9.2 mg/dL (8.5-10.1) Total Bilirubin 0.3 mg/dL (0.2-1.0) Aspartate Amino Transf (AST/SGOT) 27 U/L (15-37) Alanine Aminotransferase (ALT/SGPT) 31 U/L (14-59) Alkaline Phosphatase 74 U/L (46-116) Troponin I Quantitative < 0.017 ng/mL (0.000-0.055) TY-Ytn-J-Type Natriuretic Peptide 120 pg/mL (0-449) Total Protein 7.8 g/dL (6.4-8.2) Albumin 4.2 g/dL (3.4-5.0) Albumin/Globulin Ratio 1.2 (1.0-1.7) Lipase 72 U/L (73-393) Urine Collection Type Unknown Urine Color Yellow Urine Clarity Clear Urine pH 8.0 (<5.0-8.0) Urine Specific Eliot <=1.005 (1.000-1.030) Urine Protein Negative mg/dL (NEG-TRACE) Urine Glucose (UA) Negative mg/dL (NEG) Urine Ketones (Stick) Negative mg/dL (NEG) Urine Blood Negative (NEG) Urine Nitrite Negative (NEG) Urine Bilirubin Negative (NEG) Urine Urobilinogen Dipstick 0.2 mg/dL (0.2 mg/dL) Urine Leukocyte Esterase Negative (NEG) Urine RBC 0 /HPF (0-2) Urine WBC 0 /HPF (0-4) Urine Bacteria 0 /HPF (0-FEW) Laboratory Tests Test 01/19/20 10:00 01/19/20 11:05 01/19/20 11:30 White Blood Count 5.5 x10^3/uL (4.0-11.0) Red Blood Count 3.74 x10^6/uL (3.50-5.40) Hemoglobin 11.9 g/dL (12.0-15.5) Hematocrit 34.3 % (36.0-47.0) Mean Corpuscular Volume 92 fL (79-100) Mean Corpuscular Hemoglobin 32 pg (25-35) Mean Corpuscular Hemoglobin Concent 35 g/dL (31-37) Red Cell Distribution Width 13.4 % (11.5-14.5) Platelet Count 255 x10^3/uL (140-400) Neutrophils (%) (Auto) 77 % (31-73) Lymphocytes (%) (Auto) 12 % (24-48) Monocytes (%) (Auto) 8 % (0-9) Eosinophils (%) (Auto) 2 % (0-3) Basophils (%) (Auto) 1 % (0-3) Neutrophils # (Auto) 4.2 x10^3/uL (1.8-7.7) Lymphocytes # (Auto) 0.7 x10^3/uL (1.0-4.8) Monocytes # (Auto) 0.5 x10^3/uL (0.0-1.1) Eosinophils # (Auto) 0.1 x10^3/uL (0.0-0.7) Basophils # (Auto) 0.1 x10^3/uL (0.0-0.2) Prothrombin Time 13.5 SEC (11.7-14.0) Prothromb Time International Ratio 1.1 (0.8-1.1) Sodium Level 142 mmol/L (136-145) Potassium Level 3.6 mmol/L (3.5-5.1) Chloride Level 104 mmol/L (98-107) Carbon Dioxide Level 28 mmol/L (21-32) Anion Gap 10 (6-14) Blood Urea Nitrogen 13 mg/dL (7-20) Creatinine 0.6 mg/dL (0.6-1.0) Estimated GFR (Cockcroft-Gault) 96.9 BUN/Creatinine Ratio 22 (6-20) Glucose Level 102 mg/dL (70-99) Calcium Level 9.2 mg/dL (8.5-10.1) Total Bilirubin 0.3 mg/dL (0.2-1.0) Aspartate Amino Transf (AST/SGOT) 27 U/L (15-37) Alanine Aminotransferase (ALT/SGPT) 31 U/L (14-59) Alkaline Phosphatase 74 U/L (46-116) Troponin I Quantitative < 0.017 ng/mL (0.000-0.055) ER-Fgb-B-Type Natriuretic Peptide 120 pg/mL (0-449) Total Protein 7.8 g/dL (6.4-8.2) Albumin 4.2 g/dL (3.4-5.0) Albumin/Globulin Ratio 1.2 (1.0-1.7) Lipase 72 U/L (73-393) Urine Collection Type Unknown Urine Color Yellow Urine Clarity Clear Urine pH 8.0 (<5.0-8.0) Urine Specific Eliot <=1.005 (1.000-1.030) Urine Protein Negative mg/dL (NEG-TRACE) Urine Glucose (UA) Negative mg/dL (NEG) Urine Ketones (Stick) Negative mg/dL (NEG) Urine Blood Negative (NEG) Urine Nitrite Negative (NEG) Urine Bilirubin Negative (NEG) Urine Urobilinogen Dipstick 0.2 mg/dL (0.2 mg/dL) Urine Leukocyte Esterase Negative (NEG) Urine RBC 0 /HPF (0-2) Urine WBC 0 /HPF (0-4) Urine Bacteria 0 /HPF (0-FEW) Images Images APPROVED REPORT EXAM: Two-dimensional and M-mode echocardiogram with Doppler and color Doppler. Other Information Quality : Fair INDICATION Elevated Troponin RISK FACTORS Hyperlipidemia 2D DIMENSIONS Left Atrium(2D) 3.0 (1.6-4.0cm) IVSd 0.7 (0.7-1.1cm) Aortic Root(2D) 2.7 (2.0-3.7cm) LVDd 4.4 (3.9-5.9cm) LVOT Diameter 2.1 (1.8-2.4cm) PWd 0.7 (0.7-1.1cm) LVDs 3.3 (2.5-4.0cm) FS (%) 26.7 % SV 46.8 ml LVEF(%) 55.0 (>50%) Aortic Valve AoV Peak Dima. 128.2cm/s AoV VTI 26.4cm AO Peak GR. 6.6mmHg LVOT Peak Dima. 114.7cm/s AO Mean GR. 4mmHg RD (VMAX) 2.96cm2 RD (VTI) 2.80cm2 Mitral Valve MV E Velocity 82.0cm/s MV DECEL TIME 193ms MV A Velocity 95.0cm/s E/A Ratio 0.9 Tricuspid Valve TR P. Velocity 236cm/s RAP ESTIMATE 3mmHg TR Peak Gr. 22mmHg RVSP 25mmHg Pulmonary Vein S1 Velocity 49.5cm/s D2 Velocity 40.0cm/s LEFT VENTRICLE The left ventricle is normal size. There is normal left ventricular wall thickness. The left ventricular systolic function is normal. The Ejection Fraction is 55-60%. There is normal LV segmental wall motion. Transmitral Doppler flow pattern is Grade I-abnormal relaxation pattern. RIGHT VENTRICLE The right ventricle is normal size. The right ventricular systolic function is normal. ATRIA The left atrium size is normal. The right atrium size is normal. The interatrial septum is intact with no evidence for an atrial septal defect or patent foramen ovale as noted on 2-D or Doppler imaging. AORTIC VALVE The aortic valve is calcified but opens well. Doppler and Color Flow revealed trace aortic regurgitation. There is no significant aortic valvular stenosis. MITRAL VALVE The mitral valve is calcified but opens well. There is no evidence of mitral valve prolapse. There is no mitral valve stenosis. Doppler and Color Flow revealed no mitral valve regurgitation noted. TRICUSPID VALVE The tricuspid valve is normal in structure and function. Doppler and Color Flow revealed trace tricuspid regurgitation. The PA pressure was estimated at 27 mmHg. There is no tricuspid valve stenosis. PULMONIC VALVE The pulmonic valve is not well visualized. Doppler and Color Flow revealed no pulmonic valvular regurgitation. There is no pulmonic valvular stenosis. GREAT VESSELS The aortic root is normal in size. The ascending aorta is not well seen. The IVC is normal in size and collapses >50% with inspiration. PERICARDIAL EFFUSION There is no evidence of significant pericardial effusion. Critical Notification Critical Value: No <Conclusion> The left ventricular systolic function is normal. The Ejection Fraction is 55-60%. There is normal LV segmental wall motion. Transmitral Doppler flow pattern is Grade I-abnormal relaxation pattern. Doppler and Color Flow revealed trace tricuspid regurgitation. The PA pressure was estimated at 27 mmHg. There is no evidence of significant pericardial effusion. Signed by : Abigail Dudley, Electronically Approved : 08/09/2019 15:26:39 DICTATED and SIGNED BY: ABIGAIL DUDLEY MD DATE: 08/09/19 1459 PATIENT: BRADEN GEIGER ACCOUNT: [id number] : 1940 LOCATION: [address] [place] [address] AGE: 78 SEX: F EXAM STATUS: ADM IN ORD. PHYSICIAN: STEFAN NUÑEZ MD REASON: TIA PROCEDURE: DOPPLER CAROTID BILAT Carotid Doppler dated 08/09/2019. Comparison none. Clinical Indication: Dizziness and lightheadedness. Weakness and numbness.. Findings: Grayscale, color flow and spectral waveform analysis was performed. Minimal luminal irregularity suggesting mild plaquing. No focal stenosis. The waveforms are within normal limits. Flow within the bilateral vertebral arteries is antegrade. Velocity measurements are as follows (centimeters per second ) Peak systolic velocity right left ICA 109 85 CCA 112 93 ECA 167 102 ICA/CCA ratio 1.0 0.9 Impression: No evidence of hemodynamically significant carotid stenosis. Stenosis calculations for carotid ultrasound studies are derived from validated velocity criteria which are known to correlate with the NASCET methodology. Electronically signed by: Shiv Tucker MD (08/09/2019 8:27 PM) [id number] DICTATED and SIGNED BY: SHIV TUCKER MD BRAIN MRI: recent 2019 Several foci of restricted diffusion in the left MCA distribution. No acute hemorrhage. Punctate focus of gradient susceptibility in the central malika consistent with chronic microhemorrhage. The ventricles are normal in size and configuration without hydrocephalus. Extensive FLAIR hyperintense signal in the subcortical and periventricular deep white matter, a nonspecific finding, most commonly seen with chronic small vessel ischemic disease. Mild generalized cerebral volume loss. The scalp and calvarium are normal. The pituitary and sella are normal. No Chiari malformation. Incompletely characterized degenerative spondylosis of the visualized upper cervical spine. The visualized orbits and globes are normal. The visualized paranasal sinuses are clear. The mastoid air cells are clear. Normal flow voids within the vertebral, basilar, and internal carotid arteries indicating patency. Date: 08/11/2019 12:46 PM Indication: Word finding difficulty, aphasia Comparison: CT head 08/08/2019. Technique: Multiplanar multisequence MRI of the brain was performed without intravenous contrast using the standard protocol. Findings: Several foci of restricted diffusion in the left MCA distribution. No acute hemorrhage. Punctate focus of gradient susceptibility in the central malika consistent with chronic microhemorrhage. The ventricles are normal in size and configuration without hydrocephalus. Extensive FLAIR hyperintense signal in the subcortical and periventricular deep white matter, a nonspecific finding, most commonly seen with chronic small vessel ischemic disease. Mild generalized cerebral volume loss. The scalp and calvarium are normal. The pituitary and sella are normal. No Chiari malformation. Incompletely characterized degenerative spondylosis of the visualized upper cervical spine. The visualized orbits and globes are normal. The visualized paranasal sinuses are clear. The mastoid air cells are clear. Normal flow voids within the vertebral, basilar, and internal carotid arteries indicating patency. IMPRESSION: 1. Several foci of acute infarct in the left MCA territory. No acute hemorrhage. 2. Extensive chronic small vessel ischemic disease and mild generalized cerebral volume loss.. Findings were called to the patient's nurse, Leslie, at 3:31 PM on 08/11/2019. FOR INTERNAL CODING PURPOSES RESULT CODE: (C) Electronically signed by: Ivonne Finnegan MD (08/11/2019 3:36 PM) [id number] DICTATED and SIGNED BY: IVONNE FINNEGAN MD DATE: 08/11/19 1536 VTE Prophylaxis Ordered VTE Prophylaxis Devices: Yes VTE Pharmacological Prophylaxi: Yes Assessment/Plan Assessment/Plan impression 1. near syncope =====ON 08/29 Several foci of acute infarct in the left MCA territory. SEEN ON mri head 08/29 2. Extensive chronic small vessel ischemic disease and mild generalized cerebral volume loss.. MRI 08/29 3. chest and left arm discomfort recent echo left ventricular systolic function is normal.Ejection Fraction is 55-60%. normal LV segmental wall motion.Doppler flow pattern is Grade I-abnormal relaxation pattern.trace tricuspid regurgitation. 4. VASOVAGAL type symptoms 5. hypertension 6. possible TIA 7. ANXIETY DISORDER 8, Hyperlipidemia plan admit cardiology consult neurology consult cvc bed TREND TROPONIN I neurochecks q 4 hrs dvt prophylaxis home meds ASA NORVASC D./W ER Justifications for Admission Other Justification KRISTEL MONCADA MD Jan 19, 2020 12:52
[2020-01-19] MEDS ORDERED: ONDANSETRON PF 4 MG/2 ML VIAL. IV PRN ×2 (13:15→15:15)
[2020-01-19] MEDS ORDERED: POLYETHYLENE GLYCOL 3350 17 GM PACKET. PO PRN (15:00)
[2020-01-19] MEDS ORDERED: DOCUSATE SODIUM 100 MG CAPSULE. PO PRN (15:15)
[2020-01-19] MEDS ORDERED: 0.9 % SODIUM CHLORIDE 10 ML DISP.SYRIN. IV PRN (15:15)
[2020-01-19] MEDS ORDERED: cloNIDine HCL 0.1 MG TABLET PO PRN (15:15)
[2020-01-19] MEDS ORDERED: ENOXAPARIN 40 MG/0.4 ML SYRINGE. SQ SCH (15:15)
[2020-01-19] MEDS ORDERED: ALBUTEROL SULFATE 2.5 MG/3 ML NEBU. NEB PRN (15:15)
[2020-01-19] MEDS ORDERED: CALCIUM CARBONATE 500 MG TAB.CHEW PO SCH ×2 (15:15→21:00)
[2020-01-19] MEDS ORDERED: LORazepam 0.5 MG TABLET PO PRN (15:15)
[2020-01-19] MEDS ORDERED: ACETAMINOPHEN 325 MG TABLET. PO PRN (15:15)
[2020-01-19] MEDS ORDERED: MAG HYDROX/ALUMINUM HYD/SIMETH 30 ML ORAL.SUSP PO PRN (15:15)
[2020-01-19] MEDS ORDERED: SODIUM PHOSPHATES 19/7GM 133 ML ENEMA. PR PRN (15:15)
[2020-01-19] MEDS ORDERED: guaiFENesin ORAL 200 MG/10 ML LIQUID. PO PRN (15:15)
--- NOTE | 2020-01-19 16:02 | EKG ---
[facility] [address] [place] [address] Test Date: 2020-01-19 Test Time: 12:48:27 Pat Name: BRADEN YANG Department: Room: Gender: F Gate Watch: : 1940 Requested By: UBALDO KAYE Order Number: [id number] Reading MD: Measurements Intervals [place] Rate: 78 P: 9 AR: 208 QRS: -22 QRSD: 92 T: 35 QT: 418 QTc: 480 Interpretive Statements SINUS RHYTHM LEFTWARD AXIS QRS(T) CONTOUR ABNORMALITY CONSIDER INFERIOR INFARCT POSSIBLY ABNORMAL ECG RI6.02 Compared to ECG 01/19/2020 09:53:46 First degree AV block no longer present Myocardial infarct finding still present
--- NOTE | 2020-01-19 16:20 | PDOC2 ---
NEUROLOGY CONSULT Date of Service DOS: DATE: 01/19/20 TIME: 16:14 Reason for Consult Reason for Consult: Near syncope Referring Physician Referring Physician: Dr. Boykin PCP: Dr. Sellers Source Source: Chart review, Patient History of Present Illness History of Present Illness The patient is a 79-year-old right-handed female who had some leg cramps this morning, got up to the bathroom and had a bowel movement, then felt diaphoretic and lightheaded but did not lose consciousness. She feels fine now. There was no headache, diplopia, dysphagia, dysarthria, numbness, weakness, or cognitive change. 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 Past Medical History Cardiovascular: Hyperlipidemia Pulmonary: Pneumonia CENTRAL NERVOUS SYSTEM: CVA, Other (Headache) GI: Constipation Psych: Anxiety, Panic Musculoskeletal: low back pain, Osteoarthritis, Other (Neck pain) Renal/: UTI, Urinary Incontinence Endocrine: Osteoporosis Past Surgical History Past Surgical History: No pertinent history Family History Family History: Cancer Social History Social History , retired, no alcohol or tobacco Current Medications Current Medications Current Medications Aspirin (Roberto Aspirin) 325 mg 1X ONCE PO Last administered on 01/19/20at 13:23; Start 01/19/20 at 12:45; Stop 01/19/20 at 12:46; Status DC Ondansetron HCl (Zofran) 4 mg PRN Q8HRS PRN IV NAUSEA/VOMITING; Start 01/19/20 at 13:15; Stop 01/20/20 at 13:14 Amlodipine Besylate (Norvasc) 2.5 mg DAILY PO ; Start 01/20/20 at 09:00 Aspirin (Ecotrin) 162 mg DAILY PO ; Start 01/20/20 at 09:00 Docusate Sodium (Colace) 200 mg BID PO ; Start 01/19/20 at 21:00 Polyethylene Glycol (miraLAX PACKET) 17 gm DAILY PRN PO CONSTIPATION; Start 01/19/20 at 15:00 Calcium Carbonate/ Glycine (Tums) 750 mg DAILY PO ; Start 01/19/20 at 15:15 Vitamin D (Vitamin D3) 2,000 unit DAILY PO ; Start 01/20/20 at 09:00 Sodium Chloride (Normal Saline Flush) 3 ml QSHIFT PRN IV AFTER MEDS AND BLOOD DRAWS; Start 01/19/20 at 15:15 Sodium Chloride 1,000 ml @ 60 mls/hr [id number] IV ; Start 01/19/20 at 15:03 Ondansetron HCl (Zofran) 4 mg PRN Q4HRS PRN IV NAUSEA/VOMITING; Start 01/19/20 at 15:15 Acetaminophen (Tylenol) 650 mg PRN Q4HRS PRN PO TEMP OVER 100.4F OR MILD PAIN; Start 01/19/20 at 15:15 Al Hydroxide/Mg Hydroxide (Mylanta Plus Xs) 30 ml PRN DAILY PRN PO HEARTBURN / GAS; Start 01/19/20 at 15:15 Clonidine HCl (Catapres) 0.1 mg PRN Q6HRS PRN PO SBP>160 OR DBP>90; Start 01/19/20 at 15:15 Sodium Monofluorophosphate (Fleet Adult) 133 ml PRN DAILY PRN ME CONSTIPATION; Start 01/19/20 at 15:15 Docusate Sodium (Colace) 100 mg PRN BID PRN PO HARD STOOLS; Start 01/19/20 at 15:15 Albuterol Sulfate (Ventolin Neb Soln) 2.5 mg PRN Q4HRS PRN NEB SHORTNESS OF BREATH; Start 01/19/20 at 15:15 Guaifenesin (Robitussin) 200 mg PRN Q4HRS PRN PO COUGH; Start 01/19/20 at 15:15 Lorazepam (Ativan) 0.5 mg PRN Q4HRS PRN PO ANXIETY / AGITATION; Start 01/19/20 at 15:15 Enoxaparin Sodium (Lovenox 40mg Syringe) 40 mg Q24H SQ ; Start 01/19/20 at 15:15 Active Scripts Active Clonidine Hcl 0.1 Mg Tablet 0.1 Mg PO BID PRN Take as needed for Systolic blood pressure (upper number) greater than 170 and/or Diastolic blood pressure (lower number) greather than 105 Amlodipine Besylate 5 Mg Tablet 2.5 Mg PO DAILY 90 Days Aspirin Ec (Aspirin) 81 Mg Tablet.dr 162 Mg PO DAILY 90 Days Reported Xeljanz Xr (Tofacitinib Citrate) 11 Mg Tab.er.24h 11 Mg PO DAILY 30 Days Miralax (Polyethylene Glycol 3350) 17 Gm Powd.pack 1 Packet PO DAILY PRN Vitamin D (Cholecalciferol (Vitamin D3)) 2,000 Unit Capsule 1 Cap PO DAILY Prednisolone (Prednisolone, Micronized) 5 Gm Powder 12.5 Mg MC DAILY Colace (Docusate Sodium) 100 Mg Capsule 200 Cap PO BID Tums Ultra (Calcium Carbonate) 400 Mg Tab.chew 750 Mg PO DAILY Aspir 81 (Aspirin) 81 Mg Tablet.dr 81 Tab PO DAILY Sulfasalazine Dr (Sulfasalazine) 500 Mg Tablet.dr 1,000 Mg PO BID Uribel Capsule (Mth/Me Blue/Sod Phos/Phen/Hyos) 1 Each Capsule 1 Cap PO BID Allergies Allergies: Coded Allergies: atorvastatin (Unverified Allergy, Intermediate, 12/04/14) codeine (Unverified Allergy, Intermediate, 12/04/14) doxycycline (Unverified Allergy, Intermediate, 12/04/14) levofloxacin (Unverified Allergy, Intermediate, 12/05/14) meperidine (Unverified Allergy, Intermediate, 12/04/14) nitrofurantoin (Unverified Allergy, Intermediate, 12/04/14) solifenacin (Unverified Allergy, Intermediate, 12/04/14) tetracycline (Unverified Allergy, Intermediate, 12/04/14) tramadol (Unverified Allergy, Intermediate, 12/05/14) ROS Review of System Negative for fever, chills, weight loss, shortness of breath, chest pain, indigestion, hematochezia, melena, and dysuria. Full 14-point review of systems is negative. Physical Exam Physical Examination General: Well-developed, well-nourished white female in no acute distress HEENT: Normocephalic andatraumatic. Temporal arteriespulsatile and nontender. Neck: Supple without bruit, no meningismus Musculoskeletal: Stability:see neurologic. Gait exam:see neurologic. Tone:see neurologic.Strength:see neurologic. Neurological: Mental Status:intact, orientation, memory, attention span/concentration, language, fund of knowledge normal. Cranial Nerves:Pupils equal and reactive to light, extraocular movements areintact, visual ling are full to confrontation. Facial sensation is normal. There is no facial asymmetry. Vestibulo-ocular reflex is intact. Palate elevates and tongue protrudes in midline. All other cranial related problems are negative except as mentioned before.Reflexes:2+ and symmetric with flexor plantar responses. Motor:5/5 strength with normal tone and bulk. Coordination:Finger-nose finger and eapy-sr-lofl testing are normal. Rapid alternating movements and fine finger movements are intact. Gait:Not tested. Sensory:Normal pinprick, vibration, light touch, proprioception. Vitals VITALS Vital Signs Date Time Temp Pulse Resp B/P (MAP) Pulse Ox O2 Delivery O2 Flow Rate FiO2 01/19/20 14:50 80 20 100 01/19/20 09:50 97.8 169/76 (107) 97.8 Labs Labs Laboratory Tests Test 01/19/20 10:00 01/19/20 11:05 01/19/20 11:30 White Blood Count 5.5 x10^3/uL (4.0-11.0) Red Blood Count 3.74 x10^6/uL (3.50-5.40) Hemoglobin 11.9 g/dL (12.0-15.5) Hematocrit 34.3 % (36.0-47.0) Mean Corpuscular Volume 92 fL (79-100) Mean Corpuscular Hemoglobin 32 pg (25-35) Mean Corpuscular Hemoglobin Concent 35 g/dL (31-37) Red Cell Distribution Width 13.4 % (11.5-14.5) Platelet Count 255 x10^3/uL (140-400) Neutrophils (%) (Auto) 77 % (31-73) Lymphocytes (%) (Auto) 12 % (24-48) Monocytes (%) (Auto) 8 % (0-9) Eosinophils (%) (Auto) 2 % (0-3) Basophils (%) (Auto) 1 % (0-3) Neutrophils # (Auto) 4.2 x10^3/uL (1.8-7.7) Lymphocytes # (Auto) 0.7 x10^3/uL (1.0-4.8) Monocytes # (Auto) 0.5 x10^3/uL (0.0-1.1) Eosinophils # (Auto) 0.1 x10^3/uL (0.0-0.7) Basophils # (Auto) 0.1 x10^3/uL (0.0-0.2) Prothrombin Time 13.5 SEC (11.7-14.0) Prothromb Time International Ratio 1.1 (0.8-1.1) Sodium Level 142 mmol/L (136-145) Potassium Level 3.6 mmol/L (3.5-5.1) Chloride Level 104 mmol/L (98-107) Carbon Dioxide Level 28 mmol/L (21-32) Anion Gap 10 (6-14) Blood Urea Nitrogen 13 mg/dL (7-20) Creatinine 0.6 mg/dL (0.6-1.0) Estimated GFR (Cockcroft-Gault) 96.9 BUN/Creatinine Ratio 22 (6-20) Glucose Level 102 mg/dL (70-99) Calcium Level 9.2 mg/dL (8.5-10.1) Total Bilirubin 0.3 mg/dL (0.2-1.0) Aspartate Amino Transf (AST/SGOT) 27 U/L (15-37) Alanine Aminotransferase (ALT/SGPT) 31 U/L (14-59) Alkaline Phosphatase 74 U/L (46-116) Troponin I Quantitative < 0.017 ng/mL (0.000-0.055) NV-Hhz-E-Type Natriuretic Peptide 120 pg/mL (0-449) Total Protein 7.8 g/dL (6.4-8.2) Albumin 4.2 g/dL (3.4-5.0) Albumin/Globulin Ratio 1.2 (1.0-1.7) Lipase 72 U/L (73-393) Urine Collection Type Unknown Urine Color Yellow Urine Clarity Clear Urine pH 8.0 (<5.0-8.0) Urine Specific [place] <=1.005 (1.000-1.030) Urine Protein Negative mg/dL (NEG-TRACE) Urine Glucose (UA) Negative mg/dL (NEG) Urine Ketones (Stick) Negative mg/dL (NEG) Urine Blood Negative (NEG) Urine Nitrite Negative (NEG) Urine Bilirubin Negative (NEG) Urine Urobilinogen Dipstick 0.2 mg/dL (0.2 mg/dL) Urine Leukocyte Esterase Negative (NEG) Urine RBC 0 /HPF (0-2) Urine WBC 0 /HPF (0-4) Urine Bacteria 0 /HPF (0-FEW) Laboratory Tests Test 01/19/20 10:00 01/19/20 11:05 01/19/20 11:30 White Blood Count 5.5 x10^3/uL (4.0-11.0) Red Blood Count 3.74 x10^6/uL (3.50-5.40) Hemoglobin 11.9 g/dL (12.0-15.5) Hematocrit 34.3 % (36.0-47.0) Mean Corpuscular Volume 92 fL (79-100) Mean Corpuscular Hemoglobin 32 pg (25-35) Mean Corpuscular Hemoglobin Concent 35 g/dL (31-37) Red Cell Distribution Width 13.4 % (11.5-14.5) Platelet Count 255 x10^3/uL (140-400) Neutrophils (%) (Auto) 77 % (31-73) Lymphocytes (%) (Auto) 12 % (24-48) Monocytes (%) (Auto) 8 % (0-9) Eosinophils (%) (Auto) 2 % (0-3) Basophils (%) (Auto) 1 % (0-3) Neutrophils # (Auto) 4.2 x10^3/uL (1.8-7.7) Lymphocytes # (Auto) 0.7 x10^3/uL (1.0-4.8) Monocytes # (Auto) 0.5 x10^3/uL (0.0-1.1) Eosinophils # (Auto) 0.1 x10^3/uL (0.0-0.7) Basophils # (Auto) 0.1 x10^3/uL (0.0-0.2) Prothrombin Time 13.5 SEC (11.7-14.0) Prothromb Time International Ratio 1.1 (0.8-1.1) Sodium Level 142 mmol/L (136-145) Potassium Level 3.6 mmol/L (3.5-5.1) Chloride Level 104 mmol/L (98-107) Carbon Dioxide Level 28 mmol/L (21-32) Anion Gap 10 (6-14) Blood Urea Nitrogen 13 mg/dL (7-20) Creatinine 0.6 mg/dL (0.6-1.0) Estimated GFR (Cockcroft-Gault) 96.9 BUN/Creatinine Ratio 22 (6-20) Glucose Level 102 mg/dL (70-99) Calcium Level 9.2 mg/dL (8.5-10.1) Total Bilirubin 0.3 mg/dL (0.2-1.0) Aspartate Amino Transf (AST/SGOT) 27 U/L (15-37) Alanine Aminotransferase (ALT/SGPT) 31 U/L (14-59) Alkaline Phosphatase 74 U/L (46-116) Troponin I Quantitative < 0.017 ng/mL (0.000-0.055) VB-Ski-A-Type Natriuretic Peptide 120 pg/mL (0-449) Total Protein 7.8 g/dL (6.4-8.2) Albumin 4.2 g/dL (3.4-5.0) Albumin/Globulin Ratio 1.2 (1.0-1.7) Lipase 72 U/L (73-393) Urine Collection Type Unknown Urine Color Yellow Urine Clarity Clear Urine pH 8.0 (<5.0-8.0) Urine Specific [place] <=1.005 (1.000-1.030) Urine Protein Negative mg/dL (NEG-TRACE) Urine Glucose (UA) Negative mg/dL (NEG) Urine Ketones (Stick) Negative mg/dL (NEG) Urine Blood Negative (NEG) Urine Nitrite Negative (NEG) Urine Bilirubin Negative (NEG) Urine Urobilinogen Dipstick 0.2 mg/dL (0.2 mg/dL) Urine Leukocyte Esterase Negative (NEG) Urine RBC 0 /HPF (0-2) Urine WBC 0 /HPF (0-4) Urine Bacteria 0 /HPF (0-FEW) Assessment/Plan Assessment/Plan Impression: Vasovagal presyncope related to defecation and leg pain, symptoms now resolved History 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 VIKAS LEROY MD Jan 19, 2020 16:20
[2020-01-19 16:22] VITALS: BP 141/65
[2020-01-19] MEDS ORDERED: CRESTOR5 MG PO (17:49)
[2020-01-19] MEDS ORDERED: PSYL0.5215 PO (17:49)
[2020-01-19] MEDS ORDERED: AMLO5TAB10 PO (17:49)
[2020-01-19] MEDS ORDERED: LEFL10TA13 PO (17:54)
[2020-01-19] MEDS ORDERED: ACET325T9 PO (17:54)
[2020-01-19] MEDS ORDERED: MULT-658 PO (17:54)
[2020-01-19] MEDS: amLODIPine BESYLATE 5 MG TABLET PO SCH (18:00)
[2020-01-19] MEDS: IV NORMAL SALINE 1000ML BAG 1,000 ML IV SCH (18:23)
[2020-01-19 19:49] VITALS: BP 149/62
[2020-01-19] MEDS: DOCUSATE SODIUM 100 MG CAPSULE. PO SCH (21:02)
[2020-01-19 23:00] VITALS: BP 160/70
--- NOTE | 2020-01-20 02:48 | EKG ---
[facility] [address] [place] [address] Test Date: 2020-01-19 Test Time: 09:53:46 Pat Name: BRADEN YANG Department: Room: Gender: F Gas Manager: : 1940 Requested By: UBALDO KAYE Order Number: [id number] Reading MD: Measurements Intervals [place] Rate: 76 P: 59 WA: 220 QRS: -20 QRSD: 96 T: 38 QT: 414 QTc: 470 Interpretive Statements SINUS RHYTHM PROLONGED WA INTERVAL LEFTWARD AXIS QRS(T) CONTOUR ABNORMALITY CONSISTENT WITH INFERIOR INFARCT PROBABLY OLD ABNORMAL ECG RI6.02 No previous ECG available for comparison
[2020-01-20 03:16] VITALS: BP 159/73
[2020-01-20 07:00] VITALS: BP 146/80
[2020-01-20] MEDS: IV NORMAL SALINE 1000ML BAG 1,000 ML IV SCH (07:43)
[2020-01-20] MEDS: DOCUSATE SODIUM 100 MG CAPSULE. PO SCH (08:45)
[2020-01-20] MEDS: amLODIPine BESYLATE 5 MG TABLET PO SCH (08:45)
[2020-01-20] MEDS ORDERED: ASPIRIN ENTERIC COATED 81 MG TABLET.DR. PO SCH (09:00)
[2020-01-20] MEDS ORDERED: CHOLECALCIFEROL (VITAMIN D3) 1,000 UNIT TABLET PO SCH (09:00)
[2020-01-20] MEDS ORDERED: amLODIPine BESYLATE 5 MG TABLET PO SCH (09:00)
--- NOTE | 2020-01-20 10:30 | PDOC3 ---
Discharge Summary Visit Information Date of Admission: Jan 19, 2020 Date of Discharge: Jan 20, 2020 Admitting Diagnosis Comment: 1. near syncope =====ON 08/29 Several foci of acute infarct in the left MCA territory. SEEN ON mri head 08/29 2. Extensive chronic small vessel ischemic disease and mild generalized cerebral volume loss.. MRI 08/29 3. chest and left arm discomfort recent echo left ventricular systolic function is normal.Ejection Fraction is 55-60%. normal LV segmental wall motion.Doppler flow pattern is Grade I-abnormal relaxation pattern.trace tricuspid regurgitation. 4. VASOVAGAL type symptoms 5. hypertension 6. possible TIA 7. ANXIETY DISORDER 8, Hyperlipidemia Final Diagnosis Problems Medical Problems: (1) Left arm pain Status: Acute (2) Near syncope resolved, no acute events during hospital stay Status: Acute 1. near syncope =====ON 08/29 Several foci of acute infarct in the left MCA territory. SEEN ON mri head 08/29 2. Extensive chronic small vessel ischemic disease and mild generalized cerebral volume loss.. MRI 08/29 3. chest and left arm discomfort recent echo left ventricular systolic function is normal.Ejection Fraction is 55-60%. normal LV segmental wall motion.Doppler flow pattern is Grade I-abnormal relaxation pattern.trace tricuspid regurgitation. 4. VASOVAGAL type symptoms 5. hypertension 6. possible TIA 7. ANXIETY DISORDER 8, Hyperlipidemia 9. History of rheumatoid arthritis Brief Hospital Course Allergies Allergies Coded Allergies Type Severity Reaction Last Updated Verified atorvastatin Allergy Intermediate 12/04/14 No codeine Allergy Intermediate 12/04/14 No doxycycline Allergy Intermediate 12/04/14 No levofloxacin Allergy Intermediate 12/05/14 No meperidine Allergy Intermediate 12/04/14 No nitrofurantoin Allergy Intermediate 12/04/14 No solifenacin Allergy Intermediate 12/04/14 No tetracycline Allergy Intermediate 12/04/14 No tramadol Allergy Intermediate 12/05/14 No Vital Signs Vital Signs Date Time Temp Pulse Resp B/P (MAP) Pulse Ox O2 Delivery O2 Flow Rate FiO2 01/20/20 08:45 85 01/20/20 08:00 Room Air 01/20/20 07:00 98.4 20 146/80 (102) 97 98.4 Lab Results Laboratory Tests Test 01/19/20 10:00 01/19/20 11:05 01/19/20 11:30 01/19/20 16:05 White Blood Count 5.5 x10^3/uL (4.0-11.0) Red Blood Count 3.74 x10^6/uL (3.50-5.40) Hemoglobin 11.9 g/dL (12.0-15.5) Hematocrit 34.3 % (36.0-47.0) Mean Corpuscular Volume 92 fL (79-100) Mean Corpuscular Hemoglobin 32 pg (25-35) Mean Corpuscular Hemoglobin Concent 35 g/dL (31-37) Red Cell Distribution Width 13.4 % (11.5-14.5) Platelet Count 255 x10^3/uL (140-400) Neutrophils (%) (Auto) 77 % (31-73) Lymphocytes (%) (Auto) 12 % (24-48) Monocytes (%) (Auto) 8 % (0-9) Eosinophils (%) (Auto) 2 % (0-3) Basophils (%) (Auto) 1 % (0-3) Neutrophils # (Auto) 4.2 x10^3/uL (1.8-7.7) Lymphocytes # (Auto) 0.7 x10^3/uL (1.0-4.8) Monocytes # (Auto) 0.5 x10^3/uL (0.0-1.1) Eosinophils # (Auto) 0.1 x10^3/uL (0.0-0.7) Basophils # (Auto) 0.1 x10^3/uL (0.0-0.2) Prothrombin Time 13.5 SEC (11.7-14.0) Prothromb Time International Ratio 1.1 (0.8-1.1) Sodium Level 142 mmol/L (136-145) Potassium Level 3.6 mmol/L (3.5-5.1) Chloride Level 104 mmol/L (98-107) Carbon Dioxide Level 28 mmol/L (21-32) Anion Gap 10 (6-14) Blood Urea Nitrogen 13 mg/dL (7-20) Creatinine 0.6 mg/dL (0.6-1.0) Estimated GFR (Cockcroft-Gault) 96.9 BUN/Creatinine Ratio 22 (6-20) Glucose Level 102 mg/dL (70-99) Calcium Level 9.2 mg/dL (8.5-10.1) Total Bilirubin 0.3 mg/dL (0.2-1.0) Aspartate Amino Transf (AST/SGOT) 27 U/L (15-37) Alanine Aminotransferase (ALT/SGPT) 31 U/L (14-59) Alkaline Phosphatase 74 U/L (46-116) Troponin I Quantitative < 0.017 ng/mL (0.000-0.055) < 0.017 ng/mL (0.000-0.055) CJ-Grq-D-Type Natriuretic Peptide 120 pg/mL (0-449) Total Protein 7.8 g/dL (6.4-8.2) Albumin 4.2 g/dL (3.4-5.0) Albumin/Globulin Ratio 1.2 (1.0-1.7) Lipase 72 U/L (73-393) Urine Collection Type Unknown Urine Color Yellow Urine Clarity Clear Urine pH 8.0 (<5.0-8.0) Urine Specific [place] <=1.005 (1.000-1.030) Urine Protein Negative mg/dL (NEG-TRACE) Urine Glucose (UA) Negative mg/dL (NEG) Urine Ketones (Stick) Negative mg/dL (NEG) Urine Blood Negative (NEG) Urine Nitrite Negative (NEG) Urine Bilirubin Negative (NEG) Urine Urobilinogen Dipstick 0.2 mg/dL (0.2 mg/dL) Urine Leukocyte Esterase Negative (NEG) Urine RBC 0 /HPF (0-2) Urine WBC 0 /HPF (0-4) Urine Bacteria 0 /HPF (0-FEW) Test 01/19/20 19:30 Troponin I Quantitative < 0.017 ng/mL (0.000-0.055) Laboratory Tests Test 01/19/20 11:05 01/19/20 11:30 01/19/20 16:05 01/19/20 19:30 Sodium Level 142 mmol/L (136-145) Potassium Level 3.6 mmol/L (3.5-5.1) Chloride Level 104 mmol/L (98-107) Carbon Dioxide Level 28 mmol/L (21-32) Anion Gap 10 (6-14) Blood Urea Nitrogen 13 mg/dL (7-20) Creatinine 0.6 mg/dL (0.6-1.0) Estimated GFR (Cockcroft-Gault) 96.9 BUN/Creatinine Ratio 22 (6-20) Glucose Level 102 mg/dL (70-99) Calcium Level 9.2 mg/dL (8.5-10.1) Total Bilirubin 0.3 mg/dL (0.2-1.0) Aspartate Amino Transf (AST/SGOT) 27 U/L (15-37) Alanine Aminotransferase (ALT/SGPT) 31 U/L (14-59) Alkaline Phosphatase 74 U/L (46-116) Troponin I Quantitative < 0.017 ng/mL (0.000-0.055) < 0.017 ng/mL (0.000-0.055) < 0.017 ng/mL (0.000-0.055) GP-Wzj-O-Type Natriuretic Peptide 120 pg/mL (0-449) Total Protein 7.8 g/dL (6.4-8.2) Albumin 4.2 g/dL (3.4-5.0) Albumin/Globulin Ratio 1.2 (1.0-1.7) Lipase 72 U/L (73-393) Urine Collection Type Unknown Urine Color Yellow Urine Clarity Clear Urine pH 8.0 (<5.0-8.0) Urine Specific [place] <=1.005 (1.000-1.030) Urine Protein Negative mg/dL (NEG-TRACE) Urine Glucose (UA) Negative mg/dL (NEG) Urine Ketones (Stick) Negative mg/dL (NEG) Urine Blood Negative (NEG) Urine Nitrite Negative (NEG) Urine Bilirubin Negative (NEG) Urine Urobilinogen Dipstick 0.2 mg/dL (0.2 mg/dL) Urine Leukocyte Esterase Negative (NEG) Urine RBC 0 /HPF (0-2) Urine WBC 0 /HPF (0-4) Urine Bacteria 0 /HPF (0-FEW) Brief Hospital Course History and Physical Date of Admission Date of Admission DATE: 01/19/20 TIME: 12:52 Identification/Chief Complaint Chief Complaint SEEN IN ER WITH PRESYNCOPE, Atypical chest and left arm pain79 year old female who has leg cramps several times overnight this morning when she was having a bowel movement felt very weak and clammy and broke a sweat and felt like she may pass out. Patient says she felt cold at that time. Patient feels back to normal now. NOTES ATYPICAL chest pain or shortness of breath patient denies any pain in her legs currently. Patient denies any recent illnesses such as fever cough vomiting or blood in her stools. Patient feels at her baseline currently Ms Geiger is a 79yo F w/ PMHx High Cholesterol, UTIs, Rheumatoid arthritis, Anxiety disorder, Panic attacks , TROPONIN I NEG X 1 IN ER had out pt monitor by cardiology recently WAS " OK " BUT HAD CVA 08/2019 Patient had a very uneventful hospital stay. She received some IV fluid resuscitation since prior to discharge the orthostatics vital signs were checked at the time of this note they were still pending, if they are negative the patient may be discharged home. No changes to her medications the patient was seen in consultation by neurology who deemed the patient appropriate for discharge as well. No new neurological deficits were evident no signs of abnormality on telemetry. Patient was in very good spirits to be going home later in the day. I have encouraged her to follow-up with her primary care physician within 1 week all of her concerns were addressed to the best of my ability signs and symptoms of concern and when to seek medical attention was discussed prior to discharge General: Alert, Oriented X3, Cooperative, No acute distress HEENT: Atraumatic, PERRLA, EOMI, Mucous membr. moist/pink Lungs: Clear to auscultation, Normal air movement Heart: RRR, no thrills Breasts: Not examined Abdomen: Normal bowel sounds, Soft, No tenderness Rectal Exam: not examined PELVIC: Examination not indicated Extremities: No cyanosis Neuro: Normal speech, Cranial nerves 3-12 NL Discharge Information Condition at Discharge: Improved Follow Up: Weeks Disposition/Orders: D/C to Home Scheduled Amlodipine Besylate (Amlodipine Besylate) 5 Mg Tablet, 5 MG PO DAILY for daily, (Reported) Entered as Reported by: MASSIEL AVILA on 01/19/20 1745 Last Action: Continued on 01/19/20 175 by MASSIEL AVILA Aspirin (Aspirin Ec) 81 Mg Tablet., 162 MG PO DAILY for CVA for 90 Days, #180 Ref 3 Prescribed by: TERA GIVENS MD on 08/11/19 1434 Last Action: Continued on 01/19/20 1501 by KRISTEL MONCADA MD Calcium Carbonate (Tums Ultra) 400 Mg Tab.chew, 750 MG PO HS for 2 hours after cholesterol, (Reported) Entered as Reported by: MASSIEL THOMPSON on 12/04/142336 Last Action: Edited on 01/19/201832 by MASSIEL AVILA Cholecalciferol (Vitamin D3) (Vitamin D) 2,000 Unit Capsule, 1 CAP PO DAILY, #30 Ref 3 (Reported) Entered as Reported by: MASSIEL THOMPSON on 12/04/142336 Last Action: Converted on 01/19/201500 by KRISTEL MONCADA MD Docusate Sodium (Colace) 100 Mg Capsule, 200 CAP PO BID, #30 (Reported) Entered as Reported by: MASSIEL THOMPSON on 12/04/142336 Last Action: Continued on 01/19/201500 by KRISTEL MONCADA MD Rosuvastatin Calcium (Crestor) 5 Mg Tablet, 5 MG PO HS for lower cholersterol, #30 Ref 0 (Reported) Entered as Reported by: MASSIEL AVILA on 01/19/20 174 Last Action: Edited on 01/19/202105 by Kala Alvarez Tofacitinib Citrate (Xeljanz Xr) 11 Mg Tab.er.24h, 11 MG PO DAILY for rheumatoid arthritis for 30 Days, #30 (Reported) Entered as Reported by: TERA GIVENS MD on 08/09/19818 Last Action: HELD on 01/19/201500 by KRISTEL MONCADA MD Scheduled PRN Acetaminophen (Tylenol) 325 Mg Tablet, 500 MG PO QID PRN for PAIN, (Reported) Entered as Reported by: MASSIEL AVILA on 01/19/201753 Last Action: New Order on 01/19/201753 by MASSIEL AVILA Clonidine Hcl (Clonidine Hcl) 0.1 Mg Tablet, 0.1 MG PO BID PRN for ELEVATED BP, SEE COMMENTS, #14 Take as needed for Systolic blood pressure (upper number) greater than 170 and/or Diastolic blood pressure (lower number) greather than 105 Prescribed by: ASHLEIGH MANCINI D.O. on 09/14/192130 Last Action: HELD on 01/19/201500 by KRISTEL MONCADA MD Polyethylene Glycol 3350 (Miralax) 17 Gm Powd.pack, 1 PACKET PO DAILY PRN for CONSTIPATION, #30 Ref 3 (Reported) Entered as Reported by: MASSIEL THOMPSON on 12/04/14 5447 Last Action: Continued on 01/19/20 1501 by KRISTEL MONCADA MD Justicifation of Admission Dx: Justifications for Admission: Justification of Admission Dx: Yes GILLIAN ENNIS MD Jan 20, 2020 10:30
[2020-01-20 11:00] VITALS: BP 143/70
--- NOTE | 2020-01-20 11:26 | PDOC2 ---
[facility] SALES REPRESENTATIVE 01/20/20 1126: CARDIAC CONSULT DATE OF CONSULT Date of Consult DATE: 01/20/20 TIME: 11:13 REASON FOR CONSULT Reason for Consult: chest discomfort, near syncope REFERRING PHYSICIAN Referring Physician: Dr. Boykin SOURCE Source: Chart review, Patient HISTORY OF PRESENT ILLNESS HISTORY OF PRESENT ILLNESS This is a 79 yo female who presented secondary to near syncopal episode. Patient reports having night sweats the night before last. Was having cramping in her bilateral lower legs. [place] weak. Patient was having a bowel movement and felt more weak and felt like she could pass out. Decided to come into the ED for further evaluation and treatment. Denies any chest pain, shortness of breath, dizziness, or palpitations. No acute events overnight. Is feeling much better this am. PAST MEDICAL HISTORY Cardiovascular: HTN, Hyperlipidemia CENTRAL NERVOUS SYSTEM: CVA GI: GERD Psych: Anxiety Musculoskeletal: Osteoarthritis Endocrine: Osteoporosis PAST SURGICAL HISTORY Past Surgical History: No pertinent history FAMILY HISTORY Family History: Cancer, Hypertension SOCIAL HISTORY Smoke: No ALCOHOL: none Drugs: None Lives: with Family CURRENT MEDICATIONS CURRENT MEDICATIONS Current Medications Medications (Trade) Dose Ordered Sig/Marielena Route PRN Reason Start Time Stop Time Status Last Admin Dose Admin Aspirin (Roberto Aspirin) 325 mg 1X ONCE PO 01/19/20 12:45 01/19/20 12:46 DC 01/19/20 13:23 Aspirin (Ecotrin) 162 mg DAILY PO 01/20/20 09:00 01/20/20 08:44 Docusate Sodium (Colace) 200 mg BID PO 01/19/20 21:00 01/20/20 08:45 Vitamin D (Vitamin D3) 2,000 unit DAILY PO 01/20/20 09:00 01/20/20 08:44 Sodium Chloride 1,000 ml @ 60 mls/hr [id number] IV 01/19/20 15:03 01/19/20 18:23 Acetaminophen (Tylenol) 650 mg PRN Q4HRS PRN PO TEMP OVER 100.4F OR MILD PAIN 01/19/20 15:15 01/19/20 21:03 Lorazepam (Ativan) 0.5 mg PRN Q4HRS PRN PO ANXIETY / AGITATION 01/19/20 15:15 01/20/20 05:44 Enoxaparin Sodium (Lovenox 40mg Syringe) 40 mg Q24H SQ 01/19/20 15:15 01/19/20 18:23 Amlodipine Besylate (Norvasc) 5 mg DAILY PO 01/19/20 18:00 01/20/20 08:45 Calcium Carbonate/ Glycine (Tums) 750 mg HS PO 01/19/20 21:00 01/19/20 21:03 ALLERGIES ALLERGIES: Coded Allergies: atorvastatin (Unverified Allergy, Intermediate, 12/04/14) codeine (Unverified Allergy, Intermediate, 12/04/14) doxycycline (Unverified Allergy, Intermediate, 12/04/14) levofloxacin (Unverified Allergy, Intermediate, 12/05/14) meperidine (Unverified Allergy, Intermediate, 12/04/14) nitrofurantoin (Unverified Allergy, Intermediate, 12/04/14) solifenacin (Unverified Allergy, Intermediate, 12/04/14) tetracycline (Unverified Allergy, Intermediate, 12/04/14) tramadol (Unverified Allergy, Intermediate, 12/05/14) ROS Review of System 14 point ROS conducted with pertinent positives noted above in hPI PHYSICAL EXAM PHYSICAL EXAM General: Alert, Cooperative, Oriented x3, NAD HEENT: Atraumatic, Mucous membr. moist/pink Lungs: Clear to auscultation Heart: Regular rate, Normal S1, Normal S2 Abdomen: Soft Extremities: No edema, Normal pulses Skin: No significant lesion Neuro: Normal speech, Sensation intact Psych/Mental Status: Mental status NL MUSCULOSKELETAL: Osteoarthritic changes both hands VITALS/I&O VITALS/I&O: Vital Signs Date Time Temp Pulse Resp B/P (MAP) Pulse Ox O2 Delivery O2 Flow Rate FiO2 01/20/20 08:45 85 01/20/20 08:00 Room Air 01/20/20 07:00 98.4 20 146/80 (102) 97 98.4 I & O 01/19/20 01/19/20 01/20/20 15:00 23:00 07:00 Intake Total 380 ml 400 ml Output Total 300 ml Balance 380 ml 100 ml LABS Lab: Laboratory Tests Test 01/19/20 11:30 01/19/20 16:05 01/19/20 19:30 Urine Collection Type Unknown Urine Color Yellow Urine Clarity Clear Urine pH 8.0 (<5.0-8.0) Urine Specific [place] <=1.005 (1.000-1.030) Urine Protein Negative mg/dL (NEG-TRACE) Urine Glucose (UA) Negative mg/dL (NEG) Urine Ketones (Stick) Negative mg/dL (NEG) Urine Blood Negative (NEG) Urine Nitrite Negative (NEG) Urine Bilirubin Negative (NEG) Urine Urobilinogen Dipstick 0.2 mg/dL (0.2 mg/dL) Urine Leukocyte Esterase Negative (NEG) Urine RBC 0 /HPF (0-2) Urine WBC 0 /HPF (0-4) Urine Bacteria 0 /HPF (0-FEW) Troponin I Quantitative < 0.017 ng/mL (0.000-0.055) < 0.017 ng/mL (0.000-0.055) ECHOCARDIOGRAM ECHOCARDIOGRAM <Conclusion> The left ventricular systolic function is normal. The Ejection Fraction is 55-60%. There is normal LV segmental wall motion. Transmitral Doppler flow pattern is Grade I-abnormal relaxation pattern. Doppler and Color Flow revealed trace tricuspid regurgitation. The PA pressure was estimated at 27 mmHg. There is no evidence of significant pericardial effusion. DATE: 08/09/19 1459 HEART CATH HEART CATH 1. Near syncope; most probably vasovagal episode as patient was straining during bowel movement. No acute event on tele. Recent event monitor from 11/02/19-11/29/19 showed SR with 1st degree AVB. Min HR 50. Max HR 120. No runs of VT, SVT, AFIB, or pauses noted. Recent echo with preserved LV systolic function. No WMA or structural abnormalities noted. 2. Hypertension; mildly elevated 3. Hyperlipidemia; allergy to statin 4. H/o CVA 5. Anxiety 6. GERD Recommendations Continue secondary prevention Home antiHTN therapy resumed No further inpatient cardiac workup warranted at this time. Follow up in our office with Dr. Ag 04/20/20 at 2:00pm Could consider outpatient ischemic evaluation ABIGAIL DUDLEY MD 01/20/201941: CARDIAC CONSULT ASSESSMENT/PLAN ASSESSMENT/PLAN Patient seen and examined. Agree with DAIRY NUTRITION SPECIALIST's assessment and plan. Near syncope most probably vasovagal Recent event monitor did not show any significant arrhythmias Recent 2D echo showed normal LVF Consider ischemic evaluation as outpatient Thank you for your consultation ANNELIESE MINAYA APRN Jan 20, 2020 11:26 ABIGAIL DUDLEY MD Jan 20, 2020 19:42
[2020-01-20 12:00] VITALS: BP 152/68
[2020-01-20 12:05] VITALS: BP 158/75
--- NOTE | 2020-01-20 12:07 | SNU/HH DC ---
DISCHARGE WITH HOME HEALTH DISCHARGE INFORMATION: Discharge Date: Jan 20, 2020 Final Diagnosis: Problems Medical Problems: (1) Left arm pain Status: Acute (2) Near syncope Status: Acute Condition on Discharge: Stable CODE STATUS: Code Status: Full HOME HEALTH: Face to Face: I certify this patient is under my care and that I, or a nurse practitioner or physician's staff assistant working with me, had a face to face encounter that meets the physician face to face encounter requirements with this patient on []. Medical Complications: CVA RN For Eval/Treatment: Yes Physical Therapy For: Evalulation/Treatment Occupational Therapy For: Evaluation/Treatment Pt Meets Homebound Status: Frequent falls w/ injury POST DISCHARGE ORDERS: Activity Instructions for Disc: Resume previous activity Weight Bearing Status after Di: Full weight bearing DIET AFTER DISCHARGE: Regular CHECKS AFTER DISCHARGE: Checks after discharge: Check blood press - daily, Check your Temp as needed, Weigh Yourself Daily TREATMENT/EQUIPMENT ORDERS: Adaptive Equipment Issued: None CERTIFICATION STATEMENT: Certification Statement: Certification Statement: Based on the above finding, I certify that this patient is confined to the home and needs intermittent mcfp care, physical therapy and/or speech therapy, or continues to need occupational therapy.~ This patient is under my care, and I have initiated the establishment of the plan of care.~ This patient will be followed by myself or a community physician who will periodically review the plan of care. Home Meds Active Scripts Clonidine Hcl (CLONIDINE HCL) 0.1 Mg Tablet, 0.1 MG PO BID PRN for ELEVATED BP, SEE COMMENTS, #14 TAB Take as needed for Systolic blood pressure (upper number) greater than 170 and/or Diastolic blood pressure (lower number) greather than 105 Prov:ASHLEIGH MANCINI DO 09/14/19 Aspirin (ASPIRIN EC) 81 Mg Tablet., 162 MG PO DAILY for CVA for 90 Days, #180 TAB.SR 3 Refills Prov:TERA GIVENS MD 08/11/19 Reported Medications Acetaminophen (TYLENOL) 325 Mg Tablet, 500 MG PO QID PRN for PAIN, TAB 01/19/20 Rosuvastatin Calcium (CRESTOR) 5 Mg Tablet, 5 MG PO HS for lower cholersterol, #30 TAB 0 Refills 01/19/20 Amlodipine Besylate (AMLODIPINE BESYLATE) 5 Mg Tablet, 5 MG PO DAILY for daily, TAB 01/19/20 Tofacitinib Citrate (Xeljanz Xr) 11 Mg Tab.er.24h, 11 MG PO DAILY for rheumatoid arthritis for 30 Days, #30 08/09/19 Polyethylene Glycol 3350 (MIRALAX) 17 Gm Powd.pack, 1 PACKET PO DAILY PRN for CONSTIPATION, #30 PACKET 3 Refills 12/04/14 Cholecalciferol (Vitamin D3) (VITAMIN D) 2,000 Unit Capsule, 1 CAP PO DAILY, #30 CAP 3 Refills 12/04/14 Docusate Sodium (COLACE) 100 Mg Capsule, 200 CAP PO BID, #30 CAP 12/04/14 Calcium Carbonate (TUMS ULTRA) 400 Mg Tab.chew, 750 MG PO HS for 2 hours after cholesterol, TAB.CHEW 12/04/14 GILLIAN ENNIS MD Jan 20, 2020 12:07
[2020-01-20 12:10] VITALS: BP 138/67
--- NOTE | 2020-01-20 12:32 | NUR ---
SS following for discharge planning. SS reviewed pt chart and discussed with pt RN. Pt is from home with spouse and is currently on room air. Pt and pt's spouse requesting home healthcare with no preference of company. Discharge orders received for home healthcare. SS phoned and faxed discharge orders and referral to [facility], ; fax [phone]. Walker order received. SS phoned and faxed order for walker to [facility], ; fax [phone]. Pt's RN notified.
--- NOTE | 2020-01-20 14:13 | PDOC ---
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 Oriented to time, place and person. PERRL. EOMI. CN: no focal findings. Muscle tone: normal. Muscle strength: 5/5 DTR: 2+ Plantar reflex: Flexor Gait: not examined in bed. Sensory exam: no abnormal findings. No cerebellar signs elicited. Review of Relevant I have reviewed the following items ebony (where applicable) has been applied. Labs Laboratory Tests Test 01/19/20 10:00 01/19/20 11:05 01/19/20 11:30 01/19/20 16:05 White Blood Count 5.5 x10^3/uL (4.0-11.0) Red Blood Count 3.74 x10^6/uL (3.50-5.40) Hemoglobin 11.9 g/dL (12.0-15.5) Hematocrit 34.3 % (36.0-47.0) Mean Corpuscular Volume 92 fL (79-100) Mean Corpuscular Hemoglobin 32 pg (25-35) Mean Corpuscular Hemoglobin Concent 35 g/dL (31-37) Red Cell Distribution Width 13.4 % (11.5-14.5) Platelet Count 255 x10^3/uL (140-400) Neutrophils (%) (Auto) 77 % (31-73) Lymphocytes (%) (Auto) 12 % (24-48) Monocytes (%) (Auto) 8 % (0-9) Eosinophils (%) (Auto) 2 % (0-3) Basophils (%) (Auto) 1 % (0-3) Neutrophils # (Auto) 4.2 x10^3/uL (1.8-7.7) Lymphocytes # (Auto) 0.7 x10^3/uL (1.0-4.8) Monocytes # (Auto) 0.5 x10^3/uL (0.0-1.1) Eosinophils # (Auto) 0.1 x10^3/uL (0.0-0.7) Basophils # (Auto) 0.1 x10^3/uL (0.0-0.2) Prothrombin Time 13.5 SEC (11.7-14.0) Prothromb Time International Ratio 1.1 (0.8-1.1) Sodium Level 142 mmol/L (136-145) Potassium Level 3.6 mmol/L (3.5-5.1) Chloride Level 104 mmol/L (98-107) Carbon Dioxide Level 28 mmol/L (21-32) Anion Gap 10 (6-14) Blood Urea Nitrogen 13 mg/dL (7-20) Creatinine 0.6 mg/dL (0.6-1.0) Estimated GFR (Cockcroft-Gault) 96.9 BUN/Creatinine Ratio 22 (6-20) Glucose Level 102 mg/dL (70-99) Calcium Level 9.2 mg/dL (8.5-10.1) Total Bilirubin 0.3 mg/dL (0.2-1.0) Aspartate Amino Transf (AST/SGOT) 27 U/L (15-37) Alanine Aminotransferase (ALT/SGPT) 31 U/L (14-59) Alkaline Phosphatase 74 U/L (46-116) Troponin I Quantitative < 0.017 ng/mL (0.000-0.055) < 0.017 ng/mL (0.000-0.055) IE-Pab-I-Type Natriuretic Peptide 120 pg/mL (0-449) Total Protein 7.8 g/dL (6.4-8.2) Albumin 4.2 g/dL (3.4-5.0) Albumin/Globulin Ratio 1.2 (1.0-1.7) Lipase 72 U/L (73-393) Urine Collection Type Unknown Urine Color Yellow Urine Clarity Clear Urine pH 8.0 (<5.0-8.0) Urine Specific [place] <=1.005 (1.000-1.030) Urine Protein Negative mg/dL (NEG-TRACE) Urine Glucose (UA) Negative mg/dL (NEG) Urine Ketones (Stick) Negative mg/dL (NEG) Urine Blood Negative (NEG) Urine Nitrite Negative (NEG) Urine Bilirubin Negative (NEG) Urine Urobilinogen Dipstick 0.2 mg/dL (0.2 mg/dL) Urine Leukocyte Esterase Negative (NEG) Urine RBC 0 /HPF (0-2) Urine WBC 0 /HPF (0-4) Urine Bacteria 0 /HPF (0-FEW) Test 01/19/20 19:30 Troponin I Quantitative < 0.017 ng/mL (0.000-0.055) Laboratory Tests Test 01/19/20 16:05 01/19/20 19:30 Troponin I Quantitative < 0.017 ng/mL (0.000-0.055) < 0.017 ng/mL (0.000-0.055) Medications Current Medications Aspirin (Roberto Aspirin) 325 mg 1X ONCE PO Last administered on 01/19/20at 13:23; Start 01/19/20 at 12:45; Stop 01/19/20 at 12:46; Status DC Ondansetron HCl (Zofran) 4 mg PRN Q8HRS PRN IV NAUSEA/VOMITING; Start 01/19/20 at 13:15; Stop 01/20/20 at 13:14; Status DC Amlodipine Besylate (Norvasc) 2.5 mg DAILY PO ; Start 01/20/20 at 09:00; Status Cancel Aspirin (Ecotrin) 162 mg DAILY PO Last administered on 01/20/20at 08:44; Start 01/20/20 at 09:00 Docusate Sodium (Colace) 200 mg BID PO Last administered on 01/20/20at 08:45; Start 01/19/20 at 21:00 Polyethylene Glycol (miraLAX PACKET) 17 gm DAILY PRN PO CONSTIPATION; Start 01/19/20 at 15:00 Calcium Carbonate/ Glycine (Tums) 750 mg DAILY PO ; Start 01/19/20 at 15:15; Stop 01/19/20 at 18:39; Status DC Vitamin D (Vitamin D3) 2,000 unit DAILY PO Last administered on 01/20/20at 08:44; Start 01/20/20 at 09:00 Sodium Chloride (Normal Saline Flush) 3 ml QSHIFT PRN IV AFTER MEDS AND BLOOD DRAWS; Start 01/19/20 at 15:15 Sodium Chloride 1,000 ml @ 60 mls/hr [id number] IV Last administered on 01/19/20at 18:23; Start 01/19/20 at 15:03 Ondansetron HCl (Zofran) 4 mg PRN Q4HRS PRN IV NAUSEA/VOMITING; Start 01/19/20 at 15:15 Acetaminophen (Tylenol) 650 mg PRN Q4HRS PRN PO TEMP OVER 100.4F OR MILD PAIN Last administered on 01/19/20at 21:03; Start 01/19/20 at 15:15 Al Hydroxide/Mg Hydroxide (Mylanta Plus Xs) 30 ml PRN DAILY PRN PO HEARTBURN / GAS; Start 01/19/20 at 15:15 Clonidine HCl (Catapres) 0.1 mg PRN Q6HRS PRN PO SBP>160 OR DBP>90; Start 01/19/20 at 15:15 Sodium Monofluorophosphate (Fleet Adult) 133 ml PRN DAILY PRN DC CONSTIPATION; Start 01/19/20 at 15:15 Docusate Sodium (Colace) 100 mg PRN BID PRN PO HARD STOOLS; Start 01/19/20 at 15:15 Albuterol Sulfate (Ventolin Neb Soln) 2.5 mg PRN Q4HRS PRN NEB SHORTNESS OF BREATH; Start 01/19/20 at 15:15 Guaifenesin (Robitussin) 200 mg PRN Q4HRS PRN PO COUGH; Start 01/19/20 at 15:15 Lorazepam (Ativan) 0.5 mg PRN Q4HRS PRN PO ANXIETY / AGITATION Last administered on 01/20/20at 05:44; Start 01/19/20 at 15:15 Enoxaparin Sodium (Lovenox 40mg Syringe) 40 mg Q24H SQ Last administered on 01/19/20at 18:23; Start 01/19/20 at 15:15 Amlodipine Besylate (Norvasc) 5 mg DAILY PO Last administered on 01/20/20at 08:45; Start 01/19/20 at 18:00 Calcium Carbonate/ Glycine (Tums) 750 mg HS PO Last administered on 01/19/20at 21:03; Start 01/19/20 at 21:00 Active Scripts Active Clonidine Hcl 0.1 Mg Tablet 0.1 Mg PO BID PRN Take as needed for Systolic blood pressure (upper number) greater than 170 and/or Diastolic blood pressure (lower number) greather than 105 Aspirin Ec (Aspirin) 81 Mg Tablet.dr 162 Mg PO DAILY 90 Days Reported Tylenol (Acetaminophen) 325 Mg Tablet 500 Mg PO QID PRN Crestor (Rosuvastatin Calcium) 5 Mg Tablet 5 Mg PO HS Amlodipine Besylate 5 Mg Tablet 5 Mg PO DAILY Xeljanz Xr (Tofacitinib Citrate) 11 Mg Tab.er.24h 11 Mg PO DAILY 30 Days Miralax (Polyethylene Glycol 3350) 17 Gm Powd.pack 1 Packet PO DAILY PRN Vitamin D (Cholecalciferol (Vitamin D3)) 2,000 Unit Capsule 1 Cap PO DAILY Colace (Docusate Sodium) 100 Mg Capsule 200 Cap PO BID Tums Ultra (Calcium Carbonate) 400 Mg Tab.chew 750 Mg PO HS Vitals/I & O Vital Sign - Last 24 Hours 01/19/20 01/19/20 01/19/20 01/19/20 14:20 14:50 16:22 17:00 Temp 98.1 98.1 Pulse 84 80 95 Resp 20 20 18 B/P (MAP) 141/65 (90) Pulse Ox 99 100 99 O2 Delivery Room Air Room Air 01/19/20 01/19/20 01/19/20 01/19/20 19:49 20:00 22:17 23:00 Temp 98.7 98.2 98.7 98.2 Pulse 83 88 Resp 18 18 B/P (MAP) 149/62 (91) 160/70 (100) Pulse Ox 98 99 98 O2 Delivery Room Air Room Air Room Air 01/20/20 01/20/20 01/20/20 01/20/20 03:16 07:00 08:00 08:45 Temp 98.3 98.4 98.3 98.4 Pulse 81 89 85 Resp 18 20 B/P (MAP) 159/73 (101) 146/80 (102) Pulse Ox 99 97 O2 Delivery Room Air Room Air Room Air 01/20/20 11:00 Temp 97.9 97.9 Pulse 83 Resp 20 B/P (MAP) 143/70 (94) Pulse Ox 100 O2 Delivery Room Air Intake and Output 01/19/20 01/19/20 01/20/20 15:00 23:00 07:00 Intake Total 380 ml 400 ml Output Total 300 ml Balance 380 ml 100 ml Justicifation of Admission Dx: Justifications for Admission: Justification of Admission Dx: Yes VIKAS LEROY MD Jan 20, 2020 14:13
--- NOTE | 2020-01-20 14:24 | NUR ---
Discharge: Teaching verbal and written. Reviewed medications, follow-up, syncope, ect. Patient and verbalized understanding. Home health set up. Patient assisted off of unit via wheelchair accompanied by nurse and .
== END 2020-01-20 14:10 | disposition home health service (06) | DRG 312 ==
LOC: ER 09:42 → ED HOLD 12:41 → 2 SOUTH 14:02 → OBSVTOIN 15:03 → 2 SOUTH 16:12
PROVIDERS: ADMIT Family Medicine; ATTEND Family Medicine
DX: R55 Syncope and collapse (principal); G45.9 Transient cerebral ischemic attack, unspecified; R47.01 Aphasia; E78.00 Pure hypercholesterolemia, unspecified; E78.5 Hyperlipidemia, unspecified; R07.89 Other chest pain; F41.0 Panic disorder [episodic paroxysmal anxiety]; I10 Essential (primary) hypertension; M19.90 Unspecified osteoarthritis, unspecified site; K59.00 Constipation, unspecified; M81.0 Age-related osteoporosis without current pathological fracture; M06.9 Rheumatoid arthritis, unspecified; K21.9 Gastro-esophageal reflux disease without esophagitis; M79.602 Pain in left arm; I07.1 Rheumatic tricuspid insufficiency; Z86.73 Personal history of transient ischemic attack (TIA), and cerebral infarction without residual deficits; Z82.49 Family history of ischemic heart disease and other diseases of the circulatory system; Z87.440 Personal history of urinary (tract) infections; Z87.01 Personal history of pneumonia (recurrent); Z79.899 Other long term (current) drug therapy; Z79.82 Long term (current) use of aspirin; Z88.6 Allergy status to analgesic agent; Z88.1 Allergy status to other antibiotic agents; Z88.5 Allergy status to narcotic agent; Z88.8 Allergy status to other drugs, medicaments and biological substances; Z80.9 Family history of malignant neoplasm, unspecified
CPT/HCPCS: 36415; 71045; 80053; 81001; 83690; 83880; 84484; 85025; 85610; 93005; 99285; G0378; G0379; J1650; J7030; 97116-GP